=== PATIENT | female | born 1945 | race Caucasian/White ===

== ENCOUNTER 2020-12-09 05:54 | Inpatient (IN) | payer MEDICARE, SELFPAY ==
[2020-12-09] VITALS (22 sets, daily range): BP systolic 131–187; BP diastolic 64–104; PULSE 73–107; RESP 14–24; TEMP 36.1–37.1; O2SAT 90–99; BMI 37.8
--- NOTE | ~2020-12-09 | XR_ITS ---
EXAMINATION: XR chest 1V portable DATE: 12/10/2020 06:08 INDICATION: Respiratory distress TECHNIQUE: frontal view of the chest was obtained. COMPARISON: Chest radiograph dated 03/27/[address] dated 12/10/2011 FINDINGS: Diffuse increased interstitial pattern in both lungs, right greater than left, with some peripheral [place] B-lines consistent with pulmonary edema. No pleural effusion or pneumothorax. The cardiomediast inal silhouette is normal. IMPRESSION: 1. Interval development of bilateral interstitial opacities and favor pulmonary edema over pneumonia. Reviewed, dictated and finalized at location A.
--- NOTE | ~2020-12-09 | CT_ITS ---
EXAMINATION: CTA chest abdomen pelvis DATE: 12/09/2020 06:35 INDICATION: Anterior chest pain. Assess for dissection. TECHNIQUE: Computed tomographic angiography (CTA) of the chest, abdomen and pelvis was performed with 100 cc of Omnipaque-350 intravenous contrast. Additional 3D reconstructions utilizing rotating maxim um intensity projection (MIP) were performed. Automated exposure control and iterative reconstruction technique were employed. The dose-length product was 1425.34 mGy-cm. COMPARISON: 03/27/2015 FINDINGS: Chest: Unchanged 4 mm noncalcified granuloma at the left lower lobe. Mild discoid atelectasis at the right m iddle lobe. No pneumonia, pulmonary edema or pleural effusion. Borderline heart size. No pericardial effusion. Thoracic aorta is normal in caliber with no dissection. No pathologically enlarged thoracic lymphadenopathy. Moderate thoracic spondylosis. Abdomen and pelvis: Diffuse hepatic steatosis. Cholecystectomy clips the gallbladder fossa. Spleen, pancreas, left kidney and bilateral adrenal glands are normal. 6 mm right renal cyst. Prominent diverticulosis with sigmoi d and descending colon predominance but without adjacent inflammatory change to suggest diverticuliti s. Small bowel and appendix are normal. Bladder, anteverted uterus and bilateral adnexa are normal. A bdominal aorta is normal in caliber with no dissection. Mild lumbar spondylosis. IMPRESSION: 1. No aortic dissection or other acute intrathoracic, abdominal or pelvic process. Reviewed, dictated and finalized at location A. IMPRESSION: 1. No aortic dissection or other acute intrathoracic, abdominal or pelvic proce ss.
--- NOTE | ~2020-12-09 | XR_ITS ---
EXAMINATION: XR abdomen/kub 1V EXAM DATE: 12/13/2020 16:22 INDICATION: Abdominal pain, constipation. TECHNIQUE: Frontal projection of the upper abdomen, frontal projection lower abdomen/pelvis for inter pretation. Comparison is made to prior examination from 03/25/2011. FINDINGS: Cholecystectomy clips. No dilated small bowel. Moderate amount of stool in the rectal vaul t, small to moderate amount of transverse colonic gas. Lung bases unremarkable. There is no organomeg susan. Mild lumbar levoscoliosis. IMPRESSION: Moderate amount of rectal vault stool, small to moderate amount of transverse colonic gas . Reviewed, dictated and finalized at location A. RACT OFFICER IMPRESSION: Moderate amount of rectal vault stool, small to moderate amount of transverse colonic gas.
--- NOTE | 2020-12-09 05:58 | ECG_ITS ---
Measurements Intervals [place] Rate: 81 P: 82 ND: 185 QRS: 65 QRSD: 118 T: 12 QT: 384 QTc: 448 Interpretive Statements SINUS RHYTHM ATRIAL AND VENTRICULAR PREMATURE COMPLEXES LOW QRS VOLTAGE IN PRECORDIAL LEADS RIGHT BUNDLE BRANCH BLOCK ABNORMAL ECG Electronically Signed On 12-09-2020 8:04:45 CDT by Sancho Jordan D.O.
[2020-12-09 06:25] LABS: Basophils Absolute Auto 0.1 K/mm3 (0.0-0.1); Basophils Percent Auto 0.8 % (0.2-1.2); Eosinophils Absolute Auto 0.1 K/mm3 (0-0.3); Eosinophils Percent Auto 1.1 % (0-4.4); Hematocrit 42.2 % (37.0-47.0); Hemoglobin 14.2 g/dL (12.0-15.0); Immature Granulocyte Absolute 0.01 K/mm3 (0.00-0.031); Immature Granulocyte Percent A 0.1 % (0-0.5); Lymphocytes Absolute Auto 1.62 K/mm3 (0.9-3.2); Lymphocytes Percent Auto 22.8 % (18.3-44.2); Mean Corpuscular HGB Conc 33.6 g/dl (32-36); Mean Corpuscular Hemoglobin 32.6 pg (26-34); Mean Platelet Volume 10.2 fl (7.4-10.4); Monocytes Absolute Auto 0.5 K/mm3 (0.1-0.6); Monocytes Percent Auto 7.2 % (2.6-8.5); Neutrophils Absolute Auto 4.8 K/mm3 (1.3-6.7); Platelet Count Result 273 k/mm3 (150-375); Red Blood Count 4.35 M/mm3 (4.2-5.4); Red Cell Distribution Width 12.9 % (11.5-14.5); White Blood Count 7.1 K/mm3 (4.5-10.0)
--- NOTE | 2020-12-09 06:29 | ED.CHESTPAIN ---
HPI - Chest Pain General Chief Complaint: Chest Pain Stated Complaint: chest pain Time Seen by Provider: 12/09/20 06:17 Source: patient Mode of arrival: EMS Limitations: no limitations History of Present Illness HPI narrative: 75-year-old female with a history of A. fib in the past, CAD status post stents arrives complaining of sudden onset of anterior chest pain radiating to the jaw bilateral arms and back since 11 PM last night. Pain was worse with a deep breath and with movement. No fever, no cough, no hemoptysis. No previous history of same. Patient first thought she had GERD took stomach medicines without relief. Pain sharp and constant. Related Data Home Medications Medication Instructions Recorded Confirmed albuterol sulfate INHALATION 12/09/20 alprazolam 12/09/20 apixaban [Eliquis] mg 12/09/20 blood sugar diagnostic [OneTouch 12/09/20 12/09/20 Verio test strips] cefuroxime axetil 12/09/20 ergocalciferol (vitamin D2) 12/09/20 glimepiride mg 12/09/20 levothyroxine 12/09/20 lisinopril 12/09/20 montelukast mg 12/09/20 simvastatin mg 12/09/20 sotalol 12/09/20 Allergies Allergy/AdvReac Type Severity Reaction Status Date / Time sulfamethoxazole Allergy Unknown Hives Verified 12/09/20 06:13 Review of Systems Review of Systems: CONSTITUTIONAL: no fever, no weight loss, no confusion EYES: no vision changes, no eye pain ENT: no rhinorrhea, no sore throat, no difficulty swallowing CARDIOVASCULAR: positive for chest pain, no leg edema, no palpitations RESPIRATORY: no cough, no shortness of breath, no hemoptysis GASTROINTESTINAL: no abdominal pain, no nausea, no vomiting, no diarrhea GENITOURINARY: no flank pain, no dysuria, no hematuria SKIN: no rash, no jaundice MUSCULOSKELETAL: no back pain, no trauma. NEUROLOGIC: No headache, no dizziness, no focal weakness PSYCHIATRIC: No hallucinations, no suicidal ideation Exam Narrative: General: alert, afebrile, answering all questions appropriately Head: normocephalic, atraumatic Eyes: EOMI bilaterally, anicteric, no injection ENT: moist mucous membranes, oropharynx patent, no rhinorrhea Neck: supple, trachea midline, no JVD Chest: equal chest rise bilaterally, no chest wall trauma noted Lungs: clear to auscultation bilaterally, respirations unlabored CV: regular rate, no YAMILE B, calf size equal bilaterally Abd: soft, non-distended, mild epigastric tend, no rebound, no gaurding, negative Phillips's : no CVA tenderness B, bladder non-distended EXT: no deformity noted, moving all extremities equally Skin: warm, dry, no pallor Neuro: alert, oriented x 3; CN 2-12 grossly intact, no dysarthria Psych: affect appropriate, thought content normal Course Course Emergency Course: CTA chest without evidence of acute aortic,thoracic or abdominal abnormality; Lungs without infiltrate or edema. Pain improving after nitro; EKG with new block compared to 2019; troponin positive at 0.11; other labs normal Patient of Dr Rolle last saw him 30 days ago. Spoke to Dr Ramos who will see patient in AM; chest pain currently 5/10 after 2 nitro. No relief with morphine. BP sys 146;will apply NTP; Reevaluation(s) Reevaluation #1: Patient back from CTA, no gross abnormalities seenby me, no dissection, no dilatation. Patient still saying now her pain is 10 out of 10 ordered nitro sublingual no edema on CTA chest no infiltrate, await troponin. Date: 12/09/20 Time: 06:39 Reevaluation #2: Patient 7/10 after 1 nitro; 2nd nitro given Date: 12/09/20 Time: 07:09 Reevaluation #3: Pain 5/10 after 2nd nitro; morphine ordered. Date: 12/09/20 Time: 07:23 Consultations Consultation #1: Spoke with Dr Ramos; we will keep patient NPO, hold eliquis and they will see her around 8 AM in ED; also advised NTP to anterior CA Date: 12/09/20 Time: 07:30 Vital Signs Vital signs: Vital Signs Temperature 36.9 C 12/09/20 05:58 Pulse Rate 81 12/09/20 05:58 Respiratory Rate 21 H 12/09/20 05:5
[2020-12-09 06:31] LABS: INR 0.9; Prothrombin Time 12.5 Seconds (11.1-14.7)
[2020-12-09 06:32] LABS: Partial Thromboplastin Time 28.3 SECONDS (22.3-36.8)
[2020-12-09 06:35] LABS: Anion Gap 9 mmol/L (8-16); Blood Urea Nitrogen 20 mg/dL (7-17); Calcium 9.6 mg/dL (8.4-10.2); Carbon Dioxide 28 mmol/L (22-30); Chloride 105 mmol/L (98-107); Estimated CRCL calculation 49 ml/min; Estimated Glomerular Filt Rate 54; Glucose 214 mg/dL (65-110); Potassium 4.4 mmol/L (3.4-5.0); Sodium 142 mmol/L (137-145)
[2020-12-09] MEDS: NITROGLYCERIN SL 0.4 MG TABLET SUBLINGUAL (06:54)
[2020-12-09] MEDS: SODIUM CHLORIDE 0.9% IV 1,000 ML 999 ML IV CONT (06:54)
[2020-12-09] MEDS: MORPHINE SULFATE (*CRX) 4 MG/ML INJ IV PUSH (07:23)
[2020-12-09] MEDS: SODIUM CHLORIDE 0.9% IV 1,000 ML 125 ML IV CONT (07:52)
[2020-12-09] MEDS: ONDANSETRON INJ 4 MG/2 ML VIAL IV PUSH ×2 (07:52→13:04)
[2020-12-09] MEDS: NITROGLYCERIN OINTMENT 1 INCH DOSE (07:56)
[2020-12-09] MEDS: ASPIRIN 81 MG CHEWABLE TABLET PO (08:25)
[2020-12-09 08:27] LABS: Cholesterol 173 mg/dL (0-200); HDL Direct 75 mg/dL; Triglycerides 208 mg/dL (<150)
[2020-12-09 08:39] LABS: LDL Cholesterol Direct 53 mg/dL
--- NOTE | 2020-12-09 10:00 | WPDHPUPDATE1 ---
History and Physical Update Update Date/Time: 12/09/20 1000am History and Physical has been reviewed, including an updated exam of the patient. There are NO changes in the patient's condition. Risks, benefits, and alternatives have been discussed and questions answered. Patient agrees to proceed with procedure.
--- NOTE | 2020-12-09 10:00 | WPDMODSED ---
Moderate Sedation Note-Pt Data Patient Data Allergies Allergy/AdvReac Type Severity Reaction Status Date / Time sulfamethoxazole Allergy Unknown Hives Verified 12/09/20 06:13 Home Medications Medication Instructions Recorded Confirmed Type albuterol sulfate INHALATION 12/09/20 History alprazolam 12/09/20 History apixaban [Eliquis] mg 12/09/20 History blood sugar diagnostic [OneTouch 12/09/20 12/09/20 History Verio test strips] cefuroxime axetil 12/09/20 History ergocalciferol (vitamin D2) 12/09/20 History glimepiride mg 12/09/20 History levothyroxine 12/09/20 History lisinopril 12/09/20 History montelukast mg 12/09/20 History simvastatin mg 12/09/20 History sotalol 12/09/20 History Current Medications: Active Medications Acetaminophen (Acetaminophen 325 Mg Tablet) 650 mg PO Q4H PRN PRN Reason: Mild Pain (1-3) Al Hydrox/Mg Hydrox/Simethicone (Mag Hydrox/Al Hydrox/Simeth 30 Ml Udc) 30 ml PO Q6H PRN PRN Reason: Indigestion Albuterol (Albuterol Sulfate Neb 2.5 Mg/0.5 Ml Inh) 2.5 mg INHALATION Q4HRT PRN PRN Reason: Shortness Of Breath Aspirin (Aspirin 81 Mg Chewable Tablet) 81 mg PO DAILY@0800 JEFFERY Last Admin: 12/09/20 08:25 Dose: 81 mg Documented by: Dextrose (Dextrose 50% 25 Gm/50 Ml Syringe) 12.5 gm IV PUSH PRN PRN; Protocol PRN Reason: Hypoglycemia Glucagon (Glucagon For Inj 1 Mg Vial) 1 mg IM PRN PRN; Protocol PRN Reason: Hypoglycemia Glucose (Glucose Oral Gel 15 Gm Of Glucse In 37.5 Gm Tube) 15 gm PO PRN PRN; Protocol PRN Reason: Hypoglycemia Dextrose (Dextrose 5% 1,000 Ml) 1,000 mls @ 100 mls/hr IVPB PRN PRN; Protocol PRN Reason: Hypoglycemia Sodium Chloride (Normal Saline Iv) 1,000 mls @ 125 mls/hr IV CONT .Q8H ONE Stop: 12/09/20 22:51 Insulin Aspart (Insulin Aspart (*Bkc) 100 Units/Ml) 2 - 5 units SUB-Q TIDWM JEFFERY; Protocol Nitroglycerin (Nitroglycerin Sl 0.4 Mg Tablet) 0.4 mg SUBLINGUAL Q5MIN PRN PRN Reason: Chest Pain Ondansetron HCl (Ondansetron Inj 4 Mg/2 Ml Vial) 4 mg IV PUSH Q6H PRN PRN Reason: Nausea And Vomiting Last Admin: 12/09/20 13:04 Dose: 4 mg Documented by: Sedation/Anesthesia: No previous sedation/anesthesia problems (including family history). [facility] Past Medical History Medical History Anxiety CAD (coronary artery disease) Chronic anticoagulation COPD (chronic obstructive pulmonary disease) DM2 (diabetes mellitus, type 2) Glaucoma History of atrial fibrillation Hyperlipidemia associated with type 2 diabetes mellitus Hypertension associated with type 2 diabetes mellitus Hypothyroidism Surgical History Surgical History H/O cataract extraction H/O heart artery stent Previous RCA and a stent today 12/09/2020 H/O partial thyroidectomy H/O right wrist surgery H/O tubal ligation Hx of cholecystectomy Family History Family History Mother Cancer Father Pulmonary emboli Social History Social History (Updated 12/09/20 @ 15:03 by Galina Briones NP) Social History: The patient tells me that she never smoked but she had secondhand exposure through her ex- and other family members as well as her job who. No alcohol marijuana or illicit drugs. 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 She had 7 children but only 6 arrived. She is . She is does not have a durable power litigation attorney for healthcare. Code status full code. Alcohol intake: never Substance use: never Spiritual care concerns: No Mod Sed Physical Exam Physical Exam Pre Procedural Exam: Normal: Appearance, Eyes, Ears, Nose, Neck, Throat, Airway, Lungs, Heart Size, Heart Rate, Heart Rhythm, Neuro Exam, Abdomen, Liver, Kidneys, Spleen, Breasts, Genitalia, Extremities and Skin Hours since solid foods: 8 Hours since liquid intake: 8 Mallampati Classification: class 1 Internal Medicine - PN: Ob
--- NOTE | 2020-12-09 10:39 | ECG_ITS ---
Measurements Intervals [place] Rate: 84 P: 94 UT: 202 QRS: 28 QRSD: 122 T: 5 QT: 383 QTc: 453 Interpretive Statements SINUS RHYTHM BORDERLINE AV CONDUCTION DELAY RIGHT BUNDLE BRANCH BLOCK LOW VOLTAGE- DIFFUSE LEADS MINIMAL Q WAVES- INFERIOR LEADS ANTEROSEPTAL ST ELEVATION MYOCARDIAL INFARCT- ACUTE ABNORMAL ECG Electronically Signed On 12-09-2020 15:38:48 CDT by Sancho Jordan D.O.
--- NOTE | 2020-12-09 10:41 | ADMGEN ---
This patient, Jenni Salinas, was admitted to IMU Room 206-01. Patient/family oriented to hospital policies and general routines including ID bracelet, bed and alarms, visiting hours, pain management, procedures, bathroom and other care routines, personal items, smoking policy, room service/diet, and visiting hours. Information on how to activate the Rapid Response Team has been discussed. Patient/Family are encouraged to report perceived risks to care and to ask questions if they do not understand what they are told or what they should do.
--- NOTE | 2020-12-09 11:10 | PC.NURSE ---
Patient to geoscience laboratory technician via hospital bed, IV access intact.
--- NOTE | 2020-12-09 12:45 | PC.NURSE ---
This patient, Jenni Salinas, was received from [[id number]] on 12/09/20 at 1245. Patient/family oriented to unit policies and routines RECEIVED PATIENT VIA SEAMLESS TUBE MILL OPERATOR AFTER PROCEDURE. REPORT DONE AT BEDSIDE WITH NURSE BURNS. RIGHT GROIN SITE CLEAN DRY AND INTACT, NO BLEEDING OR HEMATOMA PRESENT.
--- NOTE | 2020-12-09 12:56 | PM.CNCAR ---
Assessment and Plan Assessment and plan (1) ST elevation [place] (STEMI): Code(s): I21.3 - ST elevation (STEMI) myocardial infarction of unspecified site Status: Acute Assessment and Plan: Patient presents with unstable angina initial EKG with RBBB without acute ST elevation changes. However, subsequent EKG revealed new septal in inferior ST-elevation in association with worsening chest pain. Emergent coronary angiography advised. Risks, benefits, alternatives explained to the patient and her daughter over the phone. Explained to both patient at significantly higher bleeding risk as she was on full systemic anticoagulation with Eliquis in which her last dose was evening prior to presentation. Statin, sotalol. Will need to minimize triple therapy much as possible recommendations to follow after coronary angiography depending on intervention. Risks including but not limited to , stroke, myocardial infarction, bleeding, infection, renal insufficiency and or arrhythmias. 2D echocardiogram. Case discussed with my interventional partner Dr. Sorenson immediately upon review 12 lead EKG who verbalized understanding and agreed to proceed with emergent coronary angiography. (2) CAD (coronary artery disease): Code(s): I25.10 - Atherosclerotic heart disease of [place] coronary artery without angina pectoris Status: Acute Assessment and Plan: As above, history of RCA stent 2.5 x 12 mm drug-eluting to RCA 2010. Continue aggressive medical therapy. (3) Hypertension associated with type 2 diabetes mellitus: Code(s): E11.59 - Type 2 diabetes mellitus with other circulatory complications; I15.2 - Hypertension secondary to endocrine disorders Status: Acute Assessment and Plan: Stable, no acute issues. Continue medical therapy. (4) Hyperlipidemia associated with type 2 diabetes mellitus: Code(s): E11.69 - Type 2 diabetes mellitus with other specified complication; E78.5 - Hyperlipidemia, unspecified Status: Acute Assessment and Plan: Continue simvastatin. Goal LDL less than 70. Check fasting lipid profile. 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 Will resume post cardiac catheterization when appropriate. (6) History of atrial fibrillation: Code(s): Z86.79 - Personal history of other diseases of the circulatory system Status: Acute Assessment and Plan: Maintaining sinus rhythm on sotalol. Monitor 12 EKG, QT interval and renal function. Stable thus far. History of Present Illness History of Present Illness Consult date/time: Date of service: 12/09/20 1040 Requesting physician: Rachell Rice MD Consult reason: chest pain Reason For Visit: chest pain rule out acs Narrative: Patient is a very pleasant 75-year-old female well known to me whom I follow as an outpatient with a past medical history significant for hypertension, diabetes mellitus, atrial fibrillation status post cardioversion in chronic maintenance with sotalol and systemic anticoagulation with Eliquis, history of CAD with remote drug-eluting stent implantation 12/21/10 with 2.5x12 mm Xience drug-eluting stent to RCA who states she was in her usual state of health when approximately 11:00 p.m. at rest she developed rather sudden onset substernal chest pressure worse with deep breathing. Patient states she had eaten approximately 2 hours before felt initially this may have just been severe acid indigestion for which she took antacids without any resolution. When asked why she did not present sooner she states she did not have a ride until this morning (which upon speaking to her daughter was not the case) and I reminded her she should have called EMS. She denied associated shortness of breath, nausea vomiting. She has never experienced symptoms similar to this in the past. Sh
--- NOTE | 2020-12-09 13:03 | PC.NURSE ---
Cardiopulmonary Rehab Services flyer was given to patient.
[2020-12-09 13:12] LABS: Glucose Point of Care 218 mg/dl (65-105)
--- NOTE | 2020-12-09 13:48 | ECG_ITS ---
Measurements Intervals [place] Rate: 94 P: 90 [place]: 209 QRS: 65 QRSD: 120 T: 30 QT: 366 QTc: 459 Interpretive Statements SINUS RHYTHM ATRIAL PREMATURE COMPLEX RIGHT BUNDLE BRANCH BLOCK LOW VOLTAGE- DIFFUSE LEADS ANTEROSEPTAL INFARCT- PROBABLY RECENT BASELINE ARTIFACT- II, III, AVL, AVF ABNORMAL ECG Electronically Signed On 12-09-2020 15:40:37 CDT by Sancho Jordan D.O.
--- NOTE | 2020-12-09 14:45 | PM.IMHP ---
H&P: HPI History of Present Illness Date/Time: 12/09/20 14:45 this is a 75-year-old female patient who has a past medical history of atrial fibrillation and coronary artery disease with a stent in her RCA. The patient was complaining of anterior chest pain radiating to the jaw bilateral arms and back since 11:00 p.m. last night. Patient stated that her pain is worse with a deep breath and with movement. She has no fever chills or cough. No hemoptysis. Patient thought that she was having problems with her acid reflux and took medicine for stomach without any released. Her pain was sharp and constant. First EKG was read as atrial ventricular premature complexes low QRS voltage right bundle branch block. The neck is EKG shows a STEMI in V1 V2 and V3. The patient was taken to cardiac color laboratory technician and received another stent. Please see Cardiology procedure note. The patient has been nauseated since she came back from the cardiac catheterization lab. Her Eliquis was placed on hold and will resume post cardiac catheterization when appropriate. Her troponin was noted to be 0.110. Blood sugar 218. A1c 7.0. The patient was given aspirin, IV fluids, nitroglycerin, morphine, Zofran, heparin and, fentanyl. The patient is being admitted to inpatient status on the date of service of 12/09/2020. Chief Complaint: Chest pain Review of Systems Review of Systems: All systems reviewed & are unremarkable except as noted in HPI and below Constitutional: Constitutional: Reports as per HPI and Reports no additional constitutional complaints Eyes: Eyes: Reports as per HPI and Reports no additional eye complaints ENT: Reports system reviewed and no additional complaints, except as documented and Reports Normal hearing present Cardiovascular: Cardiovascular: Reports no additional cardiovascular complaints Respiratory: Respiratory: Reports no additional respiratory complaints and Reports no additional respiratory complaints Gastrointestinal: Gastrointestinal: Reports as per HPI and Reports no additional gastrointestinal complaints Musculoskeletal: Musculoskeletal: Reports no additional musculoskeletal complaints Integumentary/Breasts: Skin/Breast: Reports system reviewed and no additional complaints, except as docu and Reports as per HPI Neurologic: Reports system reviewed and no additional complaints, except as documented, Reports as per HPI and Reports Normal hearing present Psychiatric: Psychiatric: Reports no additional psychiatric complaints and Reports as per HPI Endocrine: Endocrine: Reports no additional endocrine complaints Hematologic/Lymphatic: Hematologic/Lymphatic: Reports no additional hematologic/lymphatic complaints Allergic/Immunologic: Allergic/Immunologic: Reports no additional allergic/immunologic complaints [facility] Past Medical History Medical History (Updated 12/09/20 @ 14:57 by Galina Briones NP) Anxiety CAD (coronary artery disease) Chronic anticoagulation COPD (chronic obstructive pulmonary disease) DM2 (diabetes mellitus, type 2) Glaucoma History of atrial fibrillation Hyperlipidemia associated with type 2 diabetes mellitus Hypertension associated with type 2 diabetes mellitus Hypothyroidism Surgical History Surgical History (Updated 12/09/20 @ 14:57 by Galina Briones NP) H/O cataract extraction H/O heart artery stent Previous RCA and a stent today 12/09/2020 H/O partial thyroidectomy H/O right wrist surgery H/O tubal ligation Hx of cholecystectomy Family History Family History (Updated 12/09/20 @ 14:58 by Galina Briones NP) Mother Cancer Father Pulmonary emboli Social History Social History (Updated 12/09/20 @ 15:03 by Galina Briones NP) Social History: The patient tells me that she never smoked but she had secondhand exposure through her ex- and other family members as well as her job who. No alcohol marijuana or illicit drugs. 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 She had 7 chil
--- NOTE | 2020-12-09 16:57 | WPDCARDPROC ---
Cardiac Cath Procedure Note Date of procedure:: 12/09/20 Performing physician:: Sophia Sorenson MD date of service 12/09/2020 Indication:: anterior STEMI Brief clinical history:: 75 patient history of RCA stent, hypertension, AFib Eliquis who presents to hospital with chest pain. Was found to have intermittent ST elevation [place] Procedure Procedure performed:: 1-Moderate sedation that started at a.m.and ended at 10:45 a.m.using25 mcg fentanyl. The registered nurse was darin curtis. 2-Selective left and right coronary angiogram. 3-Left heart catheterization with measurement of LVEDP and measurement of gradient across aortic valve. 4- deployment of drug-eluting stent 3.25 x 18 covering proximal LAD. 4-Right common femoral arterial angiogram. 5-Deployment of 6 Beninese Angio-Seal. Sedation/Medication given:: Moderate sedation. Access site:: Right common femoral artery. Estimated blood loss:: 10cc Procedure note:: After informed consent patient was brought in to cytogenetics laboratory manager with the was draped and prepped in usual manner. Moderate sedation was given and the right groin was infiltrated using 1% lidocaine. Five Beninese sheath was obtained using micropuncture needle and the modified Seldinger technique. Selective left coronary angiogram was done using JL4 catheter with the tip of the catheter placed in the left main coronary artery. then after that guide catheter CLS 3.5 was advanced engaging the left main. Coronary luge wire was advanced to distal LAD and balloon angioplasty was done using 3 by 15 with inflation done under nominal pressure for 25 seconds. Th the deployed a drug-eluting stent 3.25 x 18 covering proximal LAD and over pressure for 25 seconds. Selective right coronary angiogram was done using JR4 catheter with the tip of the catheter placed to the right coronary artery. After that 5 Beninese pigtail catheter was advanced across the aortic valve into the left ventricle with measurement of LVEDP and measurement of gradient across aortic valve. Right common femoral arterial angiogram was done. Findings:: 1- left coronary artery is a large artery that divides into large LAD, large circumflex artery. Left main is Free of disease. 2- left anterior descending artery is a large artery that runs and wraps around the apex. There is a large clot hanging at the proximal LAD with JAVID flow 2. At the very proximal portion of the LAD there is a large diagonal branch that looks unremarkable. 3- leftcircumflex artery is a large artery And has proximal 30% at then small OM1 branch looks unremarkable. Large om 2 branch distally has ostial 70%. 4- right coronary artery is Totally occluded proximally 5- LVEDP was 22 mm Hgand no gradient across aortic valve. 6- opening arterial pressure was 160/80and closing pressure was 130/70 7- right femoral artery angiogram shows no significant disease in the right common femoral artery. Conclusion:: - successful stenting of proximal LAD culprit lesion for STEMI. - chronic total occlusion of right coronary artery with [id number] collaterals Assessment and Plan Additional Plan - continue aspirin and Brilinta - aggressive risk factor modification for CAD
[2020-12-09] MEDS: ACETAMINOPHEN 325 MG TABLET 650 MG PO (20:14)
[2020-12-09] MEDS: MAG HYDROX/AL HYDROX/SIMETH 30 ML UDC PO (20:14)
[2020-12-09] MEDS: SOTALOL HCL 80 MG TABLET PO (20:14)
[2020-12-09] MEDS: lisinopriL 20 MG TABLET 40 MG PO (20:15)
[2020-12-09] MEDS: TICAGRELOR 90 MG TABLET PO (20:17)
[2020-12-09 23:23] LABS: Glucose Point of Care 210 mg/dl (65-105)
[2020-12-10] VITALS (15 sets, daily range): BP systolic 125–158; BP diastolic 65–99; PULSE 85–107; RESP 16–30; TEMP 36.6–37; O2SAT 94–100
[2020-12-10] MEDS: ALPRAZolam (*CRX) 0.25 MG TABLET PO (01:41)
[2020-12-10 05:09] LABS: Basophils Absolute Auto 0.1 K/mm3 (0.0-0.1); Basophils Percent Auto 0.4 % (0.2-1.2); Eosinophils Percent Auto 0.1 % (0-4.4); Hemoglobin 13.9 g/dL (12.0-15.0); Immature Granulocyte Absolute 0.07 K/mm3 (0.00-0.031); Immature Granulocyte Percent A 0.5 % (0-0.5); Lymphocytes Absolute Auto 0.91 K/mm3 (0.9-3.2); Lymphocytes Percent Auto 6.6 % (18.3-44.2); Mean Corpuscular HGB Conc 32.3 g/dl (32-36); Mean Corpuscular Hemoglobin 31.4 pg (26-34); Mean Corpuscular Volume 97.1 fl (80-100); Mean Platelet Volume 10.2 fl (7.4-10.4); Monocytes Absolute Auto 0.8 K/mm3 (0.1-0.6); Monocytes Percent Auto 6.1 % (2.6-8.5); Neutrophils Absolute Auto 11.9 K/mm3 (1.3-6.7); Neutrophils Percent Auto 86.3 % (45.5-73.1); Platelet Count Result 263 k/mm3 (150-375); Red Blood Count 4.43 M/mm3 (4.2-5.4); Red Cell Distribution Width 13.1 % (11.5-14.5); White Blood Count 13.8 K/mm3 (4.5-10.0)
[2020-12-10 05:35] LABS: Alanine Aminotransferase 78 U/L (4-35); Albumin Level 4.2 g/dL (3.5-5.1); Alkaline Phosphatase 73 U/L (38-126); Anion Gap 7 mmol/L (8-16); Aspartate Amino Transferase 308 U/L (14-36); Bilirubin,Total 0.9 mg/dL (0.2-1.3); Blood Urea Nitrogen 16 mg/dL (7-17); Carbon Dioxide 26 mmol/L (22-30); Chloride 104 mmol/L (98-107); Estimated CRCL calculation 55 ml/min; Estimated Glomerular Filt Rate > 60; Glucose 225 mg/dL (65-110); Magnesium 2.1 mg/dL (1.6-2.3); Potassium 4.1 mmol/L (3.4-5.0); Sodium 137 mmol/L (137-145)
[2020-12-10] MEDS: LEVOTHYROXINE SODIUM 75 MCG TABLET PO (05:42)
[2020-12-10 05:45] LABS: Lactate Dehydrogenase 2126 U/L (313-618)
[2020-12-10] MEDS: FUROSEMIDE INJ 40 MG/4 ML VIAL IV PUSH (06:06)
[2020-12-10 09:06] LABS: Glucose Point of Care 265 mg/dl (65-105)
[2020-12-10] MEDS: INSULIN ASPART (*BKC) 100 UNITS/ML SUB-Q ×2 (09:07→13:14)
[2020-12-10] MEDS: ASPIRIN 81 MG CHEWABLE TABLET PO (10:40)
[2020-12-10] MEDS: lisinopriL 20 MG TABLET 40 MG PO (10:40)
[2020-12-10] MEDS: SIMVASTATIN 20 MG TABLET PO (10:41)
[2020-12-10] MEDS: MONTELUKAST SODIUM 10 MG TABLET PO (10:41)
[2020-12-10] MEDS: SOTALOL HCL 80 MG TABLET PO ×2 (10:41→20:09)
[2020-12-10] MEDS: INSULIN GLARGINE (*BKC) 100 UNITS/ML 15 UNITS SUB-Q (10:42)
[2020-12-10] MEDS: TICAGRELOR 90 MG TABLET PO ×2 (10:42→20:10)
--- NOTE | 2020-12-10 10:52 | WPDCNINT ---
Assessment and Plan Assessment and plan (1) ST elevation [place] (STEMI): Code(s): I21.3 - ST elevation (STEMI) myocardial infarction of unspecified site Status: Acute Assessment and Plan: status post cardiac catheterization and successful stenting of proximal LAD culprit lesion for STEMI. which also showed chronic total occlusion of right coronary artery with [id number] collaterals DAPT, beta-marti, statin, FARIDA-inhibitor (2) DM2 (diabetes mellitus, type 2): Code(s): E11.9 - Type 2 diabetes mellitus without complications Status: Acute Assessment and Plan: Accu-Cheks with sliding scale insulin. A1c 7.0. increase sliding scale add Lantus (3) COPD (chronic obstructive pulmonary disease): Code(s): J44.9 - Chronic obstructive pulmonary disease, unspecified Status: Chronic Assessment and Plan: Continue with Singulair and inhalers. (4) Hypothyroidism: Code(s): E03.9 - Hypothyroidism, unspecified Status: Chronic Assessment and Plan: TSH is in normal range continue levothyroxine. (5) History of atrial fibrillation: Code(s): Z86.79 - Personal history of other diseases of the circulatory system Status: Acute Assessment and Plan: Eliquis is currently on hold will be resumed as per cardiology recommendation currently in sinus rhythm (6) Hypertension associated with type 2 diabetes mellitus: Code(s): E11.59 - Type 2 diabetes mellitus with other circulatory complications; I15.2 - Hypertension secondary to endocrine disorders Status: Acute Assessment and Plan: continue lisinopril and sotalol (7) Anxiety: Code(s): F41.9 - Anxiety disorder, unspecified Status: Chronic Assessment and Plan: Continue with alprazolam p.r.n. (8) Congestive heart failure: Code(s): I50.9 - Heart failure, unspecified Status: Acute Assessment and Plan: continue FARIDA-inhibitor and beta-marti chest x-ray showed pulmonary edema and patient was given Lasix she is now feeling better check echocardiogram Additional Plan DVT prophylaxis- resume Eliquis incentive spirometry and up in chair transfer out of ICU today Mainframe Analyst Consult Note Consult date: 12/10/20 HPI: Jenni Salinas is a 75 year old female with a past medical history significant for hypertension, diabetes mellitus, atrial fibrillation status post cardioversion in chronic maintenance with sotalol and systemic anticoagulation with Eliquis, history of CAD with remote drug-eluting stent implantation 12/21/10 with 2.5x12 mm Xience drug-eluting stent to RCA who was admitted yesterday with chief complaint of chest pain and was diagnosed with ST segment elevation NC. patient was evaluated by Cardiology in ER and taken to cardiac catheterization lab where she underwent successful stenting of proximal LAD culprit lesion for STEMI patient also had chronic total occlusion of RCA. Patient was admitted to ICU post procedure for further evaluation management. Overnight patient had some respiratory distress and nausea. Chest x-ray showed pulmonary edema patient was given a dose of Lasix. This morning when I saw the patient she states she feels better and her dyspnea has resolved. Patient is sitting on the side of bed and is on 2 L nasal cannula and states that she does not have any chest pain shortness of breath at this time. she does admit to having a chronic dry cough which he blames it on her COPD and asthma. She also does admit to having orthopnea and sleeps with the head and elevated. review of systems also positive for chronic knee pain in bilateral knees prevents her from walking long distances. All other systems were reviewed and were negative Review of Systems Review of Systems: All systems reviewed & are unremarkable except as noted in HPI and below ( HPI) [facility] Past Medical History Medical History (Reviewed 12/10/20 @ 11:06 by
--- NOTE | 2020-12-10 12:43 | PM.PNCARD ---
Progress Note: A&P Assessment and Plan (1) ST elevation [place] (STEMI): Code(s): I21.3 - ST elevation (STEMI) myocardial infarction of unspecified site Status: Acute Assessment and Plan: Patient presents with unstable angina initial EKG with RBBB without acute ST elevation changes with elevated Trop I consistent with NSTEMI later developing into anterior STEMI by EKG and progression of sxs. Status post emergent coronary angiography with large clot burden proximal LAD outside of culprit lesion status post successful stent implantation with 3.25 x 18 mm Xience drug-eluting stent without complication. Patient feeling very well, no further anginal symptoms. Patient will require triple therapy with aspirin 81 mg daily, Brilinta 90 mg twice daily and re-initiation of Eliquis 5 mg twice daily. Patient advised she is at high risk for bleeding complication. Plan would be to continue triple therapy for 1 month then discontinue aspirin. Discussed adjustment to clopidogrel as alternative to Brilinta, however, given STEMI would prefer to continue Brilinta for the time being. Patient verbalized understanding and wishes to continue with present management. Continue home cardiovascular medical therapy. Plan to resume Eliquis Sunday. This may discharge home at the earliest tomorrow afternoon provided no significant ventricular arrhythmias, patient without recurrent anginal symptoms. 2D echocardiogram. Recommendation to follow thereafter. Okay to transfer out of ICU to IMU. DVT prophylaxis. (2) CAD (coronary artery disease): Code(s): I25.10 - Atherosclerotic heart disease of [place] coronary artery without angina pectoris Status: Acute Assessment and Plan: As above. Prior history of RCA stent 2.5 x 12 mm drug-eluting to RCA 2010. Continue aggressive medical therapy. (3) Hypertension associated with type 2 diabetes mellitus: Code(s): E11.59 - Type 2 diabetes mellitus with other circulatory complications; I15.2 - Hypertension secondary to endocrine disorders Status: Acute Assessment and Plan: Stable, no acute issues. Continue medical therapy. (4) Hyperlipidemia associated with type 2 diabetes mellitus: Code(s): E11.69 - Type 2 diabetes mellitus with other specified complication; E78.5 - Hyperlipidemia, unspecified Status: Acute Assessment and Plan: Continue simvastatin. Goal LDL less than 70. Check fasting lipid profile. (5) Chronic anticoagulation: Code(s): Z79.01 - halfway (current) use of anticoagulants Status: Acute Assessment and Plan: Hold Eliquis for now. Will resume post cardiac catheterization when appropriate. (6) History of atrial fibrillation: Code(s): Z86.79 - Personal history of other diseases of the circulatory system Status: Acute Assessment and Plan: Maintaining sinus rhythm on sotalol. Monitor 12 EKG, QT interval and renal function. Stable thus far. Continue current therapy. Subjective Date/time seen: Date of service: 12/10/20 12:43 Follow-up for presentation her initial NSTEMI ultimately anterior STEMI status post 3.25 x 18 mm Xience drug-eluting stent to proximal LAD No chest pain. Patient feels much better. No shortness of breath, nausea vomiting. No new issues overnight. Maintaining sinus rhythm. Denies right groin pain. Feels a little tired but otherwise no complaints. Review of Systems Review of Systems: All systems reviewed & are unremarkable except as noted in HPI and below Constitutional: Constitutional: Reports as per HPI, Reports no additional constitutional complaints, Denies fatigue, Denies headache(s) and Denies lethargy Eyes: Eyes: Reports as per HPI and Reports no additional eye complaints ENT: Reports system reviewed and no additional complaints, except as documented, Reports as per HPI and Denies headache(s) Cardiovascular: Cardiovascular: Reports as per HPI, Reports no additional c
--- NOTE | 2020-12-10 12:50 | ECHO_ITS ---
Patient Info Name: Jenni Slainas Age: 75 years : 1945 Gender: Female Ht: 64 in Wt: 218 lbs BSA: 2.16 m2 HR: 88 bpm BP: 135 / 65 mmHg Heart Rhythm: Sinus Rhythm Exam Date: 12/10/2020 2:18 PM Exam Location: [facility] Patient Status: Inpatient Admit Date: 12/09/2020 Staff Ordering Physician: Flip Cordova MD Customs Manager: Porfirio Phillips RDCS, RT Attending Provider: Rachell Rice MD Referring Physician: Tasha CLAIRE; Exam Type: CA echo doppler color flow Study Info Indications I21.3 - ST elevation (STEMI) myocardial infarction of unspecified site Complete two-dimensional, color flow and Doppler transthoracic echocardiogram is performed. Strain analysis performed. Summary 1. Complete two-dimensional, color flow and Doppler transthoracic echocardiogram is performed. 2. Left ventricular systolic function is severely reduced, estimated at 20-25% with akinetic apex, apical lateral, apical anterior, apical inferior, apical septal, and mid inferoseptal [place]. . 3. Left ventricular septal wall motion is abnormal with septal motion related to bundle branch block. 4. The left ventricular diastolic function is grade II diastolic dysfunction. 5. Right ventricular systolic function is reduced with severe hypokinesis of the apical and mid RV shel[place].. 6. There is mild tricuspid valve regurgitation. 7. Moderate pulmonary hypertension, estimated pulmonary arterial systolic pressure is 46 mmHg. Left Ventricle Left ventricular chamber dimension is normal. Left ventricular systolic function is severely reduced, estimated at 20-25% with akinetic apex, apical lateral, apical anterior, apical inferior, apical septal, and mid inferoseptal [place]. . There is mildly increased left ventricular wall thickness. Left ventricular septal wall motion is abnormal with septal motion related to bundle branch block. The left ventricular diastolic function is grade II diastolic dysfunction. There is no thrombus visualized in the left ventricle. Global longitudinal strain is moderately elevated at -5 %. Right Ventricle Right ventricular chamber dimension is normal. Right ventricular systolic function is reduced with severe hypokinesis of the apical and mid RV shelby.. Left Atria Left atrial chamber dimension is normal. Right Atria Right atrial chamber dimension is normal. Aortic Valve The aortic valve is probable trileaflet. There is no aortic valve stenosis. There is trace aortic valve regurgitation. Pulmonic Valve The pulmonic valve is not well visualized. Mitral Valve The mitral valve has normal leaflets. There is mild mitral valve regurgitation. The mitral valve annulus is mildly calcified. Tricuspid Valve The tricuspid valve leaflets are normal. There is mild tricuspid valve regurgitation. Moderate pulmonary hypertension, estimated pulmonary arterial systolic pressure is 46 mmHg. Pericardium/Pleural The pericardium appears increased echogenicity of the pericardium. There is trivial pericardial effusion. Inferior Vena Cava Normal inferior vena cava with >50% collapse upon inspiration consistent with normal right atrial pressure, 5 mmHg. Aorta The aortic root size at the sinus of Valsalva is normal. There is mild aortic atherosclerosis. Left Ventricular Outflow Tract Name Value Normal
--- NOTE | 2020-12-10 13:02 | PM.IMPN ---
Progress Note: A&P Assessment and Plan (1) ST elevation [place] (STEMI): Code(s): I21.3 - ST elevation (STEMI) myocardial infarction of unspecified site Status: Acute Assessment and Plan: The patient was taken to the cardiac catheterization lab and reportedly received another stent. See cardiology notes. Janneth is on home at this time. Omayrais on hold and resume from Sunday noted Cardiac catheterization done on 12/09/2020 shows Findings:: 1- left coronary artery is a large artery that divides into large LAD, large circumflex artery. Left main is Free of disease. 2- left anterior descending artery is a large artery that runs and wraps around the apex. There is a large clot hanging at the proximal LAD with JAVID flow 2. At the very proximal portion of the LAD there is a large diagonal branch that looks unremarkable. 3- leftcircumflex artery is a large artery And has proximal 30% at then small OM1 branch looks unremarkable. Large om 2 branch distally has ostial 70%. 4- right coronary artery is Totally occluded proximally 5- LVEDP was 22 mm Hgand no gradient across aortic valve. 6- opening arterial pressure was 160/80and closing pressure was 130/70 7- right femoral artery angiogram shows no significant disease in the right common femoral artery. Conclusion:: - successful stenting of proximal LAD culprit lesion for STEMI. - chronic total occlusion of right coronary artery with fegu-sc-nibnl collaterals (2) DM2 (diabetes mellitus, type 2): Code(s): E11.9 - Type 2 diabetes mellitus without complications Status: Acute Assessment and Plan: Accu-Cheks with sliding scale insulin. A1c 7.0. She is on sulfonylurea at home Still benefit from switching this to SGLT2 inhibitors due to her underlying cardiac disease and recent STEMI (3) COPD (chronic obstructive pulmonary disease): Code(s): J44.9 - Chronic obstructive pulmonary disease, unspecified Status: Chronic Assessment and Plan: Continue with Singulair and inhalers. (4) Hypothyroidism: Code(s): E03.9 - Hypothyroidism, unspecified Status: Chronic Assessment and Plan: TSH normal, continue levothyroxine. (5) History of atrial fibrillation: Code(s): Z86.79 - Personal history of other diseases of the circulatory system Status: Acute Assessment and Plan: Eliquis is currently on hold. The patient has been controlled with sotalol. Resume Eliquis when able planned from Sunday. (6) Hypertension associated with type 2 diabetes mellitus: Code(s): E11.59 - Type 2 diabetes mellitus with other circulatory complications; I15.2 - Hypertension secondary to endocrine disorders Status: Acute Assessment and Plan: Continue with lisinopril when able. P.r.n. hydralazine (7) Anxiety: Code(s): F41.9 - Anxiety disorder, unspecified Status: Chronic Assessment and Plan: Continue with alprazolam (8) Pulmonary edema: Code(s): J81.1 - Chronic pulmonary edema Status: Acute Assessment and Plan: Noted in chest x-ray Lasix was given Echo pending Subjective Date/time seen: 12/10/20 13:02 Interval history: HPI: this is a 75-year-old female patient who has a past medical history of atrial fibrillation and coronary artery disease with a stent in her RCA. The patient was complaining of anterior chest pain radiating to the jaw bilateral arms and back since 11:00 p.m. last night. Patient stated that her pain is worse with a deep breath and with movement. She has no fever chills or cough. No hemoptysis. Patient thought that she was having problems with her acid reflux and took medicine for stomach without any released. Her pain was sharp and constant. First EKG was read as atrial ventricular premature complexes low QRS voltage right bundle branch block. The neck is EKG shows a STEMI in V1 V2 and V3. The patient was taken to cardiac slab lifting supervisor and received another stent. Pl
[2020-12-10 13:11] LABS: Glucose Point of Care 252 mg/dl (65-105)
[2020-12-10 17:52] LABS: Glucose Point of Care 193 mg/dl (65-105)
[2020-12-10 20:20] LABS: Glucose Point of Care 234 mg/dl (65-105)
[2020-12-11] VITALS (17 sets, daily range): BP systolic 93–123; BP diastolic 42–71; PULSE 76–92; RESP 20–24; TEMP 35.7–37.1; O2SAT 94–100
[2020-12-11 05:41] LABS: Basophils Percent Auto 0.4 % (0.2-1.2); Eosinophils Percent Auto 0.2 % (0-4.4); Hematocrit 37.7 % (37.0-47.0); Hemoglobin 12.5 g/dL (12.0-15.0); Immature Granulocyte Absolute 0.04 K/mm3 (0.00-0.031); Immature Granulocyte Percent A 0.4 % (0-0.5); Lymphocytes Percent Auto 12.2 % (18.3-44.2); Mean Corpuscular HGB Conc 33.2 g/dl (32-36); Mean Corpuscular Volume 93.5 fl (80-100); Mean Platelet Volume 10.4 fl (7.4-10.4); Monocytes Absolute Auto 0.9 K/mm3 (0.1-0.6); Monocytes Percent Auto 8.1 % (2.6-8.5); Neutrophils Absolute Auto 8.4 K/mm3 (1.3-6.7); Neutrophils Percent Auto 78.7 % (45.5-73.1); Platelet Count Result 229 k/mm3 (150-375); Red Blood Count 4.03 M/mm3 (4.2-5.4); Red Cell Distribution Width 12.7 % (11.5-14.5); White Blood Count 10.6 K/mm3 (4.5-10.0)
[2020-12-11 05:56] LABS: Alanine Aminotransferase 62 U/L (4-35); Albumin Level 3.9 g/dL (3.5-5.1); Alkaline Phosphatase 67 U/L (38-126); Anion Gap 4 mmol/L (8-16); Aspartate Amino Transferase 156 U/L (14-36); Bilirubin,Total 0.9 mg/dL (0.2-1.3); Blood Urea Nitrogen 23 mg/dL (7-17); Calcium 8.9 mg/dL (8.4-10.2); Carbon Dioxide 33 mmol/L (22-30); Chloride 98 mmol/L (98-107); Estimated CRCL calculation 46 ml/min; Estimated Glomerular Filt Rate 49; Glucose 203 mg/dL (65-110); Magnesium 2.3 mg/dL (1.6-2.3); Potassium 3.7 mmol/L (3.4-5.0); Sodium 135 mmol/L (137-145)
[2020-12-11] MEDS: LEVOTHYROXINE SODIUM 75 MCG TABLET PO (06:58)
[2020-12-11] MEDS: DOCUSATE SODIUM 100 MG CAPSULE PO ×2 (06:59→20:05)
[2020-12-11 08:31] LABS: Glucose Point of Care 182 mg/dl (65-105)
[2020-12-11] MEDS: ASPIRIN 81 MG CHEWABLE TABLET PO (09:54)
[2020-12-11] MEDS: SIMVASTATIN 20 MG TABLET PO (09:54)
[2020-12-11] MEDS: TICAGRELOR 90 MG TABLET PO ×2 (09:54→20:04)
[2020-12-11] MEDS: MONTELUKAST SODIUM 10 MG TABLET PO (09:54)
[2020-12-11] MEDS: lisinopriL 20 MG TABLET 40 MG PO (09:54)
[2020-12-11] MEDS: SOTALOL HCL 80 MG TABLET PO ×2 (09:55→20:04)
[2020-12-11] MEDS: INSULIN GLARGINE (*BKC) 100 UNITS/ML 15 UNITS SUB-Q (09:55)
--- NOTE | 2020-12-11 11:40 | PM.PNCARD ---
Progress Note: A&P Assessment and Plan (1) ST elevation [place] (STEMI): Code(s): I21.3 - ST elevation (STEMI) myocardial infarction of unspecified site Status: Acute Assessment and Plan: Patient presents with unstable angina initial EKG with RBBB without acute ST elevation changes with elevated Trop I consistent with NSTEMI later developing into anterior STEMI by EKG and progression of sxs. Status post emergent coronary angiography with large clot burden proximal LAD outside of culprit lesion status post successful stent implantation with 3.25 x 18 mm Xience drug-eluting stent without complication. Patient feeling very well, no further anginal symptoms. Patient will require triple therapy with aspirin 81 mg daily, Brilinta 90 mg twice daily and re-initiation of Eliquis 5 mg twice daily. Patient advised she is at high risk for bleeding complication. Plan would be to continue triple therapy for 1 month then discontinue aspirin. Plan to resume Eliquis Sunday morning. This may discharge home at the earliest tomorrow afternoon provided no significant ventricular arrhythmias, patient without recurrent anginal symptoms. Repeat 12 lead EKG. (2) Ischemic cardiomyopathy: Code(s): I25.5 - Ischemic cardiomyopathy Status: Acute Assessment and Plan: Echo personally reviewed and discussed with the patient. Patient with severe ischemic cardiomyopathy EF 20-25% is akinesis of the apical segments. Discussed alteration medical therapy such as Entresto. However, this would require washout of least 36 hours of lisinopril. Given relative hypotension if persistent will need to reduce lisinopril to 20 mg daily. Sotalol is working very well to maintain sinus rhythm as such I do not recommend discontinuation of favor of alternative AV mario alberto blocking agent such as carvedilol or Toprol XL. (3) CAD (coronary artery disease): Code(s): I25.10 - Atherosclerotic heart disease of [place] coronary artery without angina pectoris Status: Acute Assessment and Plan: As above. Prior history of RCA stent 2.5 x 12 mm drug-eluting to RCA 2010. Continue aggressive medical therapy. (4) Hypertension associated with type 2 diabetes mellitus: Code(s): E11.59 - Type 2 diabetes mellitus with other circulatory complications; I15.2 - Hypertension secondary to endocrine disorders Status: Acute Assessment and Plan: Relatively hypotensive this morning. If persists reduce lisinopril to 20 mg daily. Continue medical therapy. (5) Hyperlipidemia associated with type 2 diabetes mellitus: Code(s): E11.69 - Type 2 diabetes mellitus with other specified complication; E78.5 - Hyperlipidemia, unspecified Status: Acute Assessment and Plan: Continue simvastatin. Goal LDL less than 70, controlled at 53. Continue present regimen. (6) Chronic anticoagulation: Code(s): Z79.01 - intermodal customer service (current) use of anticoagulants Status: Acute Assessment and Plan: Hold Eliquis for now. Will resume post cardiac catheterization when appropriate tomorrow morning. Follow H&H, BMP. (7) History of atrial fibrillation: Code(s): Z86.79 - Personal history of other diseases of the circulatory system Status: Acute Assessment and Plan: Maintaining sinus rhythm on sotalol. Monitor 12 EKG, QT interval and renal function. Stable thus far. Continue current therapy. Subjective Date/time seen: Date of service: 12/11/20 11:40 Follow-up for STEMI Patient denies chest pain, shortness of breath or dizziness. Feels somewhat tired but otherwise doing fine. No new issues overnight. No other specific complaints. Maintaining sinus rhythm on telemetry. Review of Systems Review of Systems: All systems reviewed & are unremarkable except as noted in HPI and below Constitutional: Constitutional: Reports as per HPI, Reports no additional constitutional complaints, Reports fatigue, Denies headache(s
--- NOTE | 2020-12-11 11:45 | ECG_ITS ---
Measurements Intervals [place] Rate: 75 P: 93 WI: 177 QRS: 208 QRSD: 119 T: 208 QT: 452 QTc: 505 Interpretive Statements SINUS RHYTHM RIGHT BUNDLE BRANCH BLOCK LEFT POSTERIOR FASCICULAR BLOCK LOW VOLTAGE- DIFFUSE LEADS ANTEROSEPTAL INFARCT, PROBABLY RECENT T WAVE ABNORMALITY IN ANTEROLATERAL LEADS- CONSIDER ISCHEMIA ABNORMAL ECG Electronically Signed On 12-11-2020 16:36:56 CDT by Sancho Jordan D.O.
[2020-12-11 12:08] LABS: Glucose Point of Care 328 mg/dl (65-105)
[2020-12-11] MEDS: INSULIN ASPART (*BKC) 100 UNITS/ML SUB-Q (12:53)
--- NOTE | 2020-12-11 16:27 | PM.IMPN ---
Progress Note: A&P Assessment and Plan (1) ST elevation [place] (STEMI): Code(s): I21.3 - ST elevation (STEMI) myocardial infarction of unspecified site Status: Acute Assessment and Plan: The patient was taken to the cardiac catheterization lab and reportedly received another stent. See cardiology notes. Janneth is on home at this time. Omayrais on hold and resume from Sunday noted Cardiac catheterization done on 12/09/2020 shows Findings:: 1- left coronary artery is a large artery that divides into large LAD, large circumflex artery. Left main is Free of disease. 2- left anterior descending artery is a large artery that runs and wraps around the apex. There is a large clot hanging at the proximal LAD with JAVID flow 2. At the very proximal portion of the LAD there is a large diagonal branch that looks unremarkable. 3- leftcircumflex artery is a large artery And has proximal 30% at then small OM1 branch looks unremarkable. Large om 2 branch distally has ostial 70%. 4- right coronary artery is Totally occluded proximally 5- LVEDP was 22 mm Hgand no gradient across aortic valve. 6- opening arterial pressure was 160/80and closing pressure was 130/70 7- right femoral artery angiogram shows no significant disease in the right common femoral artery. Conclusion:: - successful stenting of proximal LAD culprit lesion for STEMI. - chronic total occlusion of right coronary artery with [id number] collaterals (2) DM2 (diabetes mellitus, type 2): Code(s): E11.9 - Type 2 diabetes mellitus without complications Status: Acute Assessment and Plan: Accu-Cheks with sliding scale insulin. A1c 7.0. She is on sulfonylurea at home Still benefit from switching this to SGLT2 inhibitors due to her underlying cardiac disease and recent STEMI (3) COPD (chronic obstructive pulmonary disease): Code(s): J44.9 - Chronic obstructive pulmonary disease, unspecified Status: Chronic Assessment and Plan: Continue with Singulair and inhalers. (4) Hypothyroidism: Code(s): E03.9 - Hypothyroidism, unspecified Status: Chronic Assessment and Plan: TSH normal, continue levothyroxine. (5) History of atrial fibrillation: Code(s): Z86.79 - Personal history of other diseases of the circulatory system Status: Acute Assessment and Plan: Eliquis is currently on hold. The patient has been controlled with sotalol. Resume Eliquis when able planned from Sunday. (6) Hypertension associated with type 2 diabetes mellitus: Code(s): E11.59 - Type 2 diabetes mellitus with other circulatory complications; I15.2 - Hypertension secondary to endocrine disorders Status: Acute Assessment and Plan: Continue with lisinopril when able. P.r.n. hydralazine (7) Anxiety: Code(s): F41.9 - Anxiety disorder, unspecified Status: Chronic Assessment and Plan: Continue with alprazolam (8) Pulmonary edema: Code(s): J81.1 - Chronic pulmonary edema Status: Acute Assessment and Plan: Noted in chest x-ray Lasix was given Echo with ejection fraction lowered to 20-25% cardiology note noted ? LifeVest at discharge Planned for Entresto after lisinopril washout attempt as outpatient basis Additional Plan DVT prophylaxis- resume Eliquis when appropriate PT OT Subjective Date/time seen: 12/11/20 16:27 Interval history: HPI: this is a 75-year-old female patient who has a past medical history of atrial fibrillation and coronary artery disease with a stent in her RCA. The patient was complaining of anterior chest pain radiating to the jaw bilateral arms and back since 11:00 p.m. last night. Patient stated that her pain is worse with a deep breath and with movement. She has no fever chills or cough. No hemoptysis. Patient thought that she was having problems with her acid reflux and took medicine for stomach without any released. Her pain was sharp and const
[2020-12-11 17:44] LABS: Glucose Point of Care 189 mg/dl (65-105)
[2020-12-11 21:46] LABS: Glucose Point of Care 189 mg/dl (65-105)
[2020-12-12] VITALS (18 sets, daily range): BP systolic 103–137; BP diastolic 49–67; PULSE 77–106; RESP 20–22; TEMP 36.3–37; O2SAT 95–99
--- NOTE | 2020-12-12 01:06 | PC.NURSE ---
Daylight Savings Time For Daylight Savings Time Ending in the Fall - Clocks are moved back. For Daylight Savings Time Beginning in the Spring - Clocks are moved ahead. For [facility], the time of change occurs at 0200 hrs. Time is taken from the patient observer. This entry on the patient's chart recognizes the change in time reflected during documentation. Example: 2 entries for vital signs may be charted for 0200 hrs.
[2020-12-12] MEDS: ALPRAZolam (*CRX) 0.25 MG TABLET PO ×2 (02:42→20:41)
[2020-12-12] MEDS: LEVOTHYROXINE SODIUM 75 MCG TABLET PO (05:40)
[2020-12-12 06:32] LABS: Basophils Percent Auto 0.5 % (0.2-1.2); Eosinophils Absolute Auto 0.1 K/mm3 (0-0.3); Eosinophils Percent Auto 1.3 % (0-4.4); Hematocrit 35.1 % (37.0-47.0); Hemoglobin 12.1 g/dL (12.0-15.0); Immature Granulocyte Absolute 0.03 K/mm3 (0.00-0.031); Immature Granulocyte Percent A 0.4 % (0-0.5); Lymphocytes Absolute Auto 1.46 K/mm3 (0.9-3.2); Lymphocytes Percent Auto 17.4 % (18.3-44.2); Mean Corpuscular HGB Conc 34.5 g/dl (32-36); Mean Corpuscular Hemoglobin 31.8 pg (26-34); Mean Corpuscular Volume 92.4 fl (80-100); Mean Platelet Volume 10.5 fl (7.4-10.4); Monocytes Absolute Auto 0.7 K/mm3 (0.1-0.6); Neutrophils Absolute Auto 6.1 K/mm3 (1.3-6.7); Neutrophils Percent Auto 72.4 % (45.5-73.1); Platelet Count Result 214 k/mm3 (150-375); Red Cell Distribution Width 12.5 % (11.5-14.5); White Blood Count 8.4 K/mm3 (4.5-10.0)
[2020-12-12 06:43] LABS: Alanine Aminotransferase 46 U/L (4-35); Albumin Level 3.7 g/dL (3.5-5.1); Alkaline Phosphatase 67 U/L (38-126); Anion Gap 5 mmol/L (8-16); Aspartate Amino Transferase 80 U/L (14-36); Bilirubin,Total 0.9 mg/dL (0.2-1.3); Blood Urea Nitrogen 25 mg/dL (7-17); Calcium 8.5 mg/dL (8.4-10.2); Carbon Dioxide 32 mmol/L (22-30); Chloride 96 mmol/L (98-107); Estimated CRCL calculation 50 ml/min; Estimated Glomerular Filt Rate 54; Glucose 207 mg/dL (65-110); Magnesium 2.1 mg/dL (1.6-2.3); Potassium 3.6 mmol/L (3.4-5.0); Sodium 133 mmol/L (137-145)
--- NOTE | 2020-12-12 08:41 | PM.PNCARD ---
Progress Note: A&P Assessment and Plan (1) ST elevation [place] (STEMI): Code(s): I21.3 - ST elevation (STEMI) myocardial infarction of unspecified site Status: Acute Assessment and Plan: Patient presents with unstable angina initial EKG with RBBB without acute ST elevation changes with elevated Trop I consistent with NSTEMI later developing into anterior STEMI by EKG and progression of sxs. Status post emergent coronary angiography with large clot burden proximal LAD outside of culprit lesion status post successful stent implantation with 3.25 x 18 mm Xience drug-eluting stent without complication. Patient feeling very well, no further anginal symptoms. Patient will require triple therapy with aspirin 81 mg daily, Brilinta 90 mg twice daily and re-initiation of Eliquis 5 mg twice daily. Patient advised she is at high risk for bleeding complication. Plan would be to continue triple therapy for 1 month then discontinue aspirin. Plan to resume Eliquis Sunday. This may discharge home at the earliest tomorrow afternoon provided no significant ventricular arrhythmias, patient without recurrent anginal symptoms. Repeat 12 lead EKG. (2) Ischemic cardiomyopathy: Code(s): I25.5 - Ischemic cardiomyopathy Status: Acute Assessment and Plan: Echo personally reviewed and discussed with the patient. Patient with severe ischemic cardiomyopathy EF 20-25% is akinesis of the apical segments. Discussed life vest or potential prevention of sudden cardiac secondary to ventricular tachycardia and or ventricular fibrillation due to severe LV systolic dysfunction ejection fraction 20-25% by echocardiogram. Patient verbalized understanding and is in agreement. Life Vest order will be placed in should be applied prior to discharge. Continue current medical therapy. Risks, benefits, alternatives discussed as well in detail with regards to future plans for ICD which she qualifies. Repeat echocardiogram as an outpatient. All questions answered to her satisfaction. Patient stable from cardiac perspective for discharge home later today after constipation resolved and LifeVest fitted. (3) CAD (coronary artery disease): Code(s): I25.10 - Atherosclerotic heart disease of [place] coronary artery without angina pectoris Status: Acute Assessment and Plan: As above. Prior history of RCA stent 2.5 x 12 mm drug-eluting to RCA 2010. Continue aggressive medical therapy. (4) Hypertension associated with type 2 diabetes mellitus: Code(s): E11.59 - Type 2 diabetes mellitus with other circulatory complications; I15.2 - Hypertension secondary to endocrine disorders Status: Acute Assessment and Plan: Relatively hypotensive this morning. If persists reduce lisinopril to 20 mg daily. Continue medical therapy. (5) Hyperlipidemia associated with type 2 diabetes mellitus: Code(s): E11.69 - Type 2 diabetes mellitus with other specified complication; E78.5 - Hyperlipidemia, unspecified Status: Acute Assessment and Plan: Continue simvastatin. Goal LDL less than 70, controlled at 53. Continue present regimen. (6) Chronic anticoagulation: Code(s): Z79.01 - correction (current) use of anticoagulants Status: Acute Assessment and Plan: Hold Eliquis for now. Will resume post cardiac catheterization when appropriate tomorrow morning. Follow H&H, BMP. (7) History of atrial fibrillation: Code(s): Z86.79 - Personal history of other diseases of the circulatory system Status: Acute Assessment and Plan: Maintaining sinus rhythm on sotalol. Monitor 12 EKG, QT interval and renal function. Stable thus far. Continue current therapy. Additional Plan - continue aspirin and Brilinta - aggressive risk factor modification for CAD Subjective Date/time seen: Date of service: 12/12/20 08:41 Follow-up status post anterior STEMI Patient denies shortness of
[2020-12-12 08:55] LABS: Glucose Point of Care 181 mg/dl (65-105)
[2020-12-12] MEDS: polyethylene glycoL 3350 17 GM POWD.PACK PO (09:32)
[2020-12-12] MEDS: DOCUSATE SODIUM 100 MG CAPSULE PO ×2 (09:32→20:39)
[2020-12-12] MEDS: MONTELUKAST SODIUM 10 MG TABLET PO (09:32)
[2020-12-12] MEDS: APIXABAN 5 MG TABLET PO ×2 (09:32→20:39)
[2020-12-12] MEDS: lisinopriL 20 MG TABLET 40 MG PO (09:32)
[2020-12-12] MEDS: ASPIRIN 81 MG CHEWABLE TABLET PO (09:33)
[2020-12-12] MEDS: TICAGRELOR 90 MG TABLET PO ×2 (09:33→20:39)
[2020-12-12] MEDS: SOTALOL HCL 80 MG TABLET PO ×2 (09:33→20:39)
[2020-12-12] MEDS: INSULIN GLARGINE (*BKC) 100 UNITS/ML 15 UNITS SUB-Q (09:33)
[2020-12-12] MEDS: SIMVASTATIN 20 MG TABLET PO (09:33)
[2020-12-12 12:33] LABS: Glucose Point of Care 354 mg/dl (65-105)
[2020-12-12] MEDS: INSULIN ASPART (*BKC) 100 UNITS/ML SUB-Q (13:25)
--- NOTE | 2020-12-12 14:54 | PM.DS ---
DS: Admitting Diagnosis Discharge Date 12/12/2020 Admitting Diagnosis Chest pain DS: Discharge Diagnosis Discharge Diagnosis (1) ST elevation [place] (STEMI): Code(s): I21.3 - ST elevation (STEMI) myocardial infarction of unspecified site Status: Acute Assessment and Plan: The patient was taken to the cardiac catheterization lab on 12/09/2020 shows Findings:: 1- left coronary artery is a large artery that divides into large LAD, large circumflex artery. Left main is Free of disease. 2- left anterior descending artery is a large artery that runs and wraps around the apex. There is a large clot hanging at the proximal LAD with JAVID flow 2. At the very proximal portion of the LAD there is a large diagonal branch that looks unremarkable. 3- leftcircumflex artery is a large artery And has proximal 30% at then small OM1 branch looks unremarkable. Large om 2 branch distally has ostial 70%. 4- right coronary artery is Totally occluded proximally 5- LVEDP was 22 mm Hgand no gradient across aortic valve. 6- opening arterial pressure was 160/80and closing pressure was 130/70 7- right femoral artery angiogram shows no significant disease in the right common femoral artery. Conclusion:: - successful stenting of proximal LAD culprit lesion for STEMI. - chronic total occlusion of right coronary artery with [id number] collaterals She will be on aspirin and Brilinta along with Eliquis triple therapy for 1 month then will stop her aspirin following that. She will continue to follow-up with cardiology as outpatient basis (2) DM2 (diabetes mellitus, type 2): Code(s): E11.9 - Type 2 diabetes mellitus without complications Status: Acute Assessment and Plan: Accu-Cheks with sliding scale insulin. A1c 7.0. She is on sulfonylurea at home Will benefit from switching this to SGLT2 inhibitors due to her underlying cardiac disease and recent STEMI Discussed status with the patient will stop glimepiride and switch over to Jardiance. If there is coverage issue for Jardiance she will speak with her primary care physician advised her to follow-up with him in 1 week (3) COPD (chronic obstructive pulmonary disease): Code(s): J44.9 - Chronic obstructive pulmonary disease, unspecified Status: Chronic Assessment and Plan: Continue with Singulair and inhalers. (4) Hypothyroidism: Code(s): E03.9 - Hypothyroidism, unspecified Status: Chronic Assessment and Plan: TSH normal, continue levothyroxine. (5) History of atrial fibrillation: Code(s): Z86.79 - Personal history of other diseases of the circulatory system Status: Acute Assessment and Plan: Eliquis is currently on hold. The patient has been controlled with sotalol. Resume Eliquis at discharge (6) Hypertension associated with type 2 diabetes mellitus: Code(s): E11.59 - Type 2 diabetes mellitus with other circulatory complications; I15.2 - Hypertension secondary to endocrine disorders Status: Acute Assessment and Plan: Continue with lisinopril when able. P.r.n. hydralazine (7) Anxiety: Code(s): F41.9 - Anxiety disorder, unspecified Status: Chronic Assessment and Plan: Continue with alprazolam (8) Pulmonary edema: Code(s): J81.1 - Chronic pulmonary edema Status: Acute Assessment and Plan: Noted in chest x-ray Lasix was given Echo with ejection fraction lowered to 20-25% cardiology note noted Planned for Entresto after lisinopril washout attempt as outpatient basis (9) Ischemic cardiomyopathy: Code(s): I25.5 - Ischemic cardiomyopathy Status: Acute Assessment and Plan: Discussed life vest with the patient and patient agreeable. She will be re-evaluated with the repeat echocardiogram as an outpatient basis. DS: Summary Hospital Course Hospital Course: See above Time Spent with Patient Time attestation: Total time spent providing and/
[2020-12-12 17:44] LABS: Glucose Point of Care 177 mg/dl (65-105)
[2020-12-12 20:01] LABS: Glucose Point of Care 151 mg/dl (65-105)
[2020-12-13] VITALS (18 sets, daily range): BP systolic 109–129; BP diastolic 44–70; PULSE 77–105; RESP 20–22; TEMP 35.7–37.1; O2SAT 94–99
[2020-12-13] MEDS: LEVOTHYROXINE SODIUM 75 MCG TABLET PO (06:15)
[2020-12-13 07:21] LABS: Glucose Point of Care 180 mg/dl (65-105)
[2020-12-13] MEDS: polyethylene glycoL 3350 17 GM POWD.PACK PO (08:10)
[2020-12-13] MEDS: ASPIRIN 81 MG CHEWABLE TABLET PO (08:10)
[2020-12-13] MEDS: DOCUSATE SODIUM 100 MG CAPSULE PO ×2 (08:10→21:15)
[2020-12-13] MEDS: SOTALOL HCL 80 MG TABLET PO ×2 (08:10→21:15)
[2020-12-13] MEDS: APIXABAN 5 MG TABLET PO ×2 (08:10→21:15)
[2020-12-13] MEDS: TICAGRELOR 90 MG TABLET PO ×2 (08:10→21:15)
[2020-12-13] MEDS: MONTELUKAST SODIUM 10 MG TABLET PO (08:10)
[2020-12-13] MEDS: lisinopriL 20 MG TABLET 40 MG PO (08:11)
[2020-12-13] MEDS: SIMVASTATIN 20 MG TABLET PO (08:11)
[2020-12-13] MEDS: INSULIN GLARGINE (*BKC) 100 UNITS/ML 15 UNITS SUB-Q (08:11)
--- NOTE | 2020-12-13 10:37 | PM.PNCARD ---
Progress Note: A&P Assessment and Plan (1) ST elevation [place] (STEMI): Code(s): I21.3 - ST elevation (STEMI) myocardial infarction of unspecified site Status: Acute Assessment and Plan: Patient presents with unstable angina initial EKG with RBBB without acute ST elevation changes with elevated Trop I consistent with NSTEMI later developing into anterior STEMI by EKG and progression of sxs. Status post emergent coronary angiography with large clot burden proximal LAD outside of culprit lesion status post successful stent implantation with 3.25 x 18 mm Xience drug-eluting stent without complication. Patient feeling very well, no further anginal symptoms. Patient will require triple therapy with aspirin 81 mg daily, Brilinta 90 mg twice daily and re-initiation of Eliquis 5 mg twice daily. Patient aware she is at high risk for bleeding complication. Plan would be to continue triple therapy for 1 month then discontinue aspirin. Eliquis has been resumed. Appropriate for discharge home today provided no further Afib RVR or other arrhythmias. (2) Ischemic cardiomyopathy: Code(s): I25.5 - Ischemic cardiomyopathy Status: Acute Assessment and Plan: Echo personally reviewed and discussed with the patient. Patient with severe ischemic cardiomyopathy EF 20-25% is akinesis of the apical segments. Discussed life vest or potential prevention of sudden cardiac secondary to ventricular tachycardia and or ventricular fibrillation due to severe LV systolic dysfunction ejection fraction 20-25% by echocardiogram. Patient verbalized understanding and is in agreement. Awaiting LifeVest fitting prior to discharge. Continue current medical therapy. Risks, benefits, alternatives discussed as well in detail with regards to future plans for ICD if she qualifies. Repeat echocardiogram as an outpatient in ~3 months. All questions answered to her satisfaction. (3) CAD (coronary artery disease): Code(s): I25.10 - Atherosclerotic heart disease of [place] coronary artery without angina pectoris Status: Acute Assessment and Plan: As above. Prior history of RCA stent 2.5 x 12 mm drug-eluting to RCA 2010. Continue aggressive medical therapy. (4) Hypertension associated with type 2 diabetes mellitus: Code(s): E11.59 - Type 2 diabetes mellitus with other circulatory complications; I15.2 - Hypertension secondary to endocrine disorders Status: Acute Assessment and Plan: Blood pressure reasonable this morning - had been relatively hypotensive at times over the weekend. Continue medical therapy. (5) Hyperlipidemia associated with type 2 diabetes mellitus: Code(s): E11.69 - Type 2 diabetes mellitus with other specified complication; E78.5 - Hyperlipidemia, unspecified Status: Acute Assessment and Plan: Continue simvastatin. Goal LDL less than 70, controlled at 53. Continue present regimen. (6) Chronic anticoagulation: Code(s): Z79.01 - senior living (current) use of anticoagulants Status: Acute Assessment and Plan: Eliquis has been resumed. (7) History of atrial fibrillation: Code(s): Z86.79 - Personal history of other diseases of the circulatory system Status: Acute Assessment and Plan: Had been Maintaining sinus rhythm on sotalol, had some Afib RVR this morning but converted back to sinus rhythm without any intervention. Maintaining SR now. Continue current therapy. If further episodes of atrial fibrillation would recommend increasing sotalol dose. Subjective Date/time seen: 12/13/20 10:37 Cardiology follow up Date of service 12/13/20: Complaining of some constipation this morning but is feeling well otherwise. She denies chest pain, shortness of breath, palpitations. She did have some Afib with RVR in the 140's this morning but has since converted to sinus rhythm which she is maintaining. Awaiting LifeVest fitting. Review of
[2020-12-13 12:17] LABS: Glucose Point of Care 285 mg/dl (65-105)
[2020-12-13] MEDS: INSULIN ASPART (*BKC) 100 UNITS/ML SUB-Q ×2 (12:45→16:56)
--- NOTE | 2020-12-13 15:15 | PM.IMPN ---
Progress Note: A&P Assessment and Plan (1) ST elevation [place] (STEMI): Code(s): I21.3 - ST elevation (STEMI) myocardial infarction of unspecified site Status: Acute Assessment and Plan: The patient was taken to the cardiac catheterization lab on 12/09/2020 shows Findings:: 1- left coronary artery is a large artery that divides into large LAD, large circumflex artery. Left main is Free of disease. 2- left anterior descending artery is a large artery that runs and wraps around the apex. There is a large clot hanging at the proximal LAD with JAVID flow 2. At the very proximal portion of the LAD there is a large diagonal branch that looks unremarkable. 3- leftcircumflex artery is a large artery And has proximal 30% at then small OM1 branch looks unremarkable. Large om 2 branch distally has ostial 70%. 4- right coronary artery is Totally occluded proximally 5- LVEDP was 22 mm Hgand no gradient across aortic valve. 6- opening arterial pressure was 160/80and closing pressure was 130/70 7- right femoral artery angiogram shows no significant disease in the right common femoral artery. Conclusion:: - successful stenting of proximal LAD culprit lesion for STEMI. - chronic total occlusion of right coronary artery with [id number] collaterals She will be on aspirin and Brilinta along with Eliquis triple therapy for 1 month then will stop her aspirin following that. She will continue to follow-up with cardiology as outpatient basis (2) DM2 (diabetes mellitus, type 2): Code(s): E11.9 - Type 2 diabetes mellitus without complications Status: Acute Assessment and Plan: Accu-Cheks with sliding scale insulin. A1c 7.0. She is on sulfonylurea at home Will benefit from switching this to SGLT2 inhibitors due to her underlying cardiac disease and recent STEMI Discussed status with the patient will stop glimepiride and switch over to Jardiance. If there is coverage issue for Jardiance she will speak with her primary care physician advised her to follow-up with him in 1 week (3) COPD (chronic obstructive pulmonary disease): Code(s): J44.9 - Chronic obstructive pulmonary disease, unspecified Status: Chronic Assessment and Plan: Continue with Singulair and inhalers. (4) Hypothyroidism: Code(s): E03.9 - Hypothyroidism, unspecified Status: Chronic Assessment and Plan: TSH normal, continue levothyroxine. (5) History of atrial fibrillation: Code(s): Z86.79 - Personal history of other diseases of the circulatory system Status: Acute Assessment and Plan: Eliquis is currently on hold. The patient has been controlled with sotalol. Resume Eliquis at discharge (6) Hypertension associated with type 2 diabetes mellitus: Code(s): E11.59 - Type 2 diabetes mellitus with other circulatory complications; I15.2 - Hypertension secondary to endocrine disorders Status: Acute Assessment and Plan: Continue with lisinopril when able. P.r.n. hydralazine (7) Anxiety: Code(s): F41.9 - Anxiety disorder, unspecified Status: Chronic Assessment and Plan: Continue with alprazolam (8) Pulmonary edema: Code(s): J81.1 - Chronic pulmonary edema Status: Acute Assessment and Plan: Noted in chest x-ray Lasix was given Echo with ejection fraction lowered to 20-25% cardiology note noted Planned for Entresto after lisinopril washout attempt as outpatient basis (9) Ischemic cardiomyopathy: Code(s): I25.5 - Ischemic cardiomyopathy Status: Acute Assessment and Plan: Discussed life vest with the patient and patient agreeable. She will be re-evaluated with the repeat echocardiogram as an outpatient basis. Additional Plan DVT prophylaxis- resume Eliquis when appropriate PT OT Subjective Date/time seen: 12/12/2020 this is a progress note for date 12/12/2020 Interval history: HPI: this is a 75-year-old female patient w
[2020-12-13 16:34] LABS: Glucose Point of Care 277 mg/dl (65-105)
[2020-12-13] MEDS: BISACODYL 10 MG SUPPOSITORY RECTAL (17:11)
[2020-12-13 19:56] LABS: Glucose Point of Care 131 mg/dl (65-105)
[2020-12-13] MEDS: ALPRAZolam (*CRX) 0.25 MG TABLET PO (21:17)
[2020-12-14] VITALS (10 sets, daily range): BP systolic 111–142; BP diastolic 56–77; PULSE 62–91; RESP 16–20; TEMP 36–36.3; O2SAT 97–98
[2020-12-14] MEDS: LEVOTHYROXINE SODIUM 75 MCG TABLET PO (06:05)
[2020-12-14 08:31] LABS: Glucose Point of Care 182 mg/dl (65-105)
[2020-12-14] MEDS: ASPIRIN 81 MG CHEWABLE TABLET PO (08:39)
[2020-12-14] MEDS: SIMVASTATIN 20 MG TABLET PO (08:39)
[2020-12-14] MEDS: APIXABAN 5 MG TABLET PO (08:39)
[2020-12-14] MEDS: TICAGRELOR 90 MG TABLET PO (08:40)
[2020-12-14] MEDS: DOCUSATE SODIUM 100 MG CAPSULE PO (08:40)
[2020-12-14] MEDS: lisinopriL 20 MG TABLET 40 MG PO (08:40)
[2020-12-14] MEDS: MONTELUKAST SODIUM 10 MG TABLET PO (08:40)
[2020-12-14] MEDS: SOTALOL HCL 80 MG TABLET PO (08:40)
[2020-12-14] MEDS: polyethylene glycoL 3350 17 GM POWD.PACK PO (08:40)
[2020-12-14] MEDS: INSULIN GLARGINE (*BKC) 100 UNITS/ML 15 UNITS SUB-Q (08:43)
--- NOTE | 2020-12-14 12:27 | PM.DS ---
DS: Admitting Diagnosis Discharge Date 12/15/2020 Admitting Diagnosis Chest pain DS: Discharge Diagnosis Discharge Diagnosis (1) ST elevation [place] (STEMI): Code(s): I21.3 - ST elevation (STEMI) myocardial infarction of unspecified site Status: Acute Assessment and Plan: The patient was taken to the cardiac catheterization lab on 12/09/2020 Conclusion- successful stenting of proximal LAD culprit lesion for STEMI. - chronic total occlusion of right coronary artery with [id number] collaterals She will be on aspirin and Brilinta along with Eliquis triple therapy for 1 month then will stop her aspirin. She will continue to follow-up with cardiology as outpatient basis (2) DM2 (diabetes mellitus, type 2): Code(s): E11.9 - Type 2 diabetes mellitus without complications Status: Acute Assessment and Plan: Accu-Cheks with sliding scale insulin. A1c 7.0. She is on sulfonylurea at home Will benefit from switching this to SGLT2 inhibitors due to her underlying cardiac disease and recent STEMI Discussed status with the patient will stop glimepiride and switch over to Jardiance. Medication swtched in the hospital. (3) COPD (chronic obstructive pulmonary disease): Code(s): J44.9 - Chronic obstructive pulmonary disease, unspecified Status: Chronic Assessment and Plan: Continue with Singulair and inhalers. (4) Hypothyroidism: Code(s): E03.9 - Hypothyroidism, unspecified Status: Chronic Assessment and Plan: TSH normal, continue levothyroxine. (5) History of atrial fibrillation: Code(s): Z86.79 - Personal history of other diseases of the circulatory system Status: Acute Assessment and Plan: Eliquis is currently on hold. The patient has been controlled with sotalol. Resume Eliquis at discharge (6) Hypertension associated with type 2 diabetes mellitus: Code(s): E11.59 - Type 2 diabetes mellitus with other circulatory complications; I15.2 - Hypertension secondary to endocrine disorders Status: Acute Assessment and Plan: Continue with lisinopril when able. P.r.n. hydralazine (7) Anxiety: Code(s): F41.9 - Anxiety disorder, unspecified Status: Chronic Assessment and Plan: Continue with alprazolam (8) Pulmonary edema: Code(s): J81.1 - Chronic pulmonary edema Status: Acute Assessment and Plan: Noted in chest x-ray Lasix was given Echo with ejection fraction lowered to 20-25% cardiology note noted Planned for Entresto after lisinopril washout attempt as outpatient basis (9) Ischemic cardiomyopathy: Code(s): I25.5 - Ischemic cardiomyopathy Status: Acute Assessment and Plan: Discussed life vest with the patient and patient agreeable. She will be re-evaluated with the repeat echocardiogram as an outpatient basis. DS: Summary Hospital Course Hospital Course: 75-year-old female patient who has a past medical history of atrial fibrillation and coronary artery disease with a stent in her RCA. The patient was complaining of anterior chest pain radiating to the jaw bilateral arms and back since 11:00 p.m. last night. Patient stated that her pain is worse with a deep breath and with movement. She has no fever chills or cough. No hemoptysis. Patient thought that she was having problems with her acid reflux and took medicine for stomach without any released. Her pain was sharp and constant. First EKG was read as atrial ventricular premature complexes low QRS voltage right bundle branch block. The neck is EKG shows a STEMI in V1 V2 and V3. The patient was taken to cardiac cath lab technologist and received another stent. Please see Cardiology procedure note. The patient has been nauseated since she came back from the cardiac catheterization lab. Her Eliquis was placed on hold and will resume post cardiac catheterization when appropriate. Her troponin was noted to be 0.110. Blood sugar 218. A1
[2020-12-14] MEDS: INSULIN ASPART (*BKC) 100 UNITS/ML SUB-Q (12:33)
[2020-12-14 12:58] LABS: Glucose Point of Care 275 mg/dl (65-105)
--- NOTE | 2020-12-14 13:47 | PM.PNCARD ---
Progress Note: A&P Assessment and Plan (1) ST elevation [place] (STEMI): Code(s): I21.3 - ST elevation (STEMI) myocardial infarction of unspecified site Status: Acute Assessment and Plan: Patient presents with unstable angina initial EKG with RBBB without acute ST elevation changes with elevated Trop I consistent with NSTEMI later developing into anterior STEMI by EKG and progression of sxs. Status post emergent coronary angiography with large clot burden proximal LAD outside of culprit lesion status post successful stent implantation with 3.25 x 18 mm Xience drug-eluting stent without complication. Patient feeling very well, no further anginal symptoms. Patient will require triple therapy with aspirin 81 mg daily, Brilinta 90 mg twice daily and re-initiation of Eliquis 5 mg twice daily. Patient aware she is at high risk for bleeding complication. Plan would be to continue triple therapy for 1 month then discontinue aspirin. Eliquis has been resumed. Appropriate for discharge home today provided no further Afib RVR or other arrhythmias. (2) Ischemic cardiomyopathy: Code(s): I25.5 - Ischemic cardiomyopathy Status: Acute Assessment and Plan: Echo personally reviewed and discussed with the patient. Patient with severe ischemic cardiomyopathy EF 20-25% is akinesis of the apical segments. Discussed life vest or potential prevention of sudden cardiac secondary to ventricular tachycardia and or ventricular fibrillation due to severe LV systolic dysfunction ejection fraction 20-25% by echocardiogram. Patient verbalized understanding and is in agreement. She had been fitted with her LifeVest. Continue current medical therapy. Risks, benefits, alternatives discussed as well in detail with regards to future plans for ICD if she qualifies. Repeat echocardiogram as an outpatient in ~3 months. All questions answered to her satisfaction. (3) CAD (coronary artery disease): Code(s): I25.10 - Atherosclerotic heart disease of [place] coronary artery without angina pectoris Status: Acute Assessment and Plan: As above. Prior history of RCA stent 2.5 x 12 mm drug-eluting to RCA 2010. Continue aggressive medical therapy. (4) Hypertension associated with type 2 diabetes mellitus: Code(s): E11.59 - Type 2 diabetes mellitus with other circulatory complications; I15.2 - Hypertension secondary to endocrine disorders Status: Acute Assessment and Plan: Blood pressure reasonable over past 24 hours - had been relatively hypotensive at times over the weekend. Continue current medical therapy. (5) Hyperlipidemia associated with type 2 diabetes mellitus: Code(s): E11.69 - Type 2 diabetes mellitus with other specified complication; E78.5 - Hyperlipidemia, unspecified Status: Acute Assessment and Plan: Continue simvastatin. Goal LDL less than 70, controlled at 53. Continue present regimen. (6) Chronic anticoagulation: Code(s): Z79.01 - residential (current) use of anticoagulants Status: Acute Assessment and Plan: Eliquis has been resumed. (7) History of atrial fibrillation: Code(s): Z86.79 - Personal history of other diseases of the circulatory system Status: Acute Assessment and Plan: Had been Maintaining sinus rhythm on sotalol, had some Afib RVR yesterday morning but converted back to sinus rhythm without any intervention. Maintaining SR now with some PAC's, PVC's. Continue current therapy. Subjective Date/time seen: 12/14/20 13:47 Cardiology follow up for STEMI Date of service 12/14/2020: Patient still complaining of constipation today but otherwise is feeling well. No chest pain, shortness of breath, swelling, palpitations. She has been fitted for her LifeVest. Stable for discharge today. Review of Systems Review of Systems: All systems reviewed & are unremarkable except as noted in HPI and below Constitutional:
--- NOTE | 2020-12-25 08:21 | PM.IMPN ---
Progress Note: A&P Assessment and Plan (1) ST elevation NM (STEMI): Code(s): I21.3 - ST elevation (STEMI) myocardial infarction of unspecified site Status: Acute Assessment and Plan: The patient was taken to the cardiac catheterization lab on 12/09/2020 shows Findings:: 1- left coronary artery is a large artery that divides into large LAD, large circumflex artery. Left main is Free of disease. 2- left anterior descending artery is a large artery that runs and wraps around the apex. There is a large clot hanging at the proximal LAD with JAVID flow 2. At the very proximal portion of the LAD there is a large diagonal branch that looks unremarkable. 3- leftcircumflex artery is a large artery And has proximal 30% at then small OM1 branch looks unremarkable. Large om 2 branch distally has ostial 70%. 4- right coronary artery is Totally occluded proximally 5- LVEDP was 22 mm Hgand no gradient across aortic valve. 6- opening arterial pressure was 160/80and closing pressure was 130/70 7- right femoral artery angiogram shows no significant disease in the right common femoral artery. Conclusion:: - successful stenting of proximal LAD culprit lesion for STEMI. - chronic total occlusion of right coronary artery with [id number] collaterals She will be on aspirin and Brilinta along with Eliquis triple therapy for 1 month then will stop her aspirin following that. She will continue to follow-up with cardiology as outpatient basis (2) DM2 (diabetes mellitus, type 2): Code(s): E11.9 - Type 2 diabetes mellitus without complications Status: Acute Assessment and Plan: Accu-Cheks with sliding scale insulin. A1c 7.0. She is on sulfonylurea at home Will benefit from switching this to SGLT2 inhibitors due to her underlying cardiac disease and recent STEMI Discussed status with the patient will stop glimepiride and switch over to Jardiance. If there is coverage issue for Jardiance she will speak with her primary care physician advised her to follow-up with him in 1 week (3) COPD (chronic obstructive pulmonary disease): Code(s): J44.9 - Chronic obstructive pulmonary disease, unspecified Status: Chronic Assessment and Plan: Continue with Singulair and inhalers. (4) Hypothyroidism: Code(s): E03.9 - Hypothyroidism, unspecified Status: Chronic Assessment and Plan: TSH normal, continue levothyroxine. (5) History of atrial fibrillation: Code(s): Z86.79 - Personal history of other diseases of the circulatory system Status: Acute Assessment and Plan: Eliquis is currently on hold. The patient has been controlled with sotalol. Resume Eliquis at discharge intermitenlty going into afib (6) Hypertension associated with type 2 diabetes mellitus: Code(s): E11.59 - Type 2 diabetes mellitus with other circulatory complications; I15.2 - Hypertension secondary to endocrine disorders Status: Acute Assessment and Plan: Continue with lisinopril when able. P.r.n. hydralazine (7) Anxiety: Code(s): F41.9 - Anxiety disorder, unspecified Status: Chronic Assessment and Plan: Continue with alprazolam (8) Pulmonary edema: Code(s): J81.1 - Chronic pulmonary edema Status: Acute Assessment and Plan: Noted in chest x-ray Lasix was given Echo with ejection fraction lowered to 20-25% cardiology note noted Planned for Entresto after lisinopril washout attempt as outpatient basis (9) Ischemic cardiomyopathy: Code(s): I25.5 - Ischemic cardiomyopathy Status: Acute Assessment and Plan: Discussed life vest with the patient and patient agreeable. She will be re-evaluated with the repeat echocardiogram as an outpatient basis. Additional Plan DVT prophylaxis- resume Eliquis when appropriate PT OT Subjective Date/time seen: 12/13/20 08:22 LATE NOTE patient seen and examined on 12/13/2020 Interval history: ISIAH
== END 2020-12-14 15:55 | disposition home or self-care (01) | DRG 247 ==
LOC: ANHED 06:54 → ANHIMU 08:10 → ANHICU 13:10 → ANHIMU 12-12 14:53 → ANHICU 12-15 14:49 → ANHIMU 12-15 14:49
PROVIDERS: Internal Medicine Cardiovascular Disease; Nurse Practitioner; Admitting Provider Hospitalist; Emergency Provider Emergency Medicine; PCP Nurse Practitioner Adult Health; Visit Provider Internal Medicine
PROC: 4A023N7 Measurement of Cardiac Sampling and Pressure, Left Heart, Percutaneous Approach (ICD-10-PCS; CPT 93452; principal; 2020-12-09 11:25)
PROC: 027034Z Dilation of Coronary Artery, One Artery with Drug-eluting Intraluminal Device, Percutaneous Approach (ICD-10-PCS; 2020-12-09 11:25)
PROC: 027034Z Dilation of Coronary Artery, One Artery with Drug-eluting Intraluminal Device, Percutaneous Approach (ICD-10-PCS; 2020-12-09 11:25)
DX: I21.3 ST elevation (STEMI) myocardial infarction of unspecified site (principal); J81.1 Chronic pulmonary edema; I48.91 Unspecified atrial fibrillation; I25.10 Atherosclerotic heart disease of native coronary artery without angina pectoris; Z95.5 Presence of coronary angioplasty implant and graft; Z79.01 Long term (current) use of anticoagulants; Z79.4 Long term (current) use of insulin; F41.9 Anxiety disorder, unspecified; J44.9 Chronic obstructive pulmonary disease, unspecified; E11.9 Type 2 diabetes mellitus without complications; H40.9 Unspecified glaucoma; E78.5 Hyperlipidemia, unspecified; E03.9 Hypothyroidism, unspecified; I45.10 Unspecified right bundle-branch block; I49.3 Ventricular premature depolarization; I11.0 Hypertensive heart disease with heart failure; I50.9 Heart failure, unspecified; G89.29 Other chronic pain; M25.562 Pain in left knee; M25.561 Pain in right knee; Z88.2 Allergy status to sulfonamides; E11.59 Type 2 diabetes mellitus with other circulatory complications; I25.5 Ischemic cardiomyopathy; Z86.79 Personal history of other diseases of the circulatory system
CPT/HCPCS: 36415; 71045; 71275; 74018; 74174; 80048; 80053; 80061; 82948; 83036; 83615; 83735; 84443; 84484; 85025; 85610; 85730; 93005; 93306; 93458; 96361; 96374; 96375; 97161; 97165; 99285; A9270; C1725; C1760; C1769; C1874; C1887; C1894; C9606; G0269; G0378; J1644; J1815; J1940; J2270; J2405; J3010; J7030; Q9967

== ENCOUNTER 2021-04-13 15:00 | Outpatient (RCR) | payer MEDICARE, SELFPAY ==
[2021-01-14 16:00] VITALS: PULSE 59
[2021-01-14 16:02] VITALS: BP 92/56; PULSE 59; RESP 16; O2SAT 96
== END 2021-04-13 19:30 | disposition home or self-care (01) ==
LOC: ANHCPREHAB 15:00
PROVIDERS: Visit Provider Nurse Practitioner
DX: Z95.5 Presence of coronary angioplasty implant and graft (principal)
CPT/HCPCS: 93798

== ENCOUNTER 2021-05-20 14:53 | Outpatient (CLI) | payer MEDICARE, SELFPAY ==
[2021-05-20 16:20] LABS: Anion Gap 7 mmol/L (8-16); Blood Urea Nitrogen 55 mg/dL (7-17); Calcium 9.8 mg/dL (8.4-10.2); Carbon Dioxide 20 mmol/L (22-30); Chloride 111 mmol/L (98-107); Estimated Glomerular Filt Rate 26; Glucose 126 mg/dL (65-110); Sodium 138 mmol/L (137-145)
== END 2021-05-20 14:54 | disposition home or self-care (01) ==
LOC: ANHLAB 14:57
PROVIDERS: Visit Provider Internal Medicine Cardiovascular Disease
DX: N17.9 Acute kidney failure, unspecified (principal); E87.5 Hyperkalemia
CPT/HCPCS: 36415; 80048

== ENCOUNTER 2021-05-20 17:13 | Inpatient (IN) | payer MEDICARE, SELFPAY ==
[2021-05-20] VITALS (35 sets, daily range): BP systolic 110–153; BP diastolic 46–131; PULSE 61–80; RESP 14–26; TEMP 36.1–36.3; O2SAT 97–100; BMI 31.0
--- NOTE | ~2021-05-20 | CT_ITS ---
EXAMINATION: CT abdomen pelvis wo con DATE: 05/20/2021 18:05 INDICATION: Bilateral flank pain. Elevated potassium levels. Fatigue. TECHNIQUE: Computed tomography (CT) of the abdomen and pelvis was performed without intravenous contr ast. Automated exposure control and iterative reconstruction technique were employed. Exam dose: 534 .83 mGy-cm total exam DLP. COMPARISON: 12/2020 CTA chest abdomen pelvis FINDINGS: The lung bases are clear of infiltrate or consolidation. There is coronary artery atherosclerosis. Normal heart size. No pericardial or pleural effusion. Status post cholecystectomy. The liver, spleen, pancreas, adrenal glands and kidneys are unremarkable on this limited noncontrast examination. No bile duct or pancreatic duct dilatation. No urinary tract calculus or hydroureteronephrosis. The urinary bladder, uterus and adnexal areas are unremarkable. There is atherosclerotic calcification of the abdominal aorta and the origins of the renal arteries. No abdominal aortic aneurysm. No intraperitoneal or retroperitoneal or pelvic mass lesion or adenopat hy or ascites. There is diverticulosis of the left and right colon, most prominently noted in the sigmoid area. Ther e is no evidence of diverticulitis. Normal appendix. No bowel obstruction, bowel wall thickening, pneumatosis or intraperitoneal free air is detected. Very small fat-containing umbilical hernia. Degenerative spurring of the thoracic spine. Degenerative change at the apophyseal joints in the lower lumbar and lumbosacral area with associated grade 1 anterolisthesis at L4-5. No suspicious osteolytic or osteoblastic lesions. IMPRESSION: No urinary tract calculus or hydroureteronephrosis Normal appendix Diverticulosis of the colon; no evidence of diverticulitis Status post cholecystectomy Reviewed, dictated and finalized at [facility] Reviewed, dictated and finalized at [facility].
--- NOTE | ~2021-05-20 | XR_ITS ---
XR chest 1V portable DATE: 05/20/2021 17:49 INDICATION: Weakness TECHNIQUE: Portable upright AP chest on May 20, 2021 at 1745 hours COMPARISON: 12/10/2020 portable AP chest FINDINGS: Heart size appears within normal limits. No hilar or mediastinal enlargement. No pulmonary infiltrate or consolidation, pleural effusion or pulmonary vascular congestion or pneumothorax. Resolution of congestive changes and infiltrates since 12/10/2020. Diffuse osteopenia. There is dextro scoliosis and degenerative spurring of the thoracic spine. IMPRESSION: No active cardiopulmonary disease; resolution of congestive changes since 12/10/2020 Reviewed, dictated and finalized at [facility].
--- NOTE | 2021-05-20 17:38 | ECG_ITS ---
Measurements Intervals [place] Rate: 63 P: 75 RI: 189 QRS: -14 QRSD: 113 T: 16 QT: 399 QTc: 411 Interpretive Statements SINUS RHYTHM INDETERMINATE AXIS LOW QRS VOLTAGE IN PRECORDIAL LEADS [QRS DEFLECTION < 1.0 mV IN CHEST LEADS] RIGHT BUNDLE BRANCH BLOCK [120+ ms QRS DURATION, UPRIGHT V1, 40+ ms S IN I/aVL/V4/V5/V6] POSSIBLE ANTEROSEPTAL MYOCARDIAL INFARCTION , OF INDETERMINATE AGE [30 ms Q WAVE IN V1- V4] ABNORMAL ECG COMPARED TO ECG 12/11/2020 12:45:04 NO SIGNIFICANT CHANGES Electronically Signed On 05-21-2021 11:42:08 CDT by Obinna Perry M.D.
[2021-05-20 17:50] LABS: Basophils Percent Auto 0.8 % (0.2-1.2); Eosinophils Absolute Auto 0.1 K/mm3 (0-0.3); Eosinophils Percent Auto 1.2 % (0-4.4); Hematocrit 38.4 % (37.0-47.0); Hemoglobin 12.4 g/dL (12.0-15.0); Immature Granulocyte Absolute 0.01 K/mm3 (0.00-0.031); Immature Granulocyte Percent A 0.2 % (0-0.5); Lymphocytes Absolute Auto 0.91 K/mm3 (0.9-3.2); Lymphocytes Percent Auto 18.5 % (18.3-44.2); Mean Corpuscular HGB Conc 32.3 g/dl (32-36); Mean Corpuscular Hemoglobin 31.8 pg (26-34); Mean Corpuscular Volume 98.5 fl (80-100); Mean Platelet Volume 11.1 fl (7.4-10.4); Monocytes Absolute Auto 0.4 K/mm3 (0.1-0.6); Monocytes Percent Auto 8.7 % (2.6-8.5); Neutrophils Absolute Auto 3.5 K/mm3 (1.3-6.7); Neutrophils Percent Auto 70.6 % (45.5-73.1); Platelet Count Result 255 k/mm3 (150-375); Red Cell Distribution Width 13.8 % (11.5-14.5); White Blood Count 4.9 K/mm3 (4.5-10.0)
--- NOTE | 2021-05-20 17:57 | ED.RECABL ---
HPI - Recheck/Abnormal Lab/Rx General Chief Complaint: Recheck/Abnormal Lab/Rx Stated Complaint: high potassium Time Seen by Provider: 05/20/21 17:40 Source: patient Mode of arrival: ambulatory Limitations: no limitations History of Present Illness HPI narrative: This is a 75 year old female with history of CHF, SC s/p stent, and hypertension who presents for evaluation of an elevated potassium. Patient was evaluated by her shift stacker today. She states she has been having shortness of breath. Her shift stacker ordered labs because she states her potassium has been increasing over time. She was on a diuretic until today but she denies taking potassium supplementation. She is also complaining of pain to both kidneys for 2 weeks. This pain is constant unless she is laying in bed. She denies nausea, vomiting, diarrhea, abdominal pain, chest pain or fever. She has been urinating frequently due to diuretics but she denies dysuria. She has been taking amoxicillin for 5 days to treat her kidney pain . She denies worsening swelling. Related Data Home Medications Medication Instructions Recorded Confirmed Eliquis 5 mg PO BID 12/09/20 12/09/20 OneTouch Verio test strips 12/09/20 12/09/20 albuterol sulfate 2 inh INHALATION Q4H PRN 12/09/20 12/09/20 alprazolam 0.25 mg PO DAILY PRN 12/09/20 12/09/20 ergocalciferol (vitamin D2) 50,000 unit PO WEEKLY 12/09/20 12/09/20 levothyroxine 100 mcg PO DAILY 12/09/20 12/09/20 lisinopril 40 mg PO DAILY 12/09/20 12/09/20 montelukast 10 mg PO DAILY 12/09/20 12/09/20 simvastatin 20 mg PO DAILY 12/09/20 12/09/20 sotalol 80 mg PO Q12H 12/09/20 12/09/20 fexofenadine [Janee] 180 mg PO DAILY 01/14/21 01/14/21 fluticasone propionate [Flonase] INTRANASAL DAILY 01/14/21 nitroglycerin 0.4 mg SUBLINGUAL Q5-15M PRN 01/14/21 01/14/21 spironolactone 25 mg PO DAILY 01/14/21 01/14/21 Allergies Allergy/AdvReac Type Severity Reaction Status Date / Time sulfamethoxazole Allergy Unknown Hives Verified 12/09/20 06:13 Review of Systems Review of Systems: All systems reviewed & are unremarkable except as noted in HPI and below Constitutional: Constitutional: Denies chills, Reports fatigue and Denies fever(s) Cardiovascular: Cardiovascular: Denies chest pain Respiratory: Respiratory: Denies cough and Reports dyspnea Gastrointestinal: Gastrointestinal: Denies abdominal pain, Denies diarrhea, Denies nausea and Denies vomiting Genitourinary: Genitourinary: Reports flank pain Musculoskeletal: Musculoskeletal: Reports back pain [facility] Past Medical History Medical History Anxiety CAD (coronary artery disease) Chronic anticoagulation COPD (chronic obstructive pulmonary disease) DM2 (diabetes mellitus, type 2) Glaucoma History of atrial fibrillation Hyperlipidemia associated with type 2 diabetes mellitus Hypertension associated with type 2 diabetes mellitus Hypothyroidism Surgical History Surgical History H/O cataract extraction H/O heart artery stent Previous RCA and a stent today 12/09/2020 H/O partial thyroidectomy H/O right wrist surgery H/O tubal ligation Hx of cholecystectomy Family History Family History (Updated 01/14/21 @ 15:12 by Doreen Nova RN) Mother Cancer Father Pulmonary emboli Sibling CAD (coronary artery disease) of artery bypass graft Malignant melanoma Social History Social History Social History: The patient tells me that she never smoked but she had secondhand exposure through her ex- and other family members as well as her job who. No alcohol marijuana or illicit drugs. 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 She had 7 children but only 6 arrived. She is . She is does not have a durable power mainframe systems programmer for healthcare. Code status full code. Smoking status: N
[2021-05-20 18:00] LABS: INR 1.6; Prothrombin Time 18.3 Seconds (11.1-14.7)
[2021-05-20 18:01] LABS: Partial Thromboplastin Time 32.6 SECONDS (22.3-36.8)
[2021-05-20 18:05] LABS: Alanine Aminotransferase 31 U/L (4-35); Albumin Level 5.1 g/dL (3.5-5.1); Alkaline Phosphatase 53 U/L (38-126); Anion Gap 12 mmol/L (8-16); Aspartate Amino Transferase 33 U/L (14-36); Bilirubin,Total 0.6 mg/dL (0.2-1.3); Blood Urea Nitrogen 55 mg/dL (7-17); Calcium 9.9 mg/dL (8.4-10.2); Carbon Dioxide 15 mmol/L (22-30); Chloride 112 mmol/L (98-107); Estimated CRCL calculation 25 ml/min; Estimated Glomerular Filt Rate 26; Glucose 113 mg/dL (65-110); Potassium 6.5 mmol/L (3.4-5.0); Sodium 139 mmol/L (137-145)
[2021-05-20 18:23] LABS: NT Pro B Type Natriuretic Pept 1930 pg/mL (5-100)
[2021-05-20] MEDS: ALBUTEROL SULFATE NEB 2.5 MG/0.5 ML INH 5 MG INHALATION (18:28)
[2021-05-20] MEDS: SODIUM CHLORIDE 0.9% IV 500 ML 999 ML IV CONT (18:32)
[2021-05-20] MEDS: DEXTROSE 50% 25 GM/50 ML SYRINGE IV PUSH (18:33)
[2021-05-20] MEDS: SODIUM BICARBONATE 8.4% 50 MEQ/50 ML SYRINGE IV PUSH ×2 (18:33→20:00)
[2021-05-20] MEDS: INSULIN HUMAN REGULAR (*BKC) 100 UNITS/ML 10 UNITS IV PUSH (18:33)
[2021-05-20] MEDS: SODIUM POLYSTYRENE SULFONONATE 15 GM/60 ML BTL 30 GM PO (18:33)
--- NOTE | 2021-05-20 18:45 | PC.NURSE ---
Pt starting to have chest pain while pushing IV d50. EDP notified.
--- NOTE | 2021-05-20 18:49 | ECG_ITS ---
Measurements Intervals [place] Rate: 73 P: 83 ID: [id number] QRS: -54 QRSD: 117 T: 1 QT: 385 QTc: 425 Interpretive Statements SINUS RHYTHM INDETERMINATE AXIS LOW QRS VOLTAGE IN PRECORDIAL LEADS [QRS DEFLECTION < 1.0 mV IN CHEST LEADS] RIGHT BUNDLE BRANCH BLOCK [120+ ms QRS DURATION, UPRIGHT V1, 40+ ms S IN I/aVL/V4/V5/V6] PROBABLE ANTEROSEPTAL MYOCARDIAL INFARCTION , OF INDETERMINATE AGE [35 ms Q WAVE IN V1- V4] ABNORMAL ECG COMPARED TO ECG 05/20/2021 17:42:43 NO SIGNIFICANT CHANGES Electronically Signed On 05-21-2021 11:43:32 CDT by Obinna Perry M.D.
[2021-05-20 18:51] LABS: Add Urine Microscopic? YES; Appearance Urine Clear (Clear); Bilirubin Urine Negative (Negative); Blood Urine Negative (Negative); Color Urine Yellow (Yellow); Glucose Urine UA 1+ mg/dL (Negative); Ketones Urine Negative (Negative); Leukocyte Esterase Ur Negative LEU/UL (Negative); Nitrate Urine Negative (Negative); Protein Urine Negative (Negative); Specific Grav Ur 1.015 (1.001-1.035); Urobilinogen Urine 0.2 mg/dL (<2.0)
[2021-05-20 19:07] LABS: Bacteria Urine Trace /hpf; Mucus Urine Rare /lpf; RBC Urine 0-2 /hpf (0-2); Squamous Epithelial Cell Urine Rare /hpf (Few); WBC Urine 0-3 /hpf
--- NOTE | 2021-05-20 19:11 | PM.IMHP ---
H&P: HPI History of Present Illness Date/Time: 05/20/21 19:11 Chief Complaint: Abnormal potassium. Narrative: This is a 75-year-old female with past medical history significant for coronary artery disease, COPD, type 2 diabetes mellitus, atrial fibrillation, hypertension. Patient presents to the emergency room after she was found to have an elevated potassium of 7. Patient came to her follow-up visit with her evp of products & co founder and on repeat lab work it was shown that potassium was elevated. Patient denies any chest pain, palpitations, syncope, near syncope, dizziness, lightheadedness, shortness of breath, cough, nausea, vomiting, diarrhea, abdominal pain, fever, rigors or chills, denies taking any potassium supplements. On preliminary blood work patient was found to have a creatinine of 1.9 and a BUN of 55 However has had decreased stamina and fatigue. Patient is been admitted for further evaluation management and treatment. Review of Systems Review of Systems: Elevated potassium, decreased stamina, fatigue. Constitutional: Constitutional: Denies chills, Reports fatigue, Denies fever(s), Reports lethargy, Denies malaise, Denies night sweats, Denies poor appetite and Denies weakness Eyes: Eyes: Denies change in vision ENT: Denies dysphagia, Denies vertigo, Denies dizziness, Denies nasal congestion, Denies nasal discharge, Denies nasal obstruction and Denies odynophagia Cardiovascular: Cardiovascular: Denies chest pain, Denies chest pain with activity, Denies diaphoresis, Denies pedal edema, Denies edema, Denies claudication, Denies leg edema, Denies lightheadedness, Denies radiating jaw, neck or arm pain, Denies palpitations, Denies dyspnea on exertion, Denies orthopnea and Denies paroxysmal nocturnal dyspnea Respiratory: Respiratory: Denies cough and Denies dyspnea Gastrointestinal: Gastrointestinal: Denies abdominal pain, Denies dyspepsia, Denies heartburn, Denies diarrhea, Denies nausea and Denies vomiting Genitourinary: Genitourinary: Denies dysuria Musculoskeletal: Musculoskeletal: Denies back pain, Denies arthralgias and Denies joint swelling Integumentary/Breasts: Skin/Breast: Denies rash Neurologic: Denies vertigo, Denies dizziness, Denies focal weakness and Denies Sensory deficit (Neuro) Psychiatric: Psychiatric: Reports no additional psychiatric complaints and Reports as per HPI Endocrine: Endocrine: Denies cold intolerance, Denies flushing, Denies heat intolerance, Denies polyphagia, Denies polydipsia, Denies polyuria and Denies palpitations Hematologic/Lymphatic: Hematologic/Lymphatic: Reports no additional hematologic/lymphatic complaints and Reports as per HPI Allergic/Immunologic: Allergic/Immunologic: Reports no additional allergic/immunologic complaints and Reports as per HPI PMFSH Past Medical History Medical History Anxiety CAD (coronary artery disease) Chronic anticoagulation COPD (chronic obstructive pulmonary disease) DM2 (diabetes mellitus, type 2) Glaucoma History of atrial fibrillation Hyperlipidemia associated with type 2 diabetes mellitus Hypertension associated with type 2 diabetes mellitus Hypothyroidism Surgical History Surgical History H/O cataract extraction H/O heart artery stent Previous RCA and a stent today 12/09/2020 H/O partial thyroidectomy H/O right wrist surgery H/O tubal ligation Hx of cholecystectomy Family History Family History (Updated 01/14/21 @ 15:12 by Doreen Nova RN) Mother Cancer Father Pulmonary emboli Sibling CAD (coronary artery disease) of artery bypass graft Malignant melanoma Social History Social History Social History: The patient tells me that she never smoked but she had secondhand exposure through her ex- and other family members as well as her job who. No alcohol marijuan
[2021-05-20 19:20] LABS: Troponin I 0.012 ng/mL (0.000-0.034)
[2021-05-20] MEDS: CALCIUM GLUC 1,000 MG/NS 50 ML 1,000 MG/50 ML BAG 100 MG IVPB (20:06)
[2021-05-20 20:45] LABS: SARS-CoV-2 RNA PCR Negative
--- NOTE | 2021-05-20 23:03 | ADMIMU ---
This patient, Jenni Salinas, was admitted to IMU status, and placed in IMU Room 205-02 at 2155. Patient/family oriented to hospital policies and general routines including ID bracelet, bed and alarms, visiting hours, pain management, procedures, bathroom and other care routines, personal items, smoking policy, room service/diet, and visiting hours. Information on how to activate the Rapid Response Team has been discussed. Patient/Family are encouraged to report perceived risks to care and to ask questions if they do not understand what they are told or what they should do.
[2021-05-21] VITALS (10 sets, daily range): BP systolic 95–113; BP diastolic 45–50; PULSE 53–68; RESP 16–18; TEMP 36.2–36.3; O2SAT 98–100
--- NOTE | 2021-05-21 02:47 | ADMGEN ---
This patient, Jenni Salinas, was admitted to IMU Room 205-02 05/20/2021 @ 2155. Patient/family oriented to hospital policies and general routines including ID bracelet, bed and alarms, visiting hours, pain management, procedures, bathroom and other care routines, personal items, smoking policy, room service/diet, and visiting hours. Information on how to activate the Rapid Response Team has been discussed. Patient/Family are encouraged to report perceived risks to care and to ask questions if they do not understand what they are told or what they should do.
[2021-05-21 03:16] LABS: Basophils Absolute Auto 0.1 K/mm3 (0.0-0.1); Basophils Percent Auto 0.9 % (0.2-1.2); Eosinophils Absolute Auto 0.1 K/mm3 (0-0.3); Eosinophils Percent Auto 1.2 % (0-4.4); Hematocrit 34.5 % (37.0-47.0); Hemoglobin 11.1 g/dL (12.0-15.0); Lymphocytes Absolute Auto 1.88 K/mm3 (0.9-3.2); Lymphocytes Percent Auto 32.9 % (18.3-44.2); Mean Corpuscular HGB Conc 32.2 g/dl (32-36); Mean Corpuscular Hemoglobin 31.3 pg (26-34); Mean Corpuscular Volume 97.2 fl (80-100); Monocytes Absolute Auto 0.6 K/mm3 (0.1-0.6); Monocytes Percent Auto 9.8 % (2.6-8.5); Neutrophils Absolute Auto 3.2 K/mm3 (1.3-6.7); Neutrophils Percent Auto 55.2 % (45.5-73.1); Platelet Count Result 190 k/mm3 (150-375); Red Blood Count 3.55 M/mm3 (4.2-5.4); Red Cell Distribution Width 13.4 % (11.5-14.5); White Blood Count 5.7 K/mm3 (4.5-10.0)
[2021-05-21 03:25] LABS: Anion Gap 6 mmol/L (8-16); Blood Urea Nitrogen 47 mg/dL (7-17); Calcium 9.5 mg/dL (8.4-10.2); Carbon Dioxide 22 mmol/L (22-30); Chloride 115 mmol/L (98-107); Estimated CRCL calculation 31 ml/min; Estimated Glomerular Filt Rate 34; Glucose 79 mg/dL (65-110); Potassium 4.9 mmol/L (3.4-5.0); Sodium 143 mmol/L (137-145)
--- NOTE | 2021-05-21 04:56 | PC.NURSE ---
Informed Dr. Culver that pts potassium result this am was 4.9 no furthur orders given. Will continue to monitor patient for changes.
[2021-05-21] MEDS: LEVOTHYROXINE SODIUM 100 MCG TABLET PO (06:34)
[2021-05-21] MEDS: APIXABAN 5 MG TABLET PO (09:16)
[2021-05-21] MEDS: SOTALOL HCL 80 MG TABLET PO (09:16)
[2021-05-21] MEDS: MONTELUKAST SODIUM 10 MG TABLET PO (09:16)
[2021-05-21] MEDS: SIMVASTATIN 20 MG TABLET PO (09:17)
[2021-05-21] MEDS: TICAGRELOR 90 MG TABLET PO (09:17)
--- NOTE | 2021-05-21 10:24 | PM.IMPN ---
Subjective Date/time seen: 05/21/21 10:24 Objective Data Vital Signs Vital Signs: Vital Signs - 24 hr 05/20/21 17:26 05/20/21 17:35 05/20/21 17:36 Temperature 97.4 F L Pulse Rate 70 70 69 Respiratory Rate 14 20 19 Blood Pressure 116/64 131/61 Pulse Oximetry 99 100 100 05/20/21 17:45 05/20/21 17:46 05/20/21 18:09 Temperature Pulse Rate 66 67 64 Respiratory Rate 18 17 18 Blood Pressure 123/62 Pulse Oximetry 100 100 100 05/20/21 18:10 05/20/21 18:15 05/20/21 18:16 Temperature Pulse Rate 64 63 63 Respiratory Rate 21 H 18 20 Blood Pressure 121/54 L 111/54 L Pulse Oximetry 100 100 100 05/20/21 18:32 05/20/21 18:43 05/20/21 18:45 Temperature Pulse Rate 68 71 73 Respiratory Rate 18 16 20 Blood Pressure 153/70 H Pulse Oximetry 100 100 05/20/21 18:46 05/20/21 19:00 05/20/21 19:01 Temperature Pulse Rate 74 74 74 Respiratory Rate 21 H 20 18 Blood Pressure 153/82 H Pulse Oximetry 100 100 100 05/20/21 19:15 05/20/21 19:16 05/20/21 19:30 Temperature Pulse Rate 71 74 70 Respiratory Rate 19 18 21 H Blood Pressure 146/105 H Pulse Oximetry 100 100 100 05/20/21 19:31 05/20/21 19:45 05/20/21 19:46 Temperature Pulse Rate 72 68 67 Respiratory Rate 21 H 20 18 Blood Pressure 142/131 H 125/73 Pulse Oximetry 100 100 100 05/20/21 20:00 05/20/21 20:01 05/20/21 20:15 Temperature Pulse Rate 67 70 69 Respiratory Rate 22 H 21 H 21 H Blood Pressure 123/55 L Pulse Oximetry 100 100 100 05/20/21 20:16 05/20/21 20:30 05/20/21 20:31 Temperature Pulse Rate 71 Respiratory Rate 26 H Blood Pressure 118/52 L 113/50 L Pulse Oximetry 100 99 99 05/20/21 20:45 05/20/21 21:00 05/20/21 21:15 Temperature Pulse Rate Respiratory Rate Blood Pressure Pulse Oximetry 100 100 100 05/20/21 21:30 05/20/21 21:45 05/20/21 22:00 Temperature Pulse Rate 68 Respiratory Rate Blood Pressure Pulse Oximetry 100 100 05/20/21 22:06 05/20/21 23:55 05/21/21 00:00 Temperature 97.3 F L 96.9 F L Pulse Rate 80 61 61 Respiratory Rate 18 18 18 Blood Pressure 135/62 110/46 L Pulse Oximetry 97 99 99 05/21/21 02:00 05/21/21 03:33 05/21/21 04:00 Temperature 97.2 F L Pulse Rate 60 57 L 57 L Respiratory Rate 18 18 Blood Pressure 113/50 L Pulse Oximetry 99 99 05/21/21 06:00 05/21/21 08:00 05/21/21 08:27 Temperature 97.1 F L Pulse Rate 68 68 Respiratory Rate 18 Blood Pressure 98/45 L Pulse Oximetry 99 98 05/21/21 09:16 Temperature Pulse Rate 65 Respiratory Rate Blood Pressure Pulse Oximetry Intake/Output Intake/Output: Intake & Output 05/18/21 05/19/21 05/20/21 05/21/21 23:59 23:59 23:59 23:59 Intake Total 550 Balance 550 Meds/Results Medications: Active Medications Generic Name Dose Route Start Last Admin Trade Name Freq PRN Reason Stop Dose Admin Albuterol 2 puff 05/21/21 02:35 Albuterol Sulfate (*Sp) Aerosol 1 Puff INHALATION Q4H PRN Shortness Of Breath Or Wheezing Alprazolam 0.25 mg 05/21/21 02:35 Alprazolam (*Crx) 0.25 Mg Tablet PO TID PRN Anxiety Apixaban 5 mg 05/21/21 09:00 05/21/21 09:16 Apixaban 5 Mg Tablet PO 5 mg BID JEFFERY Administration Docusate Sodium 100 mg 05/21/21 02:35 Docusate Sodium 100 Mg Capsule PO Q12HR PRN constipation Ergocalciferol 50,000 unit 05/24/21 09:00 Ergocalciferol 50,000 Unit Capsule PO Tu@0900 JEFFERY Fluticasone Propionate 1 spray 05/21/21 09:00 05/21/21 09:18 Fluticasone Propionate 0.05% Na Spr 16 Gm Btl (*Bkc) NASAL Not Given DAILY JEFFERY Levothyroxine Sodium 100 mcg 05/21/21 06:30 05/21/21 06:34 Levothyroxine Sodium 100 Mcg Tablet PO 100 mcg DAILY@0630 JEFFERY Administration Montelukast Sodium 10 mg 05/21/21 09:00 05/21/21 09:16 Montelukast Sodium 10 Mg Tablet PO 10 mg DAILY JEFFERY Administration Nitroglycerin 0.4 mg 05/21/21 02:35 Nitroglyceri
--- NOTE | 2021-05-21 10:31 | PM.DS ---
DS: Admitting Diagnosis Discharge Date Patient was seen and examined on May 21, 2021 Admitting Diagnosis Hyperkalemia and acute kidney failure DS: Discharge Diagnosis Discharge Diagnosis (1) Acute hyperkalemia: Code(s): E87.5 - Hyperkalemia Status: Acute Assessment and Plan: Hold lisinopril and spironolactone F/u lab in 3-4 days See cardiology next week (2) Acute renal failure: Qualifiers: Acute renal failure type: unspecified Qualified Code(s): N17.9 - Acute kidney failure, unspecified Code(s): N17.9 - Acute kidney failure, unspecified Status: Acute Assessment and Plan: Due to diuretics, ACEI (3) Ischemic cardiomyopathy: Code(s): I25.5 - Ischemic cardiomyopathy Status: Acute Assessment and Plan: Chest pain-free Continue simvastatin, Bilinta, Sotalol Hold Lisinopril, spironolactone (4) COPD (chronic obstructive pulmonary disease): Qualifiers: COPD type: unspecified COPD Qualified Code(s): J44.9 - Chronic obstructive pulmonary disease, unspecified Code(s): J44.9 - Chronic obstructive pulmonary disease, unspecified Status: Chronic Assessment and Plan: Clinically stable Continue home meds (5) DM2 (diabetes mellitus, type 2): Qualifiers: Diabetes mellitus complication status: with hyperglycemia Diabetes mellitus mcc insulin use: without local intermodal truck driver use Qualified Code(s): E11.65 - Type 2 diabetes mellitus with hyperglycemia Code(s): E11.9 - Type 2 diabetes mellitus without complications Status: Acute Assessment and Plan: Resume empagliflozin (6) CAD (coronary artery disease): Qualifiers: Associated angina: without angina Coronary Disease-Associated Artery/Lesion type: [place] artery [place] vs. transplanted heart: [place] heart Qualified Code(s): I25.10 - Atherosclerotic heart disease of [place] coronary artery without angina pectoris Code(s): I25.10 - Atherosclerotic heart disease of [place] coronary artery without angina pectoris Status: Acute Assessment and Plan: No angina (7) Atrial fibrillation: Qualifiers: Atrial fibrillation type: paroxysmal Qualified Code(s): I48.0 - Paroxysmal atrial fibrillation Code(s): I48.91 - Unspecified atrial fibrillation Status: Acute Assessment and Plan: Continue sotalol and apixaban DS: Summary Hospital Course Reason for hospitalization: Hyperkalemia and acute kidney failure Hospital Course: Patient was admitted due to abnormal labs with potassium of 7. Was treated with insulin bicarb Kayexalate and glucose. Potassium improved overnight to 4.9. Spironolactone lisinopril were held. Patient had no symptoms related to this during hospitalization. EKG showed only nonspecific ST T wave changes. She was tolerating her diet up and about independently in wished to go home the day after admission. Status at Discharge Functional status at discharge: independent ambulation Overall status at discharge: patient is back to baseline Time Spent with Patient Time attestation: Total time spent providing and/or coordinating discharge services: Time spent: Greater than 30 minutes Exam Narrative: HEENT: PERRL, sclerae nonicteric, pharyngeal mucosa pink and intact NECK: No JVD, adenopathy, or thyromegaly CHEST: Clear to auscultation. Normal effort. HEART: NL S1/S2, regular, no murmur ABDOMEN: BS+, soft, nontender, no mass, no bruits EXTREMITIES: No cyanosis, edema, or clubbing NEUROLOGIC: CN intact and symmetric to inspection. MUSCULOSKELETAL: Tone and strength symmetric. PSYCH: Alert. Oriented to person, place, and time. DS: Data Data Completed and Pending Labs on day of discharge: Labs from last 24 hours 05/21/21 05/21/21 05/20/21 03:09 03:09 20:02 WBC 5.7 RBC 3.55 L Hgb 11.1 L Hct 34.5 L MCV 97.2 MCH 31.3 MCHC 32.2 RDW 13.4 Plt Count 190
--- NOTE | 2021-05-21 10:35 | PM.CNNEP ---
Assessment and Plan Additional Plan 1. Jenni has acute kidney injury. Etiology of this is not entirely clear however I suspect that it his due to the diuretics. She has improved with giving a little bit of fluid and holding the diuretics. Her symptoms were rather mild and so I think this probably came on fairly slowly. The weakness and poor stamina were probably due to the hyperkalemia. With this treated she feels better. Her creatinine has come down to 1.5. 2. Congestive heart failure the patient seems to be euvolemic right now. 3. The patient had hyperkalemia. Does like to eat tomatoes. She was on lisinopril. And of course she was dehydrated decreasing the ability for the kidneys to excrete potassium. Now that she has gotten some fluid and the treatment for the hyperkalemia her potassium is back to normal. 4. The patient had a non anion gap metabolic acidosis. This was probably due to her elevated creatinine and decreased ability to excrete ammonia. Her pH of the urine was fine at 5.0 so this is not a type 1 RTA. She corrected fairly easily so it is not a type 2 RTA. She has had no diarrhea. History of Present Illness Reason for Consult Consult date: 05/21/21 Chief Complaint Chief complaint: Acute renal failure with hyperkalemia History of Present Illness Narrative: Jenni is a very pleasant 75-year-old lady who has multiple medical problems including coronary artery disease, congestive heart failure, chronic anticoagulation, hypothyroidism, hypertension, diabetes, atrial fibrillation, glaucoma, COPD, anxiety. The patient was in the hospital in December. She had volume overload back then. She says she started Lasix back then and has been taking ever since then. The discharge summary did not have Lasix on the discharge list however she thinks that Cardiology might have started at on a follow-up visit. She has had blood work done between then and now but she does not know what the results are. She says that lately she is had some fatigue and weakness. She went to her flat drier for routine visit this week and labs were done and the potassium was 7 so she was brought over to the emergency room. In the ER she was evaluated her potassium was still high and her creatinine was 1 . 9 and her bicarbonate level was low. The patient received Kayexalate insulin bicarb and glucose to treat the potassium. The bicarb also helped her bicarbonate levels. She received a little bit of fluid in the ER and her diuretics were discontinued. She feels okay today. She has not been short of breath through this whole experience. Review of Systems Constitutional: Constitutional: Reports no additional constitutional complaints Eyes: Eyes: Reports no additional eye complaints ENT: Reports system reviewed and no additional complaints, except as documented Cardiovascular: Cardiovascular: Reports no additional cardiovascular complaints Respiratory: Respiratory: Reports no additional respiratory complaints Gastrointestinal: Gastrointestinal: Reports no additional gastrointestinal complaints Genitourinary: Genitourinary: Reports no additional female genitourinary complaints Musculoskeletal: Musculoskeletal: Reports no additional musculoskeletal complaints Integumentary/Breasts: Skin/Breast: Reports system reviewed and no additional complaints, except as docu Neurologic: Reports system reviewed and no additional complaints, except as documented Psychiatric: Psychiatric: Reports no additional psychiatric complaints Endocrine: Endocrine: Reports no additional endocrine complaints [facility] Past Medical History Medical History Anxiety CAD (coronary artery disease) Chronic anticoagulation COPD (chronic obstructive pulmonary disease) DM2 (diabetes mellitus, type 2) Glaucoma History of atrial fibrillation Hyperlipidemia associated with type 2 diabetes mellitus Hyp
== END 2021-05-21 13:36 | disposition home or self-care (01) | DRG 641 ==
LOC: ANHED 18:47 → ANHIMU 21:14
PROVIDERS: Admitting Provider Family Medicine; Emergency Provider General Practice; Visit Provider Internal Medicine
DX: E87.5 Hyperkalemia (principal); N17.9 Acute kidney failure, unspecified; I25.5 Ischemic cardiomyopathy; J44.9 Chronic obstructive pulmonary disease, unspecified; Z82.49 Family history of ischemic heart disease and other diseases of the circulatory system; Z80.9 Family history of malignant neoplasm, unspecified; I25.10 Atherosclerotic heart disease of native coronary artery without angina pectoris; E78.5 Hyperlipidemia, unspecified; E03.9 Hypothyroidism, unspecified; F41.9 Anxiety disorder, unspecified; Z95.5 Presence of coronary angioplasty implant and graft; E11.65 Type 2 diabetes mellitus with hyperglycemia; I48.0 Paroxysmal atrial fibrillation; Z79.899 Other long term (current) drug therapy; Z79.01 Long term (current) use of anticoagulants
CPT/HCPCS: 36415; 71045; 74176; 80048; 80053; 81001; 83880; 84484; 85025; 85610; 85730; 93005; 94640; 96374; 96375; 97161; 97165; 99291; A9270; C9803; J0610; J1815; J7040; U0003; U0005

== ENCOUNTER 2021-05-24 12:26 | Outpatient (CLI) | payer MEDICARE, SELFPAY ==
[2021-05-24 13:12] LABS: Albumin Level 4.7 g/dL (3.5-5.1); Anion Gap 9 mmol/L (8-16); Blood Urea Nitrogen 29 mg/dL (7-17); Calcium 9.2 mg/dL (8.4-10.2); Carbon Dioxide 24 mmol/L (22-30); Chloride 108 mmol/L (98-107); Estimated Glomerular Filt Rate 37; Glucose 116 mg/dL (65-110); Phosphorus 3.6 mg/dL (2.5-4.5); Potassium 4.5 mmol/L (3.4-5.0); Sodium 141 mmol/L (137-145)
== END 2021-05-24 12:27 | disposition home or self-care (01) ==
PROVIDERS: PCP Internal Medicine Cardiovascular Disease; Visit Provider Internal Medicine
DX: E87.5 Hyperkalemia (principal); N17.9 Acute kidney failure, unspecified
CPT/HCPCS: 36415; 80069

== ENCOUNTER 2021-11-21 13:51 | Emergency (ER) | payer MEDICARE, SELFPAY ==
[2021-11-21] VITALS (15 sets, daily range): BP systolic 136–172; BP diastolic 57–146; PULSE 68–78; RESP 18; TEMP 36.4; O2SAT 95–100
--- NOTE | ~2021-11-21 | CT_ITS ---
EXAMINATION: CT abdomen pelvis w con DATE: 11/21/2021 17:23 INDICATION: right flank pain radiating to abdomen TECHNIQUE: Computed tomography (CT) of the abdomen and pelvis was performed with 100 mL Omnipaque-350 intravenous contrast. Automated exposure control and iterative reconstruction technique were employe d. The dose-length product was 480.09 mGy-cm. COMPARISON: 05/20/2021 and 03/27/2015. FINDINGS: Lower thorax: Coronary artery calcification and stents. Benign left lower lobe nodule Liver: Diffuse fatty infiltration. Biliary/Gallbladder: Gallbladder is absent. No bile duct dilation. Pancreas: No mass or duct dilation. Spleen: Granulomatous calcifications. Adrenals:No mass. Kidneys: Right midpole hypodensity, too small to characterize but most likely represents a cyst. Bila teral cortical thinning. No suspicious mass or hydronephrosis. No obstructing calcification GI tract: Distal esophageal and gastric wall edema. No small or large bowel dilation. Normal appendix . Diverticulosis without diverticulitis. Mesentery/Peritoneum: No ascites, mass, or free air. Retroperitoneum: No mass. Atherosclerotic abdominal aortic and/or arterial calcifications. Pelvis: Bladder wall thickening and inflammation. Soft Tissues: Soft tissues and body wall unremarkable. Bones: No acute osseous finding. IMPRESSION: Esophagitis/gastritis. Steatosis. Likely cystitis. Reviewed, dictated and finalized at [facility].
[2021-11-21 14:15] LABS: Basophils Absolute Auto 0.1 K/mm3 (0.0-0.1); Eosinophils Percent Auto 0.7 % (0-4.4); Hematocrit 44.9 % (37.0-47.0); Immature Granulocyte Absolute 0.01 K/mm3 (0.00-0.031); Immature Granulocyte Percent A 0.2 % (0-0.5); Lymphocytes Absolute Auto 1.06 K/mm3 (0.9-3.2); Lymphocytes Percent Auto 18.1 % (18.3-44.2); Mean Corpuscular HGB Conc 31.2 g/dl (32-36); Mean Corpuscular Hemoglobin 29.9 pg (26-34); Mean Corpuscular Volume 95.9 fl (80-100); Mean Platelet Volume 10.1 fl (7.4-10.4); Monocytes Absolute Auto 0.4 K/mm3 (0.1-0.6); Neutrophils Absolute Auto 4.3 K/mm3 (1.3-6.7); Platelet Count Result 259 k/mm3 (150-375); Red Blood Count 4.68 M/mm3 (4.2-5.4); Red Cell Distribution Width 14.6 % (11.5-14.5); White Blood Count 5.9 K/mm3 (4.5-10.0)
[2021-11-21 14:31] LABS: Add Urine Microscopic? YES; Appearance Urine Clear (Clear); Bilirubin Urine Negative (Negative); Blood Urine 1+ (Negative); Color Urine Straw (Yellow); Glucose Urine UA 3+ mg/dL (Negative); Ketones Urine Negative (Negative); Leukocyte Esterase Ur Negative LEU/UL (Negative); Mucus Urine Rare /lpf; Nitrate Urine Negative (Negative); Protein Urine Negative (Negative); RBC Urine 0-2 /hpf (0-2); Specific Grav Ur 1.014 (1.001-1.035); Urobilinogen Urine Negative mg/dL (<2.0); WBC Urine 0-3 /hpf
[2021-11-21 15:59] LABS: Alanine Aminotransferase 35 U/L (6-35); Albumin Level 4.8 g/dL (3.5-5.1); Alkaline Phosphatase 69 U/L (38-126); Anion Gap 12 mmol/L (8-16); Aspartate Amino Transferase 33 U/L (14-36); Bilirubin,Total 0.6 mg/dL (0.2-1.3); Blood Urea Nitrogen 31 mg/dL (7-17); Calcium 9.8 mg/dL (8.4-10.2); Carbon Dioxide 28 mmol/L (22-30); Chloride 104 mmol/L (98-107); Estimated CRCL calculation 40 ml/min; Estimated Glomerular Filt Rate 48; Glucose 129 mg/dL (65-110); Lipase 101 U/L (23-300); Potassium 4.2 mmol/L (3.4-5.0); Sodium 144 mmol/L (137-145)
--- NOTE | 2021-11-21 17:10 | ED.ABDPAIN ---
HPI - Abdominal Pain General Chief Complaint: Abdominal Pain Stated Complaint: right flank pain Time Seen by Provider: 11/21/21 16:08 Source: patient Mode of arrival: ambulatory Limitations: no limitations History of Present Illness HPI narrative: This is a 76 year old female that presents to the ER for right low abdominal pain present since yesterday. Reports it radiates into her right flank. Denies fever, vomiting, dysuria or hematuria. Related Data Home Medications Medication Instructions Recorded Confirmed albuterol sulfate 90 mcg/actuation 2 inh inhalation Q4H PRN Shortness 12/09/20 05/20/21 aerosol inhaler Of Breath Or Wheezing alprazolam 0.25 mg tablet 0.25 mg PO TID PRN Anxiety 12/09/20 05/20/21 apixaban 5 mg tablet (Eliquis) 5 mg PO BID 12/09/20 05/20/21 blood sugar diagnostic (OneTouch 12/09/20 05/20/21 Verio test strips) ergocalciferol (vitamin D2) 1,250 50,000 unit PO WEEKLY 12/09/20 05/20/21 mcg (50,000 unit) capsule montelukast 10 mg tablet 10 mg PO DAILY 12/09/20 05/20/21 simvastatin 20 mg tablet 20 mg PO DAILY 12/09/20 05/20/21 sotalol 80 mg tablet 80 mg PO Q12H 12/09/20 05/20/21 fexofenadine 180 mg tablet 180 mg PO DAILY 01/14/21 05/20/21 fluticasone propionate 50 1 spray intranasal DAILY 01/14/21 05/20/21 mcg/actuation nasal spray,suspension nitroglycerin 0.4 mg sublingual 0.4 mg sublingual Q5-15M PRN Chest 01/14/21 05/20/21 tablet Pain levothyroxine 100 mcg tablet 100 mcg PO DAILY 05/20/21 05/20/21 Allergies Allergy/AdvReac Type Severity Reaction Status Date / Time sulfamethoxazole Allergy Unknown Hives Verified 12/09/20 06:13 Review of Systems Review of Systems: CONSTITUTIONAL: Denies fever GASTROINTESTINAL: Reports abdominal pain. Denies nausea, vomiting, or diarrhea. GENITOURINARY: Denies dysuria or hematuria. All systems reviewed & are unremarkable except as noted in HPI and below PMFSH Past Medical History Medical History Anxiety CAD (coronary artery disease) Chronic anticoagulation COPD (chronic obstructive pulmonary disease) DM2 (diabetes mellitus, type 2) Glaucoma History of atrial fibrillation Hyperlipidemia associated with type 2 diabetes mellitus Hypertension associated with type 2 diabetes mellitus Hypothyroidism Surgical History Surgical History H/O cataract extraction H/O heart artery stent Previous RCA and a stent today 12/09/2020 H/O partial thyroidectomy H/O right wrist surgery H/O tubal ligation Hx of cholecystectomy Family History Family History Mother Cancer Father Pulmonary emboli Sibling CAD (coronary artery disease) of artery bypass graft Malignant melanoma Social History Social History Social History: The patient tells me that she never smoked but she had secondhand exposure through her ex- and other family members as well as her job who. No alcohol marijuana or illicit drugs. 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 She had 7 children but only 6 arrived. She is . She is does not have a durable power criminal attorney for healthcare. Code status full code. Smoking status: Never smoker Second hand tobacco smoke exposure: Yes (one of her sons lives with her and does smoke in the house) Alcohol intake: never Substance use: never Spiritual care concerns: No Exam Narrative: GENERAL: Well-appearing, well-nourished, and in no acute distress. HEAD: Normocephalic, atraumatic. EYES: EOMI. CHEST: Clear to auscultation. No respiratory distress. No wheezes rales or rhonchi HEART: Regular rate and rhythm. No murmur heard. Normal peripheral pulses. ABDOMEN: Soft, nondistended, normal active bowel sounds. Mild tenderness to palpation in the right lower quadrant, without guarding. No CVA tenderness EXTREMITIES:
== END 2021-11-21 18:51 | disposition home or self-care (01) ==
PROVIDERS: Emergency Provider Emergency Medicine
DX: K20.90 Esophagitis, unspecified without bleeding (principal); I25.10 Atherosclerotic heart disease of native coronary artery without angina pectoris; J44.9 Chronic obstructive pulmonary disease, unspecified; I48.91 Unspecified atrial fibrillation; E11.69 Type 2 diabetes mellitus with other specified complication; E78.5 Hyperlipidemia, unspecified; I15.2 Hypertension secondary to endocrine disorders; H40.9 Unspecified glaucoma; E89.0 Postprocedural hypothyroidism; Z98.49 Cataract extraction status, unspecified eye; Z95.5 Presence of coronary angioplasty implant and graft; Z77.22 Contact with and (suspected) exposure to environmental tobacco smoke (acute) (chronic); Z79.01 Long term (current) use of anticoagulants; Z79.84 Long term (current) use of oral hypoglycemic drugs; K76.0 Fatty (change of) liver, not elsewhere classified
CPT/HCPCS: 36415; 74177; 80053; 81001; 83690; 85025; 99284; Q9967

== ENCOUNTER 2021-12-10 12:42 | Emergency (ER) | payer MEDICARE, SELFPAY ==
[2021-12-10] VITALS (13 sets, daily range): BP systolic 149–151; BP diastolic 53–75; PULSE 69; RESP 14; TEMP 36.4; O2SAT 94–99
--- NOTE | ~2021-12-10 | CT_ITS ---
EXAMINATION: CT abdomen pelvis w con DATE: 12/10/2021 13:54 INDICATION: Right lower quadrant abdominal pain, tenderness TECHNIQUE: Computed tomography (CT) of the abdomen and pelvis was performed with 100 CC Omnipaque 350 intravenous contrast. Automated exposure control and iterative reconstruction technique were employe d. Exam dose: 571.10 mGy-cm total exam DLP. COMPARISON: 11/21/2021 CT abdomen pelvis FINDINGS: The lung bases are clear of infiltrate or consolidation. There is cardiomegaly. No pericard ial or pleural effusion. Status post cholecystectomy. Hepatic steatosis. The liver, spleen, pancreas and adrenal glands are un remarkable except for a small fatty lesion of the right adrenal gland, benign. 6.5 mm right renal cyst. The kidneys are otherwise unremarkable. No urinary tract calculus or hydrour eteronephrosis. Normal caliber of the abdominal aorta. No intraperitoneal or retroperitoneal or pelvic mass lesion or adenopathy or ascites. The uterus, ovaries and urinary bladder are unremarkable. There is mild free fluid in the right adnex al area. There are numerous diverticula of the sigmoid and descending colon and to a minimal extent right colo n; no CT evidence of diverticulitis. Normal appendix. No bowel obstruction, bowel wall thickening, pn eumatosis or intraperitoneal free air is detected. Small fat-containing umbilical hernia. No suspicious osteolytic or osteoblastic lesions. IMPRESSION: Normal appendix Mild free fluid in the right adnexal area; no ovarian mass lesion is noted Status post cholecystectomy Diverticulosis of the colon; no evidence of diverticulitis Hepatic steatosis Reviewed, dictated and finalized at [facility]. Reviewed, dictated and finalized at [facility].
[2021-12-10 13:13] LABS: Basophils Percent Auto 1.2 % (0.2-1.2); Eosinophils Percent Auto 0.3 % (0-4.4); Hematocrit 38.3 % (37.0-47.0); Hemoglobin 12.5 g/dL (12.0-15.0); Immature Granulocyte Absolute 0.01 K/mm3 (0.00-0.031); Immature Granulocyte Percent A 0.3 % (0-0.5); Lymphocytes Absolute Auto 0.84 K/mm3 (0.9-3.2); Lymphocytes Percent Auto 25.2 % (18.3-44.2); Mean Corpuscular HGB Conc 32.6 g/dl (32-36); Mean Corpuscular Hemoglobin 30.6 pg (26-34); Mean Corpuscular Volume 93.6 fl (80-100); Mean Platelet Volume 9.9 fl (7.4-10.4); Monocytes Absolute Auto 0.4 K/mm3 (0.1-0.6); Monocytes Percent Auto 10.8 % (2.6-8.5); Neutrophils Absolute Auto 2.1 K/mm3 (1.3-6.7); Neutrophils Percent Auto 62.2 % (45.5-73.1); Platelet Count Result 207 k/mm3 (150-375); Red Blood Count 4.09 M/mm3 (4.2-5.4); Red Cell Distribution Width 14.8 % (11.5-14.5); White Blood Count 3.3 K/mm3 (4.5-10.0)
--- NOTE | 2021-12-10 13:22 | ED.ABDPAIN ---
HPI - Abdominal Pain General Chief Complaint: Abdominal Pain Stated Complaint: abd and bilat flank pain Time Seen by Provider: 12/10/21 12:50 History of Present Illness HPI narrative: Patient is a 76-year-old female with a history of A. fib on Eliquis, CAD status post PAULINE, hypothyroidism, hypertension, hyperlipidemia presenting with abdominal pain. Patient states that for the last 3 days she has had worsening right lower quadrant pain. States that she has also noticed an increase in urinary frequency. States she has been nauseated but has not vomited. Denies diarrhea. States she has been constipated but she was able to have a normal bowel movement this morning. She denies fevers, chest pain, shortness of breath, cough, dysuria, leg swelling. Related Data Home Medications Medication Instructions Recorded Confirmed albuterol sulfate 90 mcg/actuation 2 inh inhalation Q4H PRN Shortness 12/09/20 05/20/21 aerosol inhaler Of Breath Or Wheezing alprazolam 0.25 mg tablet 0.25 mg PO TID PRN Anxiety 12/09/20 05/20/21 apixaban 5 mg tablet (Eliquis) 5 mg PO BID 12/09/20 05/20/21 blood sugar diagnostic (OneTouch 12/09/20 05/20/21 Verio test strips) ergocalciferol (vitamin D2) 1,250 50,000 unit PO WEEKLY 12/09/20 05/20/21 mcg (50,000 unit) capsule montelukast 10 mg tablet 10 mg PO DAILY 12/09/20 05/20/21 simvastatin 20 mg tablet 20 mg PO DAILY 12/09/20 05/20/21 sotalol 80 mg tablet 80 mg PO Q12H 12/09/20 05/20/21 fexofenadine 180 mg tablet 180 mg PO DAILY 01/14/21 05/20/21 fluticasone propionate 50 1 spray intranasal DAILY 01/14/21 05/20/21 mcg/actuation nasal spray,suspension nitroglycerin 0.4 mg sublingual 0.4 mg sublingual Q5-15M PRN Chest 01/14/21 05/20/21 tablet Pain levothyroxine 100 mcg tablet 100 mcg PO DAILY 05/20/21 05/20/21 Allergies Allergy/AdvReac Type Severity Reaction Status Date / Time sulfamethoxazole Allergy Unknown Hives Verified 12/09/20 06:13 Review of Systems Review of Systems: All systems reviewed & are unremarkable except as noted in HPI and below PMFSH Past Medical History Medical History Anxiety CAD (coronary artery disease) Chronic anticoagulation COPD (chronic obstructive pulmonary disease) DM2 (diabetes mellitus, type 2) Glaucoma History of atrial fibrillation Hyperlipidemia associated with type 2 diabetes mellitus Hypertension associated with type 2 diabetes mellitus Hypothyroidism Surgical History Surgical History H/O cataract extraction H/O heart artery stent Previous RCA and a stent today 12/09/2020 H/O partial thyroidectomy H/O right wrist surgery H/O tubal ligation Hx of cholecystectomy Family History Family History Mother Cancer Father Pulmonary emboli Sibling CAD (coronary artery disease) of artery bypass graft Malignant melanoma Social History Social History Social History: The patient tells me that she never smoked but she had secondhand exposure through her ex- and other family members as well as her job who. No alcohol marijuana or illicit drugs. 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 She had 7 children but only 6 arrived. She is . She is does not have a durable power erisa attorney for healthcare. Code status full code. Smoking status: Never smoker Second hand tobacco smoke exposure: Yes (one of her sons lives with her and does smoke in the house) Alcohol intake: never Substance use: never Spiritual care concerns: No Exam Narrative: GENERAL: Well-appearing, well-nourished, and in no acute distress. HEAD: Normocephalic, atraumatic. EYES: PERRLA and EOMI. ENT: Nares clear, no rhinorrhea or epistaxis. Mucous membranes moist. NECK: Supple. CHEST: Clear to auscultation. No respiratory distress. HEART
[2021-12-10 13:23] LABS: Alanine Aminotransferase 132 U/L (6-35); Albumin Level 4.4 g/dL (3.5-5.1); Alkaline Phosphatase 152 U/L (38-126); Anion Gap 11 mmol/L (8-16); Aspartate Amino Transferase 98 U/L (14-36); Bilirubin,Total 0.7 mg/dL (0.2-1.3); Blood Urea Nitrogen 21 mg/dL (7-17); Calcium 9.3 mg/dL (8.4-10.2); Carbon Dioxide 21 mmol/L (22-30); Chloride 107 mmol/L (98-107); Estimated CRCL calculation 40 ml/min; Estimated Glomerular Filt Rate 48; Glucose 137 mg/dL (65-110); Lipase 66 U/L (23-300); Potassium 3.7 mmol/L (3.4-5.0); Sodium 139 mmol/L (137-145)
[2021-12-10] MEDS: SODIUM CHLORIDE 0.9% IV 1,000 ML 999 ML IV CONT (13:31)
[2021-12-10 13:39] LABS: Appearance Urine Clear (Clear); Bilirubin Urine Negative (Negative); Blood Urine Trace-intact (Negative); Color Urine Yellow (Yellow); Glucose Urine UA 3+ mg/dL (Negative); Ketones Urine Negative (Negative); Leukocyte Esterase Ur Negative LEU/UL (Negative); Nitrate Urine Negative (Negative); Protein Urine Negative (Negative); Specific Grav Ur <= 1.005 (1.001-1.035); Urobilinogen Urine 0.2 mg/dL (<2.0)
[2021-12-10 14:11] LABS: Mucus Urine Rare /lpf; Squamous Epithelial Cell Urine Rare /hpf (Few); WBC Urine 0-3 /hpf
[2021-12-10 14:26] LABS: Add Urine Microscopic? YES
== END 2021-12-10 14:58 | disposition home or self-care (01) ==
PROVIDERS: Emergency Provider Emergency Medicine
DX: R10.31 Right lower quadrant pain (principal); I48.91 Unspecified atrial fibrillation; I25.10 Atherosclerotic heart disease of native coronary artery without angina pectoris; J44.9 Chronic obstructive pulmonary disease, unspecified; E11.9 Type 2 diabetes mellitus without complications; E78.5 Hyperlipidemia, unspecified; Z79.01 Long term (current) use of anticoagulants
CPT/HCPCS: 36415; 74177; 80053; 81001; 83690; 85025; 96361; 96374; 99284; J0131; J7030; Q9967

== ENCOUNTER 2022-11-14 00:39 | Day surgery (SDC) | payer MEDICARE, SELFPAY ==
[2022-11-13 16:00] VITALS: BMI 34.2
[2022-11-14] VITALS (11 sets, daily range): BP systolic 103–144; BP diastolic 64–100; PULSE 71–134; RESP 14–18; TEMP 36.6; O2SAT 96–100; BMI 33.5
--- NOTE | 2022-11-14 09:30 | ECG_ITS ---
Measurements Intervals [place] Rate: 131 P: [place]: 0 QRS: 161 QRSD: 128 T: 0 QT: 316 QTc: 468 Interpretive Statements ATRIAL FLUTTER/TACHYCARDIA WITH RAPID VENTRICULAR RESPONSE RIGHT BUNDLE BRANCH BLOCK [120+ ms QRS DURATION, UPRIGHT V1, 40+ ms S IN I/aVL/V4/V5/V6] LEFT POSTERIOR FASCICULAR BLOCK [QRS AXIS > 109, INFERIOR Q] COMPARED TO ECG 05/20/2021 18:53:09 ATRIAL FLUTTER NOW PRESENT Electronically Signed On 11-14-2022 16:23:26 CDT by Mor Morton M.D.
[2022-11-14 09:53] LABS: Basophils Absolute Auto 0.1 K/mm3 (0.0-0.1); Basophils Percent Auto 0.7 % (0.2-1.2); Eosinophils Absolute Auto 0.1 K/mm3 (0-0.3); Eosinophils Percent Auto 0.8 % (0-4.4); Hematocrit 45.7 % (37.0-47.0); Hemoglobin 14.7 g/dL (12.0-15.0); Immature Granulocyte Absolute 0.03 K/mm3 (0.00-0.031); Immature Granulocyte Percent A 0.4 % (0-0.5); Lymphocytes Absolute Auto 1.22 K/mm3 (0.9-3.2); Lymphocytes Percent Auto 16.3 % (18.3-44.2); Mean Corpuscular HGB Conc 32.2 g/dl (32-36); Mean Corpuscular Hemoglobin 30.5 pg (26-34); Mean Corpuscular Volume 94.8 fl (80-100); Mean Platelet Volume 10.5 fl (7.4-10.4); Monocytes Absolute Auto 0.5 K/mm3 (0.1-0.6); Monocytes Percent Auto 6.6 % (2.6-8.5); Neutrophils Absolute Auto 5.6 K/mm3 (1.3-6.7); Neutrophils Percent Auto 75.2 % (45.5-73.1); Platelet Count Result 242 k/mm3 (150-375); Red Blood Count 4.82 M/mm3 (4.2-5.4); Red Cell Distribution Width 13.2 % (11.5-14.5); White Blood Count 7.5 K/mm3 (4.5-10.0)
[2022-11-14 10:05] LABS: Anion Gap 10 mmol/L (8-16); Blood Urea Nitrogen 25 mg/dL (7-17); Calcium 9.5 mg/dL (8.4-10.2); Carbon Dioxide 22 mmol/L (22-30); Chloride 107 mmol/L (98-107); Estimated CRCL calculation 36 ml/min; Estimated Glomerular Filt Rate 40; Glucose 217 mg/dL (65-110); Magnesium 2.3 mg/dL (1.6-2.3); Potassium 4.3 mmol/L (3.4-5.0); Sodium 139 mmol/L (137-145)
--- NOTE | 2022-11-14 11:00 | ECG_ITS ---
Measurements Intervals [place] Rate: 72 P: 83 [place]: 206 QRS: -61 QRSD: 117 T: 0 QT: 432 QTc: 475 Interpretive Statements SINUS RHYTHM WITH OCCASIONAL SUPRAVENTRICULAR PREMATURE COMPLEXES RIGHT BUNDLE BRANCH BLOCK [120+ ms QRS DURATION, UPRIGHT V1, 40+ ms S IN I/aVL/V4/V5/V6] COMPARED TO ECG 11/14/2022 09:34:42 SINUS RHYTHM NOW PRESENT Electronically Signed On 11-14-2022 16:29:34 CDT by Mor Morton M.D.
--- NOTE | 2022-11-14 12:24 | WPDHPUPDATE1 ---
History and Physical Update Update Date/Time: 11/14/22 12:24 History and Physical has been reviewed, including an updated exam of the patient. There are NO changes in the patient's condition. Risks, benefits, and alternatives have been discussed and questions answered. Patient agrees to proceed with procedure.
--- NOTE | 2022-11-14 12:24 | WPDCARDVER ---
Cardioversion Cardioversion Date of procedure: 11/14/22 Procedure: Cardioversion Pre-op diagnosis: Atrial flutter Post-op diagnosis: Other (Successful cardioversion to sinus rhythm ) Indications: Atrial flutter with RVR Description of procedure: [facility] Written informed consent obtained for synchronized electrical cardioversion. Patient's hemodynamics and respiratory status was monitored throughout the procedure. Defibrillator pads placed in an AP position. Time out performed by DEBRA Philippe. Total of Propofol 40mg IV administered by me. Once patient was adequately sedated, synchronized electrical cardioversion performed at 250 joules with 1 shock with successful zoroastrian of sinus rhythm. Patient tolerated the procedure well without any complications. Sedation: Total of Propofol 40mg IV Findings: Successful cardioversion to sinus rhythm with 1 shock at 250 joules. Conclusion: Successful cardioversion to sinus rhythm with 1 shock at 250 joules.
--- NOTE | 2022-11-14 12:28 | WPDMODSED ---
Moderate Sedation Note-Pt Data Patient Data Diagnosis: Atrial flutter with RVR Present Complaint: Atrial flutter with RVR Procedure to be performed/Plan: Cardioversion Allergies Allergy/AdvReac Type Severity Reaction Status Date / Time sulfamethoxazole Allergy Unknown Hives Verified 11/14/22 09:39 Sulfa (Sulfonamide Allergy Hives Verified 11/14/22 09:51 Antibiotics) Home Medications Medication Instructions Recorded Confirmed Type albuterol sulfate 90 mcg/actuation 2 inh inhalation Q4H PRN Shortness 12/09/20 11/14/22 History aerosol inhaler Of Breath Or Wheezing alprazolam 0.25 mg tablet 0.25 mg PO TID PRN Anxiety 12/09/20 11/14/22 History apixaban 5 mg tablet (Eliquis) 5 mg PO BID 12/09/20 11/14/22 History blood sugar diagnostic (OneTouch 12/09/20 05/20/21 History Verio test strips) ergocalciferol (vitamin D2) 1,250 50,000 unit PO WEEKLY 12/09/20 11/14/22 History mcg (50,000 unit) capsule montelukast 10 mg tablet 10 mg PO DAILY 12/09/20 11/14/22 History simvastatin 20 mg tablet 20 mg PO DAILY 12/09/20 11/14/22 History sotalol 80 mg tablet 80 mg PO Q12H 12/09/20 11/14/22 History docusate sodium 100 mg capsule 100 mg PO Q12HR PRN constipation 12/12/20 11/14/22 Rx #60 caps empagliflozin 10 mg tablet 10 mg PO DAILY #30 tabs 12/12/20 11/14/22 Rx (Jardiance) fexofenadine 180 mg tablet 180 mg PO DAILY PRN Allergy 01/14/21 11/14/22 History Symptoms fluticasone propionate 50 1 spray intranasal DAILY PRN 01/14/21 11/14/22 History mcg/actuation nasal Allergy Symptoms spray,suspension nitroglycerin 0.4 mg sublingual 0.4 mg sublingual Q5-15M PRN Chest 01/14/21 11/14/22 History tablet Pain levothyroxine 100 mcg tablet 100 mcg PO DAILY 05/20/21 11/14/22 History aspirin 81 mg tablet,delayed 81 mg PO DAILY 11/14/22 11/14/22 History release vit A 1000 unit-C 300 mg-E 100 1 tablet PO DAILY 11/14/22 11/14/22 History [id number] 2 [id number] tablet Current Medications: Active Medications Sodium Chloride (Normal Saline Iv) 1,000 mls @ 30 mls/hr IV CONT .Q24H JEFFERY Sedation/Anesthesia: No previous sedation/anesthesia problems (including family history). [facility] Past Medical History Medical History Anxiety CAD (coronary artery disease) Chronic anticoagulation COPD (chronic obstructive pulmonary disease) DM2 (diabetes mellitus, type 2) Glaucoma History of atrial fibrillation Hyperlipidemia associated with type 2 diabetes mellitus Hypertension associated with type 2 diabetes mellitus Hypothyroidism Surgical History Surgical History H/O cataract extraction H/O heart artery stent Previous RCA and a stent today 12/09/2020 H/O partial thyroidectomy H/O right wrist surgery H/O tubal ligation Hx of cholecystectomy Family History Family History Mother Cancer Father Pulmonary emboli Sibling CAD (coronary artery disease) of artery bypass graft Malignant melanoma Social History Social History Social History: The patient tells me that she never smoked but she had secondhand exposure through her ex- and other family members as well as her job who. No alcohol marijuana or illicit drugs. 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 She had 7 children but only 6 arrived. She is . She is does not have a durable power defense attorney for healthcare. Code status full code. Smoking status: Never smoker Second hand tobacco smoke exposure: No Alcohol intake: never Substance use: never Substance use type: does not use Living arrangements: alone Spiritual care concerns: No Mod Sed Physical Exam Physical Exam Pre Procedural Exam: Normal: Appearance, Lungs, Neuro Exam, Abdomen, Extremities and Skin and Variation: Heart Rate (Atrial flutter with RVR
== END 2022-11-14 13:40 | disposition home or self-care (01) ==
PROVIDERS: Visit Provider Internal Medicine
PROC: 5A2204Z Restoration of Cardiac Rhythm, Single (ICD-10-PCS; principal; 2022-11-14 11:00)
DX: I48.92 Unspecified atrial flutter (principal); I48.0 Paroxysmal atrial fibrillation; I44.5 Left posterior fascicular block; I45.10 Unspecified right bundle-branch block; I25.5 Ischemic cardiomyopathy; E03.9 Hypothyroidism, unspecified; R93.1 Abnormal findings on diagnostic imaging of heart and coronary circulation; I25.10 Atherosclerotic heart disease of native coronary artery without angina pectoris; I10 Essential (primary) hypertension; E78.2 Mixed hyperlipidemia; E11.9 Type 2 diabetes mellitus without complications; F41.9 Anxiety disorder, unspecified; Z95.5 Presence of coronary angioplasty implant and graft; Z79.51 Long term (current) use of inhaled steroids; Z79.01 Long term (current) use of anticoagulants; Z79.82 Long term (current) use of aspirin; J44.9 Chronic obstructive pulmonary disease, unspecified
CPT/HCPCS: 36415; 80048; 83735; 84443; 85025; 92960; J2704; J7030

== ENCOUNTER 2023-02-12 01:53 | Day surgery (SDC) | payer MEDICARE, SELFPAY ==
[2023-02-09 17:19] VITALS: BMI 34.0
[2023-02-12] VITALS (8 sets, daily range): BP systolic 88–188; BP diastolic 62–95; PULSE 59–128; RESP 12–20; TEMP 36.6; O2SAT 97–100; BMI 34.0
--- NOTE | 2023-02-12 10:00 | ECG_ITS ---
Measurements Intervals [place] Rate: 60 P: 90 [place]: 220 QRS: -54 QRSD: 120 T: -8 QT: 450 QTc: 451 Interpretive Statements SINUS RHYTHM WITH FIRST DEGREE AV BLOCK ATRIAL PREMATURE COMPLEX RIGHT BUNDLE BRANCH BLOCK CANNOT RULE OUT SEPTAL INFARCT, AGE INDETERMINATE ABNORMAL ECG COMPARED TO ECG 02/12/2023 10:20:29 SINUS RHYTHM NOW PRESENT FIRST DEGREE AV BLOCK NOW PRESENT Electronically Signed On 02-12-2023 11:53:01 TURN SEWER by Sancho Jordan D.O.
[2023-02-12 10:57] LABS: Anion Gap 10 mmol/L (8-16); Blood Urea Nitrogen 25 mg/dL (7-17); Calcium 9.4 mg/dL (8.4-10.2); Carbon Dioxide 23 mmol/L (22-30); Chloride 105 mmol/L (98-107); Estimated CRCL calculation 46 ml/min; Estimated Glomerular Filt Rate 54; Glucose 161 mg/dL (65-110); Magnesium 2.2 mg/dL (1.6-2.3); Potassium 4.8 mmol/L (3.4-5.0); Sodium 138 mmol/L (137-145)
--- NOTE | 2023-02-12 11:19 | WPDHPUPDATE1 ---
History and Physical Update Update Date/Time: 02/12/23 11:19 History and Physical has been reviewed, including an updated exam of the patient. There are NO changes in the patient's condition. Risks, benefits, and alternatives have been discussed and questions answered. Patient agrees to proceed with procedure.
--- NOTE | 2023-02-12 11:19 | WPDMODSED ---
Moderate Sedation Note-Pt Data Patient Data Diagnosis: Atrial flutter with rapid ventricular response Present Complaint: none Procedure to be performed/Plan: elective electrical cardioversion Allergies Allergy/AdvReac Type Severity Reaction Status Date / Time sulfamethoxazole Allergy Unknown Hives Verified 02/12/23 10:19 Sulfa (Sulfonamide Allergy Hives Verified 02/12/23 10:19 Antibiotics) quinapril AdvReac Cough Verified 02/12/23 10:19 Home Medications Medication Instructions Recorded Confirmed Type albuterol sulfate 90 mcg/actuation 2 inh inhalation Q4H PRN Shortness 12/09/20 02/09/23 History aerosol inhaler Of Breath Or Wheezing alprazolam 0.25 mg tablet 0.25 mg PO TID PRN Anxiety 12/09/20 02/09/23 History apixaban 5 mg tablet (Eliquis) 5 mg PO BID 12/09/20 02/09/23 History blood sugar diagnostic (OneTouch 12/09/20 05/20/21 History Verio test strips) ergocalciferol (vitamin D2) 1,250 50,000 unit PO WEEKLY 12/09/20 02/09/23 History mcg (50,000 unit) capsule montelukast 10 mg tablet 10 mg PO DAILY 12/09/20 02/09/23 History simvastatin 20 mg tablet 20 mg PO DAILY 12/09/20 02/09/23 History sotalol 80 mg tablet 80 mg PO Q12H 12/09/20 02/09/23 History docusate sodium 100 mg capsule 100 mg PO Q12HR PRN constipation 12/12/20 02/09/23 Rx #60 caps empagliflozin 10 mg tablet 10 mg PO DAILY #30 tabs 12/12/20 02/09/23 Rx (Jardiance) fexofenadine 180 mg tablet 180 mg PO DAILY PRN Allergy 01/14/21 02/09/23 History Symptoms fluticasone propionate 50 1 spray intranasal DAILY PRN 01/14/21 02/09/23 History mcg/actuation nasal Allergy Symptoms spray,suspension nitroglycerin 0.4 mg sublingual 0.4 mg sublingual Q5-15M PRN Chest 01/14/21 02/09/23 History tablet Pain levothyroxine 100 mcg tablet 100 mcg PO DAILY 05/20/21 02/09/23 History aspirin 81 mg tablet,delayed 81 mg PO DAILY 11/14/22 02/09/23 History release vit A 1000 unit-C 300 mg-E 100 1 tablet PO DAILY 11/14/22 02/09/23 History [id number] 2 cb-khxl-[id number] tablet Current Medications: Active Medications Sodium Chloride (Normal Saline Iv) 1,000 mls @ 30 mls/hr IV CONT .Q24H JEFFERY Sedation/Anesthesia: No previous sedation/anesthesia problems (including family history). [facility] Past Medical History Medical History Anxiety CAD (coronary artery disease) Chronic anticoagulation COPD (chronic obstructive pulmonary disease) DM2 (diabetes mellitus, type 2) Glaucoma History of atrial fibrillation Hyperlipidemia associated with type 2 diabetes mellitus Hypertension associated with type 2 diabetes mellitus Hypothyroidism Surgical History Surgical History H/O cataract extraction H/O heart artery stent Previous RCA and a stent today 12/09/2020 H/O partial thyroidectomy H/O right wrist surgery H/O tubal ligation Hx of cholecystectomy Family History Family History Mother Cancer Father Pulmonary emboli Sibling CAD (coronary artery disease) of artery bypass graft Malignant melanoma Social History Social History Social History: The patient tells me that she never smoked but she had secondhand exposure through her ex- and other family members as well as her job who. No alcohol marijuana or illicit drugs. 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 She had 7 children but only 6 arrived. She is . She is does not have a durable power litigation attorney for healthcare. Code status full code. Smoking packs per day: 0 Smoking cigarettes per day: 0.0 Years smoked: 0 Smoking pack-years: 0.00 Smoking status: Never smoker Second hand tobacco smoke exposure: Yes Alcohol intake: never Substance use: never Substance use type: does not use Living arrangements: alone Spiritual car
--- NOTE | 2023-02-12 11:21 | P.PCNCVR_ITS ---
Cardioversion Cardioversion Date of procedure: 02/12/23 Procedure: elective electrical cardioversion Pre-op diagnosis: atrial flutter with rapid ventricular response Post-op diagnosis: Same Indications: atrial flutter with rapid ventricular response Description of procedure: Brief history present illness: Patient is a pleasant 77-year-old female with a history of CAD status post WI with stent to RCA and LAD, ischemic and nonischemic cardiomyopathy, paroxysmal atrial fibrillation and recent atrial flutter with RVR progressive fatigue and shortness of breath referred for elective electrical cardioversion in attempt to restore sinus rhythm. Procedure in detail: After verbal and written informed consent was obtained the patient risks, benefits, and alternatives explained in detail the patient agreed to proceed with the plan of care as outlined above. Patient was evaluated at bedside [facility]. On examination, neck was supple with normal range of motion, no restrictions to opening of the oral cavity, jaw angle and posterior hypopharynx was clear. Lungs were clear to auscultation. Patient was placed in appropriate 30 to 45 degree angle in a supine position. Patient was monitored throughout the study with telemetry, oxygen saturation, end-tidal CO2 monitoring, blood pressure, heart rate, and respirations. Anterior and posterior defibrillator pads placed in the appropriate positions. After confirmation of adequate sedation electrical cardioversion was carried out without complication. Patient tolerated the procedure well without difficulty. Sedation: Moderate Sedation/Anesthesia administration: Patient denied previous intolerance or complications with anesthesia/sedation. Please see sedation note for documentation of the pre-procedure physical examination. A total of 2mg intravenous Versed and a total of 50mcg intravenous Fentanyl was utilized for moderate sedation. Sedation start time was 1130 and end time was 1135 for a total of 5 minutes [id number] intra-procedure time. Sedation was administered by a qualified observer Christina Heard RN under my supervision with intra-procedure [id number] observation and management throughout the entirety of the procedure. There were no other issues or complications and patient tolerated the procedure well and sedation protocol well and I was present for the entirety. Findings: Elective electrical cardioversion: After confirmation of adequate sedation and persistence of atrial flutter, 200 joules synched biphasic energy x1 was delivered with immediate anabaptism of sinus rhythm. Twelve lead EKG was obtained postprocedure confirming sinus rhythm. Complications: None Conclusion: successful anabaptism of sinus rhythm with 200 joules synched biphasic energy x1 without complication. continue present medical therapy. Follow-up with electrophysiology as scheduled as an outpatient. No interruption in systemic anticoagulation for least 30 days post cardioversion to reduce embolic stroke risk or less otherwise advised.
--- NOTE | 2023-02-12 11:45 | ECG_ITS ---
Measurements Intervals [place] Rate: 128 P: [place]: 0 QRS: -79 QRSD: 137 T: -48 QT: 334 QTc: 489 Interpretive Statements ATRIAL FLUTTER/TACHYCARDIA WITH RAPID VENTRICULAR RESPONSE RIGHT BUNDLE BRANCH BLOCK LEFT ANTERIOR FASCICULAR BLOCK CANNOT RULE OUT SEPTAL INFARCT, AGE INDETERMINATE ABNORMAL ECG COMPARED TO ECG 11/14/2022 12:29:13 ATRIAL FLUTTER NOW PRESENT LEFT ANTERIOR FASCICULAR BLOCK NOW PRESENT Electronically Signed On 02-12-2023 10:34:27 ENERGY CONSERVATION ENGINEER by Sancho Jordan D.O.
== END 2023-02-12 12:40 | disposition home or self-care (01) ==
PROVIDERS: Visit Provider Internal Medicine Cardiovascular Disease
PROC: 5A2204Z Restoration of Cardiac Rhythm, Single (ICD-10-PCS; principal; 2023-02-12 11:30)
DX: I48.92 Unspecified atrial flutter (principal); I44.0 Atrioventricular block, first degree; I44.4 Left anterior fascicular block; I45.10 Unspecified right bundle-branch block; R93.1 Abnormal findings on diagnostic imaging of heart and coronary circulation; I12.9 Hypertensive chronic kidney disease with stage 1 through stage 4 chronic kidney disease, or unspecified chronic kidney disease; E11.22 Type 2 diabetes mellitus with diabetic chronic kidney disease; N18.9 Chronic kidney disease, unspecified; F41.9 Anxiety disorder, unspecified; E78.5 Hyperlipidemia, unspecified; E03.9 Hypothyroidism, unspecified; J44.9 Chronic obstructive pulmonary disease, unspecified; I48.0 Paroxysmal atrial fibrillation; I25.5 Ischemic cardiomyopathy; K57.90 Diverticulosis of intestine, part unspecified, without perforation or abscess without bleeding; I25.2 Old myocardial infarction; Z79.51 Long term (current) use of inhaled steroids; Z79.01 Long term (current) use of anticoagulants; Z79.82 Long term (current) use of aspirin; Z79.84 Long term (current) use of oral hypoglycemic drugs; Z79.899 Other long term (current) drug therapy; Z98.890 Other specified postprocedural states; Z90.49 Acquired absence of other specified parts of digestive tract; Z95.5 Presence of coronary angioplasty implant and graft; Z86.79 Personal history of other diseases of the circulatory system; Z82.49 Family history of ischemic heart disease and other diseases of the circulatory system; Z80.8 Family history of malignant neoplasm of other organs or systems
CPT/HCPCS: 36415; 80048; 83735; 92960; J2250; J3010; J7030

== ENCOUNTER 2023-03-29 08:44 | Day surgery (SDC) | payer MEDICARE, SELFPAY ==
[2023-03-28 14:10] VITALS: BMI 34.4
[2023-03-29] VITALS (8 sets, daily range): BP systolic 101–137; BP diastolic 60–100; PULSE 52–120; RESP 12–20; TEMP 36.7; O2SAT 94–100; BMI 33.9
--- NOTE | 2023-03-29 08:30 | ECG_ITS ---
Measurements Intervals [place] Rate: 121 P: [place]: 0 QRS: 257 QRSD: 128 T: -5 QT: 337 QTc: 480 Interpretive Statements ATRIAL FIBRILLATION WITH RAPID VENTRICULAR RESPONSE RIGHT BUNDLE BRANCH BLOCK [120+ ms QRS DURATION, UPRIGHT V1, 40+ ms S IN I/aVL/V4/V5/V6] CANNOT RULE OUT ANTEROSEPTAL MYOCARDIAL INFARCTION , OF INDETERMINATE AGE [40+ ms Q WAVE IN V1-V4] COMPARED TO ECG 02/12/2023 11:36:33 ATRIAL FIBRILLATION NOW PRESENT Electronically Signed On 03-29-2023 13:25:35 FINAL ASSEMBLER [employer]AT by Mor Morton M.D.
--- NOTE | 2023-03-29 08:30 | ECG_ITS ---
Measurements Intervals [place] Rate: 56 P: 88 [place]: 204 QRS: -55 QRSD: 126 T: -11 QT: 460 QTc: 445 Interpretive Statements SINUS BRADYCARDIA RIGHT BUNDLE BRANCH BLOCK [120+ ms QRS DURATION, UPRIGHT V1, 40+ ms S IN I/aVL/V4/V5/V6] COMPARED TO ECG 03/29/2023 09:05:38 SINUS BRADYCARDIA NOW PRESENT Electronically Signed On 03-29-2023 13:27:34 VICE PRESIDENT REGULATORY by Mor Morton M.D.
[2023-03-29 09:38] LABS: Anion Gap 8 mmol/L (8-16); Blood Urea Nitrogen 25 mg/dL (7-17); Calcium 9.3 mg/dL (8.4-10.2); Carbon Dioxide 26 mmol/L (22-30); Chloride 104 mmol/L (98-107); Estimated CRCL calculation 36 ml/min; Estimated Glomerular Filt Rate 40; Glucose 194 mg/dL (65-110); Magnesium 2.4 mg/dL (1.6-2.3); Potassium 4.2 mmol/L (3.4-5.0); Sodium 138 mmol/L (137-145)
--- NOTE | 2023-03-29 10:16 | WPDHPUPDATE1 ---
History and Physical Update Update Date/Time: 03/29/23 10:16 History and Physical has been reviewed, including an updated exam of the patient. There are NO changes in the patient's condition. Risks, benefits, and alternatives have been discussed and questions answered. Patient agrees to proceed with procedure.
--- NOTE | 2023-03-29 10:16 | WPDMODSED ---
Moderate Sedation Note-Pt Data Patient Data Diagnosis: Atrial flutter with rapid ventricular response Present Complaint: fatigue history and physical update: Patient is a very pleasant 77-year-old female with a past medical history significant for paroxysmal atrial fibrillation and atrial flutter, CAD status post stent to RCA, anterior STEMI with drug-eluting stent to LAD, ischemic cardiomyopathy, diabetes mellitus, hypertension, hyperlipidemia with recurrence of symptomatic atrial flutter with RVR on sotalol with recent discontinuation in favor of amiodarone referred for elective cardioversion to establish sinus rhythm. Patient underwent EP study with AFib/ atrial flutter ablation by Dr Torre 02/26/2023. Patient is adamant she has been this to single dose of systemic anticoagulation for greater than 4 weeks. Impression/plan of care: 1. Symptomatic paroxysmal atrial flutter with RVR- elective cardioversion to restore sinus rhythm 2. CAD 3. history cardiomyopathy 4. diabetes mellitus 5. hypertension 6. chronic anticoagulation 7. amiodarone use plan to reduce amiodarone to 100 mg daily post cardioversion is successful. Follow-up with electrophysiology as scheduled. Continue current medical therapy without missing a single dose of systemic anticoagulation for least 30 days or until otherwise advised Procedure to be performed/Plan: elective electrical cardioversion Allergies Allergy/AdvReac Type Severity Reaction Status Date / Time sulfamethoxazole Allergy Unknown Hives Verified 03/29/23 09:14 Sulfa (Sulfonamide Allergy Hives Verified 03/29/23 09:14 Antibiotics) quinapril AdvReac Cough Verified 03/29/23 09:14 Home Medications Medication Instructions Recorded Confirmed Type albuterol sulfate 90 mcg/actuation 2 inh inhalation Q4H PRN Shortness 12/09/20 03/28/23 History aerosol inhaler Of Breath Or Wheezing alprazolam 0.25 mg tablet 0.25 mg PO TID PRN Anxiety 12/09/20 03/29/23 History apixaban 5 mg tablet (Eliquis) 5 mg PO BID 12/09/20 03/29/23 History blood sugar diagnostic (OneTouch 12/09/20 03/28/23 History Verio test strips) ergocalciferol (vitamin D2) 1,250 50,000 unit PO WEEKLY 12/09/20 03/28/23 History mcg (50,000 unit) capsule montelukast 10 mg tablet 10 mg PO DAILY 12/09/20 03/29/23 History simvastatin 20 mg tablet 20 mg PO DAILY 12/09/20 03/29/23 History docusate sodium 100 mg capsule 100 mg PO Q12HR PRN constipation 12/12/20 03/29/23 Rx #60 caps empagliflozin 10 mg tablet 10 mg PO DAILY #30 tabs 12/12/20 03/29/23 Rx (Jardiance) fexofenadine 180 mg tablet 180 mg PO DAILY PRN Allergy 01/14/21 03/28/23 History Symptoms fluticasone propionate 50 1 spray intranasal DAILY PRN 01/14/21 03/28/23 History mcg/actuation nasal Allergy Symptoms spray,suspension nitroglycerin 0.4 mg sublingual 0.4 mg sublingual Q5-15M PRN Chest 01/14/21 03/29/23 History tablet Pain levothyroxine 100 mcg tablet 100 mcg PO DAILY 05/20/21 03/29/23 History aspirin 81 mg tablet,delayed 81 mg PO DAILY 11/14/22 03/29/23 History release vit A 1000 unit-C 300 mg-E 100 1 tablet PO DAILY 11/14/22 03/29/23 History pboy-[id number]-B4-lutn 2 zj-stwv-[id number] tablet amiodarone 200 mg tablet (Pacerone) 200 mg PO DAILY 03/28/23 03/29/23 History Current Medications: Active Medications Sodium Chloride (Normal Saline Iv) 1,000 mls @ 30 mls/hr IV CONT .Q24H JEFFERY Sedation/Anesthesia: No previous sedation/anesthesia problems (including family history). [facility] Past Medical History Medical History Anxiety CAD (coronary artery disease) Chronic anticoagulation COPD (chronic obstructive pulmonary disease) DM2 (diabetes mellitus, type 2) Glaucoma History of atrial fibrillation Hyperlipidemia associated with type 2 diabetes mellitus Hypertension associated with type 2 diabetes mellitus Hypothyroidism Surgical History Surgical Hist
--- NOTE | 2023-03-29 10:22 | P.PCNCVR_ITS ---
Cardioversion Cardioversion Date of procedure: 03/29/23 Procedure: elective electrical cardioversion Pre-op diagnosis: atrial flutter with rapid ventricular response Post-op diagnosis: Same Indications: atrial flutter with rapid ventricular response Description of procedure: Brief history present illness: Patient is a pleasant 77-year-old female with history of CAD, paroxysmal atrial fibrillation and atrial flutter status post ablation, diabetes mellitus, hypertension, history of ischemic cardiomyopathy with recurrent atrial flutter p ost ablation failed sotalol requiring initiation of amiodarone subsequently referred for elective electrical cardioversion in attempt to restore sinus rhythm. Patient complained of fatigue and shortness of breath in atrial flutter. Procedure in detail: After verbal and written informed consent was obtained the patient risks, benefits, and alternatives explained in detail the patient agreed to proceed with the plan of care as outlined above. Patient was evaluated at bedside in the [facility] room. On examination, neck was supple with normal range of motion, no restrictions to opening of the oral cavity, jaw angle and posterior hypopharynx was clear. Lungs were clear to auscultation. Patient was placed in appropriate 30 to 45 degree angle in a supine position. Patient was monitored throughout the study with telemetry, oxygen saturation, end-tidal CO2 monitoring, blood pressure, heart rate, and respirations. Anterior and posterior defibrillator pads placed in the appropriate positions. After confirmation of adequate sedation electrical cardioversion was carried out without complication. Patient tolerated the procedure well without difficulty. Sedation: Moderate Sedation/Anesthesia administration: Patient denied previous intolerance or complications with anesthesia/sedation. Please see sedation note for documentation of the pre-procedure physical examination. A total of 2mg intravenous Versed and a total of 50mcg intravenous Fentanyl in multiple divided doses was utilized for moderate sedation. Sedation start time was 1026 and end time was 1032 for a total of 6 minutes [id number] intra-procedure time. Sedation was administered by a qualified observer Cassandra Alberto RN under my supervision with intra-procedure [id number] observation and management throughout the entirety of the procedure. There were no other issues or complications and patient tolerated the procedure well and sedation protocol well and I was present for the entirety. Findings: Elective electrical cardioversion: After confirmation of adequate sedation and persistence of atrial flutter with RVR, 200 joules synched biphasic energy x1 was delivered with immediate zoroastrianism of sinus rhythm. Twelve lead EKG was obtained postprocedure confirming sinus rhythm. Complications: None Conclusion: Successful zoroastrianism of sinus rhythm status post 200 joules synched biphasic energy x1. Recommendations: Continue current medical regimen including systemic anticoagulation with Eliquis 5 mg twice daily without missing a single dose for least the next 30 days or until otherwise advised. May reduce amiodarone to 400 mg daily x2 weeks then 200 mg daily thereafter. Follow-up with Dr. Torre and Dr. Cordova as scheduled.
--- NOTE | 2023-03-29 11:45 | SUR.PHASEII ---
Spoke with Dr. Cordova regirmaing patient's dose of amiodarone. Instructions placed stayed unchanged. Patient to take 400 mg once per day. Notified of patient having heart rate in the high 40's at times, lowest reading of 45. Stated patient is asymptomatic and usually resting rate is in the low 50's. Called office to schedule a one week EKG, date given to patient in discharge instructions.
== END 2023-03-29 11:50 | disposition home or self-care (01) ==
PROVIDERS: Visit Provider Internal Medicine Cardiovascular Disease
PROC: 5A2204Z Restoration of Cardiac Rhythm, Single (ICD-10-PCS; principal; 2023-03-29 10:00)
DX: I48.92 Unspecified atrial flutter (principal); I25.10 Atherosclerotic heart disease of native coronary artery without angina pectoris; I48.0 Paroxysmal atrial fibrillation; E11.9 Type 2 diabetes mellitus without complications; I10 Essential (primary) hypertension; E78.5 Hyperlipidemia, unspecified; E03.9 Hypothyroidism, unspecified; Z79.01 Long term (current) use of anticoagulants
CPT/HCPCS: 36415; 80048; 83735; 92960; J2250; J3010; J7030

== ENCOUNTER 2023-06-19 17:34 | Emergency (ER) | payer MEDICARE, SELFPAY ==
--- NOTE | ~2023-06-19 | XR_ITS ---
EXAMINATION: XR chest 2V Exam Date/Time: 06/19/2023 18:10 CDT HISTORY: chest pain Comparison: 05/20/2021. RESULT: Lines, tubes, and devices: Cholecystectomy clips. Lungs and pleura: Senescent changes, otherwise clear. Cardiomediastinal silhouette: Stable. Prominent pericardial fat pad. Other: No acute osseous or upper abdominal finding. Thoracolumbar scoliosis. Distal left clavicular resection or osteolysis. IMPRESSION: No acute cardiopulmonary process. Reviewed, dictated and finalized at location K.
--- NOTE | 2023-06-19 17:43 | ECG_ITS ---
SEE SCANNED COPY FOR CONFIRMED REPORT MTDD
[2023-06-19 17:44] VITALS: BP 158/100; PULSE 92; RESP 16; TEMP 36.5; O2SAT 96
--- NOTE | 2023-06-19 17:45 | ED.CHESTPAIN ---
HPI - Chest Pain General Chief Complaint: Chest Pain <LORRI Oliva Last Filed: 06/19/23 17:48> Stated Complaint: chest pain <LORRI Oliva Last Filed: 06/19/23 17:48> Time Seen by Provider: 06/19/23 17:40 <LORRI Oliva Last Filed: 06/19/23 17:48> Focused HPI: Patient is a 77-year-old female who presents the ED with report of chest pain. Patient reports she had appointment to have her CPAP fitted earlier today and blood pressure was noted to be elevated. By the time she got home, her blood pressure was increasingly elevated to 186/126. She then developed chest pain, in her midsternal chest, approximately 1.5 hours ago. Denies any aggravating or relieving factors. Denies radiation the pain. Pain is intermittent, is slightly improved currently. She reported mild shortness breath associated with pain. Denies lower extremity pain or swelling. Denies cough/cold sx's. Patient has history of CAD s/p stents, hypertension, on Metoprolol 25mg daily. Also has history of AFIB, amiodarone and Eliquis. Has previously seen Dr. Cordova. GENERAL: Elderly, well-nourished, and in no acute distress. HEAD: Normocephalic, atraumatic. CHEST: Clear to auscultation. ?No respiratory distress. HEART: Regular rate with irregular rhythm.? MSK: Mild tenderness in midsternal chest wall, reproducing pain. No lower ext edema/calf tenderness. NEURO: ?Alert and oriented x3. Patient screened in triage and initial orders placed.? ?Additional care and disposition to be based upon?diagnostic testing and treatment. <LORRI Oliva Last Filed: 06/19/23 17:48> Source: patient <LORRI Oliva Last Filed: 06/19/23 17:48> Mode of arrival: ambulatory <LORRI Oliva Last Filed: 06/19/23 17:48> Limitations: no limitations <LORRI Oliva Last Filed: 06/19/23 17:48> Related Data Home Medications: Home Medications Medication Instructions Recorded Confirmed albuterol sulfate 90 mcg/actuation 2 inh inhalation Q4H PRN Shortness 12/09/20 03/28/23 aerosol inhaler Of Breath Or Wheezing alprazolam 0.25 mg tablet 0.25 mg PO TID PRN Anxiety 12/09/20 03/29/23 apixaban 5 mg tablet (Eliquis) 5 mg PO BID 12/09/20 03/29/23 blood sugar diagnostic (OneTouch 12/09/20 03/28/23 Verio test strips) ergocalciferol (vitamin D2) 1,250 50,000 unit PO WEEKLY 12/09/20 03/28/23 mcg (50,000 unit) capsule montelukast 10 mg tablet 10 mg PO DAILY 12/09/20 03/29/23 simvastatin 20 mg tablet 20 mg PO DAILY 12/09/20 03/29/23 fexofenadine 180 mg tablet 180 mg PO DAILY PRN Allergy 01/14/21 03/28/23 Symptoms fluticasone propionate 50 1 spray intranasal DAILY PRN 01/14/21 03/28/23 mcg/actuation nasal Allergy Symptoms spray,suspension nitroglycerin 0.4 mg sublingual 0.4 mg sublingual Q5-15M PRN Chest 01/14/21 03/29/23 tablet Pain levothyroxine 100 mcg tablet 100 mcg PO DAILY 05/20/21 03/29/23 aspirin 81 mg tablet,delayed 81 mg PO DAILY 11/14/22 03/29/23 release vit A 1000 unit-C 300 mg-E 100 1 tablet PO DAILY 11/14/22 03/29/23 [id number]-K6-P6-lutn 2 tg-hzbb-ejdmrt tablet <Clemencia George PA-C - Last Filed: 06/19/23 17:48> Allergies/Adverse Reactions: Allergies Allergy/AdvReac Type Severity Reaction Status Date / Time sulfamethoxazole Allergy Unknown Hives Verified 06/19/23 19:03 Sulfa (Sulfonamide Allergy Hives Verified 06/19/23 19:03 Antibiotics) quinapril AdvReac Cough Verified 06/19/23 19:03 <Clemencia George PA-C - Last Filed: 06/19/23 17:48> Review of Systems Review of Systems: All systems as dictated in HPI <Stefan Clifford PA-C - Last Filed: 06/20/23 00:19> [facility] Past Medical History Medical History: Medical History Anxiety CAD (coronary artery disease) Chronic anticoagulation COPD (chronic obstructive pulmonary disease) DM2 (di
[2023-06-19 18:01] LABS: Basophils Absolute Auto 0.1 K/mm3 (0.0-0.1); Basophils Percent Auto 0.9 % (0.2-1.2); Eosinophils Absolute Auto 0.1 K/mm3 (0-0.3); Eosinophils Percent Auto 1.1 % (0-4.4); Hematocrit 49.3 % (37.0-47.0); Hemoglobin 15.8 g/dL (12.0-15.0); Immature Granulocyte Absolute 0.01 K/mm3 (0.00-0.031); Immature Granulocyte Percent A 0.2 % (0-0.5); Lymphocytes Percent Auto 14.7 % (18.3-44.2); Mean Corpuscular Hemoglobin 30.5 pg (26-34); Mean Corpuscular Volume 95.2 fl (80-100); Mean Platelet Volume 9.7 fl (7.4-10.4); Monocytes Absolute Auto 0.4 K/mm3 (0.1-0.6); Monocytes Percent Auto 6.4 % (2.6-8.5); Neutrophils Absolute Auto 4.2 K/mm3 (1.3-6.7); Neutrophils Percent Auto 76.7 % (45.5-73.1); Platelet Count Result 227 k/mm3 (150-375); Red Blood Count 5.18 M/mm3 (4.2-5.4); Red Cell Distribution Width 14.6 % (11.5-14.5); White Blood Count 5.5 K/mm3 (4.5-10.0)
[2023-06-19 18:17] LABS: INR 1.1
[2023-06-19 18:18] LABS: Alanine Aminotransferase 36 U/L (6-35); Albumin Level 5.1 g/dL (3.5-5.1); Alkaline Phosphatase 88 U/L (38-126); Anion Gap 8 mmol/L (4-12); Aspartate Amino Transferase 40 U/L (14-36); Bilirubin,Total 0.7 mg/dL (0.2-1.3); Blood Urea Nitrogen 29 mg/dL (7-17); Calcium 9.5 mg/dL (8.4-10.2); Carbon Dioxide 27 mmol/L (22-30); Chloride 102 mmol/L (98-107); Estimated CRCL calculation 34 ml/min; Estimated Glomerular Filt Rate 34; Glucose 151 mg/dL (65-110); Lipase 107 U/L (23-300); Partial Thromboplastin Time 29.1 Seconds (22.3-36.8); Potassium 4.7 mmol/L (3.4-5.0); Sodium 137 mmol/L (137-145)
[2023-06-19 18:29] LABS: NT Pro B Type Natriuretic Pept 3890 pg/mL (19.9-100); Troponin I < 0.012 ng/mL (0.000-0.034)
[2023-06-19 18:50] VITALS: BP 166/101; PULSE 92; RESP 16; O2SAT 97
[2023-06-19] MEDS: ASPIRIN 81 MG CHEWABLE TABLET 324 MG PO (19:46)
[2023-06-19 19:53] VITALS: PULSE 91
[2023-06-19 19:54] VITALS: O2SAT 99
--- NOTE | 2023-06-19 20:40 | ECG_ITS ---
SEE SCANNED COPY FOR CONFIRMED REPORT MTDD
[2023-06-19 21:03] VITALS: BP 145/90; PULSE 91; RESP 19; O2SAT 98
[2023-06-19 21:12] LABS: Troponin I < 0.012 ng/mL (0.000-0.034)
== END 2023-06-19 21:31 | disposition home or self-care (01) ==
PROVIDERS: Emergency Medicine; Emergency Provider Physician Assistant; PCP Hospitalist
DX: R07.9 Chest pain, unspecified (principal); I25.10 Atherosclerotic heart disease of native coronary artery without angina pectoris; I10 Essential (primary) hypertension; I48.91 Unspecified atrial fibrillation; Z79.01 Long term (current) use of anticoagulants; Z95.5 Presence of coronary angioplasty implant and graft; F41.9 Anxiety disorder, unspecified; Z79.82 Long term (current) use of aspirin; E11.9 Type 2 diabetes mellitus without complications; E78.5 Hyperlipidemia, unspecified; E03.9 Hypothyroidism, unspecified
CPT/HCPCS: 36415; 71046; 80053; 83690; 83880; 84484; 85025; 85610; 85730; 93005; 99284; A9270

== ENCOUNTER 2023-10-01 03:08 | Emergency (ER) | payer MEDICARE, SELFPAY ==
--- NOTE | ~2023-10-01 | XR_ITS ---
Clinical Indication: Chest pain PA and lateral views of the chest: Comparison: 06/19/2023 Findings: The lungs are clear, without evidence of focal consolidation or pleural effusion. Cardiome diastinal silhouette is within normal limits. Bones and soft tissues are unremarkable. Impression: Normal chest. Reviewed, dictated and finalized at location . Impression: Normal chest.
--- NOTE | 2023-10-01 03:09 | ECG_ITS ---
Test Date: 2023-10-01 03:12:48 Measurements Intervals [place] Rate: 88 P: 86 [place]: 289 QRS: 238 QRSD: 142 T: -1 QT: 362 QTc: 439 Interpretive Statements SINUS RHYTHM WITH FIRST DEGREE AV BLOCK INDETERMINATE AXIS RIGHT BUNDLE BRANCH BLOCK [120+ ms QRS DURATION, UPRIGHT V1, 40+ ms S IN I/aVL/V4/V5/V6] ABNORMAL ECG No previous ECG available for comparison Electronically Signed On 10-02-2023 07:15:44 CDT by Hardeep Ortiz M.D.
[2023-10-01 03:25] VITALS: BP 154/79; PULSE 88; RESP 15; TEMP 36.3; O2SAT 99
[2023-10-01 03:31] LABS: Basophils Percent Auto 0.3 % (0.2-1.2); Eosinophils Absolute Auto 0.1 K/mm3 (0-0.3); Eosinophils Percent Auto 1.3 % (0-4.4); Hematocrit 45.3 % (37.0-47.0); Hemoglobin 15.1 g/dL (12.0-15.0); Immature Granulocyte Absolute 0.01 K/mm3 (0.00-0.031); Immature Granulocyte Percent A 0.2 % (0-0.5); Lymphocytes Absolute Auto 0.82 K/mm3 (0.9-3.2); Lymphocytes Percent Auto 13.8 % (18.3-44.2); Mean Corpuscular HGB Conc 33.3 g/dl (32-36); Mean Corpuscular Hemoglobin 31.4 pg (26-34); Mean Corpuscular Volume 94.2 fl (80-100); Mean Platelet Volume 9.9 fl (7.4-10.4); Monocytes Absolute Auto 0.4 K/mm3 (0.1-0.6); Monocytes Percent Auto 7.2 % (2.6-8.5); Neutrophils Absolute Auto 4.6 K/mm3 (1.3-6.7); Neutrophils Percent Auto 77.2 % (45.5-73.1); Platelet Count Result 217 k/mm3 (150-375); Red Blood Count 4.81 M/mm3 (4.2-5.4); Red Cell Distribution Width 13.6 % (11.5-14.5)
[2023-10-01 03:39] LABS: Alanine Aminotransferase 99 U/L (6-35); Albumin Level 4.4 g/dL (3.5-5.1); Alkaline Phosphatase 132 U/L (38-126); Anion Gap 11 mmol/L (4-12); Aspartate Amino Transferase 124 U/L (14-36); Bilirubin,Total 0.5 mg/dL (0.2-1.3); Blood Urea Nitrogen 28 mg/dL (7-17); Calcium 9.2 mg/dL (8.4-10.2); Carbon Dioxide 24 mmol/L (22-30); Chloride 101 mmol/L (98-107); Estimated CRCL calculation 33 ml/min; Estimated Glomerular Filt Rate 36; Glucose 275 mg/dL (65-110); Lipase 173 U/L (23-300); Potassium 4.4 mmol/L (3.4-5.0); Sodium 136 mmol/L (137-145)
[2023-10-01 03:42] LABS: INR 1.1; Partial Thromboplastin Time 28.2 Seconds (22.3-36.8); Prothrombin Time 14.5 Seconds (11.1-14.7)
[2023-10-01 03:51] LABS: Troponin I < 0.012 ng/mL (0.000-0.034)
== END 2023-10-01 07:46 | disposition left against medical advice (07) ==
LOC: ANHED 07:45
PROVIDERS: Emergency Provider Emergency Medicine; PCP Hospitalist
DX: R07.9 Chest pain, unspecified (principal)
CPT/HCPCS: 36415; 71046; 80053; 83690; 84484; 85025; 85610; 85730; 93005; 99199

== ENCOUNTER 2023-12-11 09:11 | Emergency (ER) | payer MEDICARE, SELFPAY ==
[2023-12-11] VITALS (7 sets, daily range): BP systolic 141–192; BP diastolic 66–81; PULSE 50–61; RESP 13–19; TEMP 36.5; O2SAT 94–100
--- NOTE | ~2023-12-11 | XR_ITS ---
XR chest 2V Ordering provider: Nida Shi MD History: 78 years Female with . cp X LAST NIGHT . Comparison: October 01, 2023 FINDINGS: MEDIASTINUM: The cardiac silhouette is not enlarged. Prominent right hilum unchanged. LUNGS: No infiltrates, effusions or pneumothorax. OTHER: No free air under the diaphragm. Degenerative changes of the spine. IMPRESSION: No acute cardiopulmonary pathology. Reviewed, dictated and finalized at location A. [facility]
--- NOTE | 2023-12-11 09:13 | ECG_ITS ---
Test Date: 2023-12-11 09:21:18 Measurements Intervals [place] Rate: 60 P: 75 [place]: 202 QRS: 252 QRSD: 134 T: 11 QT: 434 QTc: 434 Interpretive Statements SINUS RHYTHM BORDERLINE AV CONDUCTION DELAY RIGHT BUNDLE BRANCH BLOCK CANNOT R/O SEPTAL INFARCT, AGE INDETERMINATE CONSIDER INFERIOR INFARCT, AGE INDETERMINATE BASELINE ARTIFACT- II, III, AVL, AVF ABNORMAL ECG Compared to ECG 10/01/2023 03:12:48 Myocardial infarct finding now present First degree AV block no longer present Electronically Signed On 12-11-2023 09:28:20 HEAD TENNIS PROFESSIONAL by Sancho Jordan D.O.
--- NOTE | 2023-12-11 09:35 | ED_ITS ---
HPI - Chest Pain General Chief Complaint: Chest Pain Stated Complaint: chest pain Time Seen by Provider: 12/11/23 09:19 History of Present Illness HPI narrative: patient started having some chest pain yesterday, has had symptoms like this in the past when she had a heart attack, pain is 9/10, already took full-dose aspirin several hours prior to arrival here. Feels like it is going down her left arm. Related Data Home Medications Medication Instructions Recorded Confirmed albuterol sulfate 90 mcg/actuation 2 inh inhalation Q4H PRN Shortness 12/09/20 03/28/23 aerosol inhaler Of Breath Or Wheezing alprazolam 0.25 mg tablet 0.25 mg PO TID PRN Anxiety 12/09/20 03/29/23 apixaban 5 mg tablet (Eliquis) 5 mg PO BID 12/09/20 03/29/23 blood sugar diagnostic (OneTouch 12/09/20 03/28/23 Verio test strips) ergocalciferol (vitamin D2) 1,250 50,000 unit PO WEEKLY 12/09/20 03/28/23 mcg (50,000 unit) capsule montelukast 10 mg tablet 10 mg PO DAILY 12/09/20 03/29/23 simvastatin 20 mg tablet 20 mg PO DAILY 12/09/20 03/29/23 fexofenadine 180 mg tablet 180 mg PO DAILY PRN Allergy 01/14/21 03/28/23 Symptoms fluticasone propionate 50 1 spray intranasal DAILY PRN 01/14/21 03/28/23 mcg/actuation nasal Allergy Symptoms spray,suspension nitroglycerin 0.4 mg sublingual 0.4 mg sublingual Q5-15M PRN Chest 01/14/21 03/29/23 tablet Pain levothyroxine 100 mcg tablet 100 mcg PO DAILY 05/20/21 03/29/23 aspirin 81 mg tablet,delayed 81 mg PO DAILY 11/14/22 03/29/23 release vit A 1000 unit-C 300 mg-E 100 1 tablet PO DAILY 11/14/22 03/29/23 [id number] 2 [id number]-[id number] tablet Allergies Allergy/AdvReac Type Severity Reaction Status Date / Time sulfamethoxazole Allergy Unknown Hives Verified 12/11/23 09:22 Sulfa (Sulfonamide Allergy Hives Verified 12/11/23 09:22 Antibiotics) quinapril AdvReac Cough Verified 12/11/23 09:22 Review of Systems Review of Systems: All systems reviewed & are unremarkable except as noted in HPI and below PMFSH Past Medical History Medical History Anxiety CAD (coronary artery disease) Chronic anticoagulation COPD (chronic obstructive pulmonary disease) DM2 (diabetes mellitus, type 2) Glaucoma History of atrial fibrillation Hyperlipidemia associated with type 2 diabetes mellitus Hypertension associated with type 2 diabetes mellitus Hypothyroidism Surgical History Surgical History H/O cataract extraction H/O heart artery stent Previous RCA and a stent today 12/09/2020 H/O partial thyroidectomy H/O right wrist surgery H/O tubal ligation Hx of cholecystectomy Family History Family History Mother Cancer Father Pulmonary emboli Sibling CAD (coronary artery disease) of artery bypass graft Malignant melanoma Social History Social History Social History: The patient tells me that she never smoked but she had secondhand exposure through her ex- and other family members as well as her job who. No alcohol marijuana or illicit drugs. 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 She had 7 children but only 6 arrived. She is . She is does not have a durable power environmental attorney for healthcare. Code status full code. Smoking packs per day: 0 Smoking cigarettes per day: 0.0 Years smoked: 0 Smoking pack-years: 0.00 Smoking status: Never smoker Second hand tobacco smoke exposure: Yes Alcohol intake: never Substance use: never Substance use type: does not use Living arrangements: with family Spiritual care concerns: No Exam Narrative: EXAMINATION OF ORGAN SYSTEMS/BODY AREAS: Constitutional: Vital signs per nursing GENERAL:[No acute distress, non-toxic appearing.] HEAD: Normal with no signs of head trauma. EYES: EOMI, conjunctiva normal ENT: Hearing grossly intact LUNGS: Nonlabored breathing. HEART: [Regular rate and rhythm] ABD: [Soft], [nontender to palpation] EXT: Normal range of motion SKIN: [No rashes or lesions.] NEURO: [Alert and oriented x 3. No gross focal sensory or strength deficits.] PSYCH: Normal affect Course Vital Signs Vital signs: Vital Signs Temperature 97.7 F 12/11/23 09:17 Pulse Rate 61 12/11/23 09:17 Respiratory Rate 18 12/11/23 09:17 Blood Pressure 192/81 H 12/11/23 09:17 Pulse Oximetry 99 12/11/23 09:17 Oxygen Delivery Room Air 12/11/23 09:17 Temperature 97.7 F 12/11/23 10:13 Pulse Rate 50 L 12/11/23 12:45 Respiratory Rate 16 12/11/23 12:45 Blood Pressure 157/73 H 12/11/23 12:45 Pulse Oximetry 98 12/11/23 12:45 Oxygen Delivery Room Air 12/11/23 11:50 MDM - Chest Pain MDM Narrative Medical decision making narrative: ED COURSE AND MEDICAL DECISION MAKINF presenting with chest pain. EKG done in triage negative for acute ischemic changes. Cardiac workup is initiated. EKG: Performed in triage 0921 and interpreted by me. Normal sinus rhythm. Rate 60. Normal axis. RI 202, QRS 134, QTC 434, right bundle branch block. No pathologic Q waves. No ST segment elevation or depression to suggest acute ischemia. No RV strain pattern. HEART score is 4 with no acute ischemic changes on EKG and negative troponin making ACS unlikely. Already on eliquis making PE unlikely. Presentation not consistent with dissection or aneurysm without radiation of pain or pulse deficits. CXR negative for mediastinal widening. No abdominal pain or signs of sepsis that would be concerning for esophageal perforation or mediastinitis. No cardiomegaly or JVD to suggest pericardial effusion/tamponade. Given dose of nitro here and on repeat evaluation just prior to discharge, the patient is no acute distress; her chest pain has completely resolved. repeat troponin is negative. Repeat EKG on my independent interpretation shows sinus rhythm rate 49, RI 202, QRS 128, QTC 447, left axis, right bundle branch block, no significant ST elevations or depressions. I had a long discussion with the patient and with shared decision making, she is comfortable with outpatient management. She was given clear return instructions by myself in person as well as on discharge paperwork. Lab Data 12/11/23 09:28 12/11/23 09:28 Labs: Lab Results 12/11/23 12/11/23 Range/Units 09:28 12:09 WBC 7.0 (4.5-10.0) K/mm3 RBC 4.87 (4.2-5.4) M/mm3 Hgb 15.2 H (12.0-15.0) g/dL Hct 45.8 (37.0-47.0) % MCV 94.0 (80-100) fl MCH 31.2 (26-34) pg MCHC 33.2 (32-36) g/dl RDW 13.7 (11.5-14.5) % Plt Count 250 (150-375) k/mm3 MPV 9.7 (7.4-10.4) fl Immature Gran % (Auto) 0.3 (0-0.5) % Neut % (Auto) 76.2 H (45.5-73.1) % Lymph % (Auto) 12.3 L (18.3-44.2) % [place] % (Auto) 8.3 (2.6-8.5) % Eos % (Auto) 2.2 (0-4.4) % Baso % (Auto) 0.7 (0.2-1.2) % Lymph # (Auto) 0.86 L (0.9-3.2) K/mm3 [place] # (Auto) 0.6 (0.1-0.6) K/mm3 Eos # (Auto) 0.2 (0-0.3) K/mm3 Baso # (Auto) 0.1 (0.0-0.1) K/mm3 Abs Immat Gran (auto) 0.02 (0.00-0.031) K/mm3 Absolute Neuts (auto) 5.3 (1.3-6.7) K/mm3 Absolute Nucleated RBC 0.000 (0.0-0.012) K/mm3 Nucleated RBC % 0.0 (0.0-0.2) % PT 13.2 (11.1-14.7) Seconds INR 1.0 APTT 27.1 (22.3-36.8) Seconds Sodium 136 L (137-145) mmol/L Potassium 4.4 (3.4-5.0) mmol/L Chloride 101 (98-107) mmol/L Carbon Dioxide 26 (22-30) mmol/L Anion Gap 9 (4-12) mmol/L BUN 27 H (7-17) mg/dL Creatinine 1.40 H (0.7-1.0) mg/dL Estim Creat Clear Calc 34 ml/min Estimated GFR 36 L (59 - ) Glucose 227 H (65-110) mg/dL Calcium 9.0 (8.4-10.2) mg/dL Total Bilirubin 0.6 (0.2-1.3) mg/dL AST 43 H (14-36) U/L ALT 44 H (6-35) U/L Alkaline Phosphatase 93 (38-126) U/L Troponin I 0.012 < 0.012 (0.000-0.034) ng/mL Total Protein 8.0 (6.3-8.2) g/dL Albumin 4.2 (3.5-5.1) g/dL Lipase 96 (23-300) U/L Discharge Plan Discharge Clinical Impression: Chest pain, Chronic pain of left upper extremity Patient Disposition: Home, Self-Care Condition: Stable Instructions: Chest Pain (ED), Arm Pain (ED) Additional Instructions: Please follow up with your doctor; you can always return for any further issues especially if your chest pain returns. Prescriptions: No Action (DME) OneTouch Verio test strips Strip MISCELLANEOUS alprazolam 0.25 mg tablet 0.25 mg PO TID PRN (Reason: Anxiety) simvastatin 20 mg tablet 20 mg PO DAILY montelukast 10 mg tablet 10 mg PO DAILY ergocalciferol (vitamin D2) 1,250 mcg (50,000 unit) capsule 50,000 unit PO WEEKLY Rx Instructions: takes on tuesdays albuterol sulfate 90 mcg/actuation HFA aerosol inhaler 2 inh INHALATION Q4H PRN (Reason: Shortness Of Breath Or Wheezing) Eliquis 5 mg tablet 5 mg PO BID docusate sodium 100 mg Capsule 100 mg PO Q12HR PRN (Reason: constipation) Qty: 60 0RF Jardiance 10 mg tablet 10 mg PO DAILY Qty: 30 0RF nitroglycerin 0.4 mg Tablet, Sublingual 0.4 mg SUBLINGUAL Q5-15M PRN (Reason: Chest Pain) Patient Comments: denies using reviewed proper instructions. fluticasone propionate 50 mcg/actuation [place],Suspension 1 spray intranasal DAILY PRN (Reason: Allergy Symptoms) Rx Instructions: allergies fexofenadine 180 mg Tablet 180 mg PO DAILY PRN (Reason: Allergy Symptoms) levothyroxine 100 mcg Tablet 100 mcg PO DAILY amiodarone [Pacerone] 200 mg tablet 400 mg PO DAILY 14 Days Qty: 28 0RF vit A,C,L-L3-[id number]-[id number]-ocm-bsgv 1,000 unit-300mg -100 unit-2 mg Tablet 1 tablet PO DAILY Rx Instructions: OCCUVITE aspirin 81 mg Tablet,Delayed Release (Dr/Ec) 81 mg PO DAILY Follow-up/Referrals: Narinder,Deon Farah MD [Primary Care Provider] -
[2023-12-11 09:39] LABS: Basophils Absolute Auto 0.1 K/mm3 (0.0-0.1); Basophils Percent Auto 0.7 % (0.2-1.2); Eosinophils Absolute Auto 0.2 K/mm3 (0-0.3); Eosinophils Percent Auto 2.2 % (0-4.4); Hematocrit 45.8 % (37.0-47.0); Hemoglobin 15.2 g/dL (12.0-15.0); Immature Granulocyte Absolute 0.02 K/mm3 (0.00-0.031); Immature Granulocyte Percent A 0.3 % (0-0.5); Lymphocytes Absolute Auto 0.86 K/mm3 (0.9-3.2); Lymphocytes Percent Auto 12.3 % (18.3-44.2); Mean Corpuscular HGB Conc 33.2 g/dl (32-36); Mean Corpuscular Hemoglobin 31.2 pg (26-34); Mean Platelet Volume 9.7 fl (7.4-10.4); Monocytes Absolute Auto 0.6 K/mm3 (0.1-0.6); Monocytes Percent Auto 8.3 % (2.6-8.5); Neutrophils Absolute Auto 5.3 K/mm3 (1.3-6.7); Neutrophils Percent Auto 76.2 % (45.5-73.1); Platelet Count Result 250 k/mm3 (150-375); Red Blood Count 4.87 M/mm3 (4.2-5.4); Red Cell Distribution Width 13.7 % (11.5-14.5)
[2023-12-11 09:50] LABS: Prothrombin Time 13.2 Seconds (11.1-14.7)
[2023-12-11 09:51] LABS: Partial Thromboplastin Time 27.1 Seconds (22.3-36.8)
[2023-12-11 09:52] LABS: Alanine Aminotransferase 44 U/L (6-35); Albumin Level 4.2 g/dL (3.5-5.1); Alkaline Phosphatase 93 U/L (38-126); Anion Gap 9 mmol/L (4-12); Aspartate Amino Transferase 43 U/L (14-36); Bilirubin,Total 0.6 mg/dL (0.2-1.3); Blood Urea Nitrogen 27 mg/dL (7-17); Carbon Dioxide 26 mmol/L (22-30); Chloride 101 mmol/L (98-107); Estimated CRCL calculation 34 ml/min; Estimated Glomerular Filt Rate 36; Glucose 227 mg/dL (65-110); Lipase 96 U/L (23-300); Potassium 4.4 mmol/L (3.4-5.0); Sodium 136 mmol/L (137-145)
[2023-12-11 10:03] LABS: Troponin I 0.012 ng/mL (0.000-0.034)
[2023-12-11] MEDS: NITROGLYCERIN SL 0.4 MG TABLET SUBLINGUAL (10:05)
[2023-12-11] MEDS: ASPIRIN 81 MG CHEWABLE TABLET 324 MG PO (10:05)
--- NOTE | 2023-12-11 10:31 | PC.NURSE ---
pt received 2 doses total of 0.4mg sublingual nitroglycerin. pt states she no longer has pain in her chest put still has pain to her left shoulder/arm.
--- NOTE | 2023-12-11 12:03 | ECG_ITS ---
Test Date: 2023-12-11 12:07:19 Measurements Intervals [place] Rate: 49 P: 74 [place]: 202 QRS: -55 QRSD: 128 T: -2 QT: 494 QTc: 447 Interpretive Statements SINUS BRADYCARDIA LEFT AXIS DEVIATION RIGHT BUNDLE BRANCH BLOCK CONSIDER ANTERIOR INFARCT, AGE INDETERMINATE INFERIOR INFARCT, AGE INDETERMINATE BASELINE ARTIFACT- I, II, III, AVR, AVF ABNORMAL ECG Compared to ECG 12/11/2023 09:21:18 HEART RATE HAS DECREASED Electronically Signed On 12-11-2023 12:17:56 [employer] by Sancho Jordan D.O.
[2023-12-11 12:41] LABS: Troponin I < 0.012 ng/mL (0.000-0.034)
== END 2023-12-11 13:20 | disposition home or self-care (01) ==
PROVIDERS: Emergency Provider Emergency Medicine; PCP Hospitalist
DX: R07.9 Chest pain, unspecified (principal); M79.602 Pain in left arm; I25.10 Atherosclerotic heart disease of native coronary artery without angina pectoris; I48.91 Unspecified atrial fibrillation; J44.9 Chronic obstructive pulmonary disease, unspecified; E11.69 Type 2 diabetes mellitus with other specified complication; E78.5 Hyperlipidemia, unspecified; E11.39 Type 2 diabetes mellitus with other diabetic ophthalmic complication; H42 Glaucoma in diseases classified elsewhere; E89.0 Postprocedural hypothyroidism; Z98.49 Cataract extraction status, unspecified eye; Z95.5 Presence of coronary angioplasty implant and graft; Z90.49 Acquired absence of other specified parts of digestive tract; Z77.22 Contact with and (suspected) exposure to environmental tobacco smoke (acute) (chronic); Z79.01 Long term (current) use of anticoagulants; Z79.899 Other long term (current) drug therapy; Z79.82 Long term (current) use of aspirin; Z79.84 Long term (current) use of oral hypoglycemic drugs; R94.31 Abnormal electrocardiogram [ECG] [EKG]; I45.10 Unspecified right bundle-branch block; R00.1 Bradycardia, unspecified
CPT/HCPCS: 36415; 71046; 80053; 83690; 84484; 85025; 85610; 85730; 93005; 99284; A9270

== ENCOUNTER 2024-02-18 11:16 | Outpatient (CLI) | payer MEDICARE, SELFPAY ==
--- NOTE | 2024-02-24 21:58 | WPDPFTINT ---
PFT Procedure Performed PFT Procedure Performed Plethysmography (Lung Vol) Diffusing Cap (DLCO) Flow Vol Loop Spirometry w/o Bronchodil PFT Interpretation DOS: 02/18/2024 REQUESTING: Sophia Sorenson MD REASON FOR TESTING: Amiodarone therapy PULMONARY FUNCTION TESTS Results are reliable and reproducible. Repeatability of spirometry FEV1 maneuver is Grade A. Jason: GLI 2012 reference equations were used. Spirometry: The FEV1 is 1.85 L, 92%. The FVC is 2.41 L, 91%. The FEV1/FVC ratio is 77%. These are all normal values. No bronchodilator was given. Lung volumes: The total lung capacity is 3.72 L, 73%, decreased. The residual volume is 1.31 L, 56%, decreased. The RV/TLC is 35%, minimally decreased. Airway resistance is normal. Diffusion: DLCO is 14.8, 75%, normal range. The DLCO/VA is 4.33, 104%, normal. Flow volume loop: The flow volume loop is normal. IMPRESSION: This study shows normal spirometry without airflow obstruction, mild restrictive ventilatory impairment and normal diffusion. There are no prior studies for comparison. Marian Martinez MD
== END 2024-02-18 11:17 | disposition home or self-care (01) ==
PROVIDERS: Visit Provider Internal Medicine Cardiovascular Disease
DX: Z01.811 Encounter for preprocedural respiratory examination (principal); Z79.899 Other long term (current) drug therapy
CPT/HCPCS: 94375; 94726; 94729

== ENCOUNTER 2024-06-02 13:48 | Outpatient (CLI) | payer MEDICARE, SELFPAY ==
[2024-06-02 14:37] LABS: Basophils Absolute Auto 0.1 K/mm3 (0.0-0.1); Basophils Percent Auto 1.2 % (0.2-1.2); Eosinophils Absolute Auto 0.1 K/mm3 (0-0.3); Eosinophils Percent Auto 2.7 % (0-4.4); Hemoglobin 13.7 g/dL (12.0-15.0); Immature Granulocyte Absolute 0.01 K/mm3 (0.00-0.031); Immature Granulocyte Percent A 0.2 % (0-0.5); Lymphocytes Absolute Auto 0.84 K/mm3 (0.9-3.2); Lymphocytes Percent Auto 17.4 % (18.3-44.2); Mean Corpuscular HGB Conc 31.9 g/dl (32-36); Mean Corpuscular Hemoglobin 31.6 pg (26-34); Mean Corpuscular Volume 99.1 fl (80-100); Monocytes Absolute Auto 0.5 K/mm3 (0.1-0.6); Monocytes Percent Auto 9.9 % (2.6-8.5); Neutrophils Absolute Auto 3.3 K/mm3 (1.3-6.7); Neutrophils Percent Auto 68.6 % (45.5-73.1); Platelet Count Result 221 k/mm3 (150-375); Red Blood Count 4.34 M/mm3 (4.2-5.4); Red Cell Distribution Width 13.6 % (11.5-14.5); White Blood Count 4.8 K/mm3 (4.5-10.0)
[2024-06-02 14:51] LABS: Albumin Level 4.5 g/dL (3.5-5.1); Anion Gap 11 mmol/L (4-12); Blood Urea Nitrogen 39 mg/dL (7-17); Calcium 9.6 mg/dL (8.4-10.2); Carbon Dioxide 25 mmol/L (22-30); Chloride 103 mmol/L (98-107); Estimated Glomerular Filt Rate 34; Glucose 147 mg/dL (65-110); Phosphorus 4.8 mg/dL (2.5-4.5); Potassium 5.1 mmol/L (3.4-5.0); Sodium 139 mmol/L (137-145)
[2024-06-02 15:38] LABS: Vitamin D 25 Hydroxy 48.6 ng/mL
[2024-06-02 15:50] LABS: Add Urine Microscopic? NO; Appearance Urine Clear (Clear); Bilirubin Urine Negative (Negative); Blood Urine Negative (Negative); Color Urine Yellow (Yellow); Glucose Urine UA 3+ mg/dL (Negative); Ketones Urine Negative (Negative); Leukocyte Esterase Ur Negative LEU/UL (Negative); Nitrate Urine Negative (Negative); Protein Urine Negative (Negative); Specific Grav Ur 1.027 (1.001-1.035); Urobilinogen Urine 0.2 mg/dL (<2.0); pH Urine 5.5 (5.0-9.0)
--- OUTSIDE RECORDS SUMMARY | 2024-06-02 15:52 | XMS_ITS | Referral Summary ---
Author Organization [facility] [address] Address [address] [place] [address] Care Team Providers Care Drafting Supervisor Name Role Phone Fer Barcenas MD Primary Care Provider [phone] Allergies Active Allergy Reactions Criticality Noted Date Comments Quinapril Cough Low Sulfa (Sulfonamide Antibiotics) Hives Medium Medications montelukast (SINGULAIR) 10 mg tablet Take one by mouth one time per day 0 0 9 Active Additional Information Patient taking differently:10 mgoral Nightly, Reported on 02/04/2024 blood glucose diagnostic (FREESTYLE LITE STRIPS) strip Take as directed 0 0 9 Active simvastatin (ZOCOR) 20 mg tablet Take one by mouth one time per day 0 0 9 Active Additional Information Patient taking differently:20 mgoral Nightly, Reported on 02/04/2024 nitroglycerin (NITROSTAT) 0.[address] 1 tablet (0.4MG) by sublingual route at the 1st sign of attack; may repeat every 5 min until relief; if pain persists after 3 tablets in 15 min, prompt medical attention is recommended 0 1 Active fexofenadine (AUSTYN) 180 mg tablet take 1 tablet (180MG) by oral route every day 0 1 Active Additional Information Patient taking differently:180 mgoral Daily PRN, Reported on 02/04/2024 ergocalciferol (VITAMIN D2) 50,000 unit capsule take 1 capsule ([id number]) by oral route every week 0 06/06/201 2 Active Additional Information Patient taking differently: 50,000 Units oral Weekly, Sunday, Reported on 02/04/2024 fluticasone (FLONASE) 50 mcg/actuation nasal spray spray 1 spray by intranasal route every day in each nostril 0 spray 0 5 Active Additional Information Patient taking differently: 1 spray Daily PRN, Reported on 02/04/2024 albuterol HFA (PROVENTIL HFA) 90 mcg/actuation inhaler inhale 2 puff by inhalation route every 4 - 6 hours as needed 0 Inhaler 0 6 Active ALPRAZolam (XANAX) 0.25 mg tablet Take one by mouth 3 time per day as needed 0 0 6 Active levothyroxine (SYNTHROID) 100 mcg tablet Take 1 tablet (100 mcg total) by mouth webbing weaver before breakfast Active Stool Softener 100 mg capsule TAKE ONE CAPSULE BY MOUTH EVERY 12 HOURS NEEDED FOR CONSTIPATION 1 Active aspirin (Adult Low Dose Aspirin) 81 mg enteric coated tablet Take 1 tablet (81 mg total) by mouth daily 3 Active vit C/vit E/lutein/min/ome ga-3 (OCUVITE ORAL) Take 1 tablet by mouth daily Active apixaban (ELIQUIS) 5 mg tablet Take 1 tablet (5 mg total) by mouth 2 (two) times a day 90 tablet 3 4 Active metoprolol XL (TOPROL-XL) 25 mg extended release tabletIndication s:Persistent atrial fibrillation (HCC) Take 1 tablet (25 mg total) by mouth daily 90 tablet 3 4 Active amiodarone (PACERONE) 200 mg tablet Take 1 tablet (200 mg total) by mouth daily 90 tablet 3 4 Active Jardiance 25 mg tablet Take 1 tablet (25 mg total) by mouth daily 4 Active Active Problems Problem Noted Date Diagnosed Date long-term current use of amiodarone 02/04/2024 Severe obesity 02/04/2024 NUNU (obstructive sleep apnea) 06/08/2023 Paroxysmal atrial flutter 11/13/2022 Stage 3 chronic kidney disease 05/10/2022 ANITA (acute kidney injury) 05/20/2021 Hyperkalemia 05/20/2021 H/O ST elevation myocardial infarction Cardiomyopathy, ischemic 03/18/2021 Encounter for monitoring sotalol therapy 019 History of cardioversion 03/07/2018 Subdural hematoma, post-traumatic 03/07/2018 Overview (03/07/2018): 12/2013 treated at [facility] Paroxysmal atrial fibrillation 02/06/2018 Chronic anticoagulation 02/06/2018 H/O: CVA (cerebrovascular accident) 02/06/2018 S/P coronary artery stent placement 07/18/2016 Mixed diabetic hyperlipidemi a associated with type 2 diabetes mellitus ([facility]) 01/11/2016 Overview (05/13/2016): Type 2 diabetes mellitus with stage 3 chronic kidney disease, without long-term current use of insulin Obesity, Class II, BMI 35-39.9, with comorbidity 01/11/2016 Overview (05/13/2016): Obesity, Class II, BMI 35.0-39.9, with comorbidity (see actual BMI) Obesity with body mass index 30 or greater 07/29 Overview (05/12/2016): Obesity (BMI 35.0-39.9 without comorbidity) Hypertension associated with diabetes 04/19/2015 Overview (05/12/2016): Uncontrolled hypertension Coronary artery disease invo lving ass[place] coronary artery of [place] heart without angina pectoris 04/19/2015 Overview (05/12/2016): Coronary artery disease involving ass[place] and sioux coronary artery of assin[place] and sioux heart with other form of angina pectoris Postoperative hypothyroidism 06/21/2013 Overview (05/10/2016): POSTSURGICAL HYPOTHYROID Resolved Problems Problem Noted Date Diagnosed Date Resolved Date Paroxysmal A-fib 02/26/2023 02/04/2024 Atrial flutter with rapid ve ntricular response 02/08/2023 02/04/2024 Dyslipidemia 07/18/2016 03/18/2021 History of cardiac catheterization 12/14/2014 04/30/2023 Overview (05/12/2016): S/P right coronary artery (RCA) stent placement Chest pain 12/14/2014 02/04/2024 Overview (05/12/2016): Chest pain, unspecified chest pain type Social History Tobacco Use Types Packs/Day Years Used Date Smoking Tobacco: Never Smokeless Tobacco: Never Tobacco Cessation:Counseling Given: Not Answered Alcohol Use Standard Drinks/Week Comments No 0 (1 standard drink = 0.6 oz pur e alcohol) AUDIT-C Answer Date Recorded Frequency of Alcohol Consumption Not on file 02/26/2023 Q2: How many drinks containi ng alcohol do you have on a typical day when you are drinking? Patient does not drink Frequency of Binge Drinking Not on file 02/06 Personal Safety Answer Date Recorded Have you ever been in or are you currently in a harmful physical or emotional relationship or is someone making you feel afraid or unsafe? Denies 02/26/2023 Comments No Sex and Gender Information Value Date Recorded Sex Assigned at Not on file Legal Sex Female 10:12 AM METAL FURNITURE POLISHER Gender Identity Not on file Sexual Orientation Not on file Last Filed Vital Signs Vital Sign Reading Time Taken Comments Blood Pressure 116/72 02/04/2024 9:07 AM METAL FURNITURE POLISHER Pulse 52 02/04/2024 9:07 AM METAL FURNITURE POLISHER Temperature 36.2 C (97.1 F) 02/26/2023 11:10 AM METAL FURNITURE POLISHER Respiratory Rate 18 10/23/2023 1:09 PM CDT Oxygen Saturation 97% 02/04/2024 9:07 AM METAL FURNITURE POLISHER Inhaled Oxygen Concentration - - Weight 93 kg (205 lb 1.6 oz) 02/04/2024 9:07 AM METAL FURNITURE POLISHER Height 162.6 cm (5' 4 ) 02/04/2024 9:07 AM METAL FURNITURE POLISHER Body Mass Index 35.21 02/04/2024 9:07 AM METAL FURNITURE POLISHER Plan of Treatment Not on file Medical Devices Implanted Type Area Cell Reliner Device Identifier Shelf Expiration Date Model / Serial / Lot [employer] Vascade Mvp 6-12fr Venous Closure [id number] - [id number] Implanted:Qty : 1 on 02/26/2023 by Samy Torre MD at [facility] Collagen Right: Femoral Vein [employer] 10/12/2024 800-612C- 10U / / [id number] [employer] Vascade Mvp 6-12fr Venous Closure [id number] - [id number] Implanted:Qty : 1 on 02/26/2023 by Samy Torre MD at [facility] Collagen Right: Femoral Vein [employer] 11/13/2024 800-612C- 10U / / [id number] [employer] Vascade Mvp 6-12fr Venous Closure [id number] - [id number] Implanted:Qty : 1 on 02/26/2023 by Samy Torre MD at [facility] Collagen Right: Femoral Vein [employer] 11/13/2024 800-612C- 10U / / [id number] Procedures Procedure Name Priority Date/Time Associated Diagnosis Comments EGFR Routine 07/05/2023 1:33 PM CDT At risk for amiodarone toxicity with long term care phlebotomist use POCT LIPID PANEL Routine 11/13/2022 4:04 PM CDT Mixed diabetic hyperlipidemia associated with type 2 diabetes mellitus (CMS/HCC) (HCC) CT VIRTUAL COLONOSCOPY DIAGNOSTIC WO CONTRAST Routine 10/23/2013 10:19 AM CDT from Last 3 Months or Most Recently Relevant to Health Maintenance Results * (ABNORMAL) eGFR (07/05/2023 1:33 PM CDT) eGFR 37(L) >=60 mL/min/1. 73 m2 Comment: Interpretive Data Reference Interval Normal >/= 90 mL/min/1.73m2 Mildly decreased* 60 - 89 mL/min/1.73m2 Mildly to moderately decreased 45 - 59 mL/min/1.73m2 Moderately to severely decreased 30 - 44 mL/min/1.73m2 Severely decreased 15 - 29 mL/min/1.73m2 Kidney Failure < 15 mL/min/1.73m2 *Relative to young adult level Estimated glomerular filtration rate is determined by the 2020 CKD-EPI equation recommended by the National Kidney Foundation (A Unifying Approach to GFR Estimation: Recommendations of the NKF-ASK Task Force on Reassessing the Inclusion of Race in Diagnosing Kidney Disease, JASBahman 2020). The CKD-EPI equation should not be used for patients with unstable renal function and has not been validated in children and those over 70. Current interpretive data was last reviewed 2020. Testing performed by: [facility], [facility], [place] [address] Blood 07/05/2023 1:33 PM CDT 07/05/2023 1:33 PM CDT Samy Torre MD LAB BLOOD ORDERABLES F inal Result ANDRES [id number] [address] Department [place] [address] * POCT lipid panel (11/13/2022 4:04 PM CDT) Cholesterol, POC 107 mg/dL Comment:GLU = 206 HDL, POC 39 mg/dL Triglycerides, POC 154 mg/dL LDL Cholesterol POC 37 mg/dL Chol/HDL Ratio, POC 1.0 Non-HDL Cholesterol, POC 68 mg/dL Cholesterol Total, POC 107 mg/dL Capillary blood 11/13/2022 4 :04 PM CDT Flip Cordova MD POINT OF CARE TEST ORDER TRACEY Final Result * CT Virtual Colonoscopy Diagnostic (10/23/2013 10:19 AM CDT) Anatomical Region Laterality Modality Body N/A Computed Tomogra phy 10/23/2013 10:1 9 AM CDT Narrative 10/23/2013 5:38 PM CDT PATRICE OCONNOR M.D. FINAL REPORT ACC# Date Time Exam [id number] Oct 23, 2013 10:19:[id number] Colonography Dx w/o EXAMINATION: CT COLONOGRAPHY WITHOUT CONTRAST HISTORY: Incomplete colonoscopy. TECHNIQUE: Computed tomographic examination of the abdomen and pelvis was performed without intravenous contrast. Carbon dioxide was insufflated into the colon through a rectal catheter prior to acquisition of images in the supine and prone as well as right lateral decubitus positions. Upon receiving the raw data, the images were then transferred to a Chartio work station for further 3-dimensional analysis. FINDINGS: Colonography findings: There is extensive distal descending and sigmoid colonic diverticulosis with chronic smooth muscle hypertrophy as evidenced by mild circumferential wall thickening through these regions. There are also a few scattered diverticula throughout the remainder of the colon. There is limited distention of the distal descending and sigmoid colon on all acquired series, although it is adequate for diagnostic purposes. No colonic mass or polyp is identified. Non Colonography findings: There is limited evaluation of solid organs within the abdomen and pelvis, as this CT is performed with low dose technique optimized for evaluation of colon. There is minimal bibasilar atelectasis. No pleural effusion. Within the limits of the noncontrast low-dose exam, the unenhanced contours of the liver, spleen, pancreas, and bilateral adrenals are unremarkable. The gallbladder is surgically absent. The kidneys are symmetric in size and normal in contour. No hydronephrosis. No ascites. No bowel obstruction. No pelvic free fluid. IMPRESSION: Extensive distal descending and sigmoid colonic diverticulosis with chronic smooth muscle hypertrophy. No colonic mass or polyp identified. Requested By: Dictated By: PATRICE OCONNOR M.D. on Oct 23 2013 5:38P This document has been electronically signed by: PATRICE OCONNOR M.D. on Oct 23 2013 5:38P [id number] Procedure Note Provider, MD Lavinia - 06/06/2016 PATRICE OCONNOR M.D. FINAL REPORT ACC# Date Time Exam [id number] Oct 23, 2013 10:19:[id number] Colonography Dx w/o EXAMINATION: CT COLONOGRAPHY WITHOUT CONTRAST HISTORY: Incomplete colonoscopy. TECHNIQUE: Computed tomographic examination of the abdomen and pelvis was performed without intravenous contrast. Carbon dioxide was insufflated into the colon through a rectal catheter prior to acquisition of images in the supine and prone as well as right lateral decubitus positions. Upon receiving the raw data, the images were then transferred to a Vitrea work station for further 3-dimensional analysis. FINDINGS: Colonography findings: There is extensive distal descending and sigmoid colonic diverticulosis with chronic smooth muscle hypertrophy as evidenced by mild circumferential wall thickening through these regions. There are also a few scattered diverticula throughout the remainder of the colon. There is limited distention of the distal descending and sigmoid colon on all acquired series, although it is adequate for diagnostic purposes. No colonic mass or polyp is identified. Non Colonography findings: There is limited evaluation of solid organs within the abdomen and pelvis, as this CT is performed with low dose technique optimized for evaluation of colon. There is minimal bibasilar atelectasis. No pleural effusion. Within the limits of the noncontrast low-dose exam, the unenhanced contours of the liver, spleen, pancreas, and bilateral adrenals are unremarkable. The gallbladder is surgically absent. The kidneys are symmetric in size and normal in contour. No hydronephrosis. No ascites. No bowel obstruction. No pelvic free fluid. IMPRESSION: Extensive distal descending and sigmoid colonic diverticulosis with chronic smooth muscle hypertrophy. No colonic mass or polyp identified. Requested By: Dictated By: PATRICE OCONNOR M.D. on Oct 23 2013 5:38P This document has been electronically signed by: PATRICE OCONNOR M.D. on Oct 23 2013 5:38P [id number] us Historical Provider MD AVALOS CT PROCEDURES Final R esult from Last 3 Months or Most Recently Relevant to Health Maintenance Insurance [facility] MEDICARE ADVANTAGE [facility] MEDICARE ADVANTAGE [facility] Care Teams Drafting Supervisor Relationship Specialty Start Date End Date Fer Barcenas MD [address] [place] [id number] PCP - General Family Medicine 05/20/21
--- OUTSIDE RECORDS SUMMARY | 2024-06-02 15:53 | XMS_ITS | Clinical Summary ---
Author Organization [facility] [address] Address [address] [place] [address] Care Team Providers Care Glass Maker Name Role Phone Fer Barcenas MD Primary Care Provider [phone] Allergies Active Allergy Reactions Criticality Noted Date [...] D2) 50,000 unit capsule take 1 capsule ([id number]) by oral route every week 0 06/06/201 [...] 1 tablet (100 mcg total) by mouth early childhood lead teacher before breakfast Active Stool Softener 100 mg [...] Active Problems Problem Noted Date Diagnosed Date senior care current use of amiodarone 02/04/2024 Severe obesity 02/04/2024 NUNU (obstructive sleep apnea) 06/08/2023 Paroxysmal atrial flutter 11/13/2022 Stage 3 chronic kidney disease 05/10/2022 ANITA (acute kidney injury) 05/20/2021 Hyperkalemia 05/20/2021 H/O ST elevation myocardial infarction Cardiomyopathy, ischemic 03/18/2021 Encounter for monitoring sotalol therapy 019 History of cardioversion 03/07/2018 Subdural hematoma, post-traumatic 03/07/2018 Overview (03/07/2018): 12/2013 treated at [facility] Paroxysmal atrial fibrillation 02/06/2018 Chronic anticoagulation 02/06/2018 H/O: CVA (cerebrovascular accident) 02/06/2018 S/P coronary artery stent placement 07/18/2016 Mixed diabetic hyperlipidemi a associated with type 2 diabetes mellitus ([facility]) 01/11/2016 Overview (05/13/2016): Type 2 diabetes mellitus [...] Uncontrolled hypertension Coronary artery disease invo lving [place] coronary artery of [place] heart without angina pectoris 04/19/2015 Overview (05/12/2016): Coronary artery disease involving [place] coronary artery of [place] heart with other form of angina pectoris [...] (05/12/2016): Chest pain, unspecified chest pain type Surgical History Surgery Date Site/Laterality Comments CHOLECYSTECTOMY Cholecystectomy THYROIDECTOMY Thyroidectomy CORONARY STENT PLACEMENT Coronary Stent Placement CATARACT EXTRACTION, BILATERAL APPENDECTOMY FRACTURE SURGERY Left leg - hardware TUBAL LIGATION ORIF DISTAL RADIUS FRACTURE Right Medical History Medical History Date Comments Diabetes mellitus (HCC) Diabetes Cardiovascular disease Coronary Artery Disease Hypertension Hypertension Hx Other Medical Diabetes Type I I Adiposity Obesity Hx Other Medical Renal Insuffici ency, Chronic Hx Other Medical Diverticulosis PONV (postoperative nausea a nd vomiting) Motion sickness Atrial fibrillation (HCC) Myocardial infarction (HCC) Coronary artery disease Hyperlipidemia COPD (chronic obstructive pu lmonary disease) (HCC) Asthma Diverticulitis of colon CKD (chronic kidney disease) stage 4, GFR 15-29 ml/min (HCC) Type 2 diabetes mellitus (HCC) Hypothyroidism Anxiety Arthritis Macular degeneration Brain bleed (HCC) 2014 fall from [place] [facility], fx leg, ribs, clavicle History of fractured rib 2014 Clavicle fracture 2014 left NUNU (obstructive sleep apnea) 06/08/2023 Family History Medical History Relation Name Comments Cancer Brother Heart attack Father Myocardial infa rction; Cancer Mother Cancer, unknown ; Diabetes type II Other Family hist ory of Diabetes -Type II; Breast cancer Sister 1 Cancer, breast ; Cancer Sister 1 Relation Name Status Comments Brother Father Mother Other Sister 1 Sister 2 Social History Tobacco Use Types Packs/Day Years [...] on file Legal Sex Female 10:12 AM UNIVERSITY MANAGER Gender Identity Not on file Sexual Orientation Not on file Obstetrics History Last Filed Vital Signs Vital Sign Reading Time Taken Comments Blood Pressure 116/72 02/04/2024 9:07 AM UNIVERSITY MANAGER Pulse 52 02/04/2024 9:07 AM UNIVERSITY MANAGER Temperature 36.2 C (97.1 F) 02/26/2023 11:10 AM UNIVERSITY MANAGER Respiratory Rate 18 10/23/2023 1:09 PM CDT Oxygen Saturation 97% 02/04/2024 9:07 AM UNIVERSITY MANAGER Inhaled Oxygen Concentration - - Weight 93 kg (205 lb 1.6 oz) 02/04/2024 9:07 AM UNIVERSITY MANAGER Height 162.6 cm (5' 4 ) 02/04/2024 9:07 AM UNIVERSITY MANAGER Body Mass Index 35.21 02/04/2024 9:07 AM UNIVERSITY MANAGER Plan of Treatment Health Maintenance Due Date Last Done Comments Albumin Creatinine Ratio, Urine 1945 Depression Screening 1945 Hemoglobin A1C 1945 Hepatitis C Screening 1945 Osteoporosis Screening-Bone Density Scan 1945 Dilated Eye Exam 1946 Foot Exam 1946 DTaP/Tdap/Td Vaccine (1 - Tdap) 1957 Hepatitis B Screening 1964 Zoster Vaccine (1 of 2) 1996 Well Visit 65+ 08/30/2011 Pneumococcal vaccine 65+ (2 of 2 - PPSV23) 03/22/2015 01/25/2015, 02/05/2010 Influenza Vaccine (#1) 2023 01/25/2015 Lipid Panel 11/14/2023 11/13/2022, 09/05, 11/10/2020, Additional history exists Fall Risk Assessment 02/27/2024 02/26/2023, 02/08/19 24 eGFR 07/04/2024 07/05/2023, 03/09, 02/22/2023, Additional history exists Colon Cancer Screening-CT Colonography Discontinued 10/23/2013 Colon Cancer Screening-Colonoscopy Discontinued 10/23/2013 Colon Cancer Screening-DNA Stool Discontinued 10/24/19 14 Colon Cancer Screening-FIT Discontinued 10/23/2013 Colon Cancer Screening-FOBT Discontinued 10/23/2013 Colon Cancer Screening-Sigmoidoscopy Discontinued 10/23/2013 Colorectal Cancer Screening Discontinued Medical Devices Implanted Type Area Continuous Improvement Analyst Device Identifier Shelf Expiration Date Model / Serial / Lot [employer] Vascade Mvp 6-12fr Venous Closure [id number] - [id number] Implanted:Qty : 1 on 02/26/2023 by Samy Torre MD at [facility] Collagen Right: Femoral Vein [employer] 10/12/2024 800-612C- [id number] / / [id number] [employer] Vascade Mvp 6-12fr Venous Closure [id number] - [id number] Implanted:Qty : 1 on 02/26/2023 by Samy Torre MD at [facility] Collagen Right: Femoral Vein [employer] 11/13/2024 800-612C- 10U / / [id number] [employer] Vascade Mvp 6-12fr Venous Closure [id number] - [id number] Implanted:Qty : 1 on 02/26/2023 by Samy Torre MD at [facility] Collagen Right: Femoral Vein [employer] 11/13/2024 800-612C- 10U / / [id number] Procedures Procedure Name Priority Date/Time Associated Diagnosis Comments EGFR Routine 07/05/2023 1:33 PM CDT At risk for amiodarone toxicity with group home use POCT LIPID PANEL Routine 11/13/2022 4:04 [...] Inclusion of Race in Diagnosing Kidney Disease, JASN 2020). The CKD-EPI equation should not be used for patients with unstable renal function and has not been validated in children and those over 70. Current interpretive data was last reviewed 2020. Testing performed by: [facility], [address] [place], [place] [address], [place] [address] Blood 07/05/2023 1:33 PM CDT 07/05/2023 1:33 PM CDT Samy Torre MD LAB BLOOD ORDERABLES F inal Result [id number] [address] Department [place] [address] * POCT lipid panel (11/13/2022 4:04 PM CDT) Cholesterol, POC 107 mg/dL Comment:GLU = 206 HDL, POC 39 mg/dL Triglycerides, POC 154 mg/dL LDL Cholesterol POC 37 mg/dL Chol/HDL Ratio, POC 1.0 Non-HDL Cholesterol, POC 68 mg/dL Cholesterol Total, POC 107 mg/dL Capillary blood 11/13/2022 4 :04 PM CDT us Flip Cordova MD POINT OF CARE TEST ORDER TRACEY Final Result * CT Virtual Colonoscopy Diagnostic (10/23/2013 10:19 AM CDT) Anatomical Region Laterality Modality Body N/A Computed Tomogra phy 10/23/2013 10:1 9 AM CDT Narrative 10/23/2013 5:38 PM CDT PATRICE OCONNOR M.D. FINAL REPORT [facility]# Date Time Exam [id number] Oct 23, 2013 10:19:[id number] Colonography Dx w/o EXAMINATION: CT COLONOGRAPHY [...] the images were then transferred to a [employer] work station for further 3-dimensional analysis. FINDINGS: [...] OCONNOR M.D. on Oct 23 2013 5:38P [id number] Procedure Note Provider, MD Lavinia - 06/06/2016 PATRICE OCONNOR M.D. FINAL REPORT [facility]# Date Time Exam [id number] Oct 23, 2013 10:19:[id number] Colonography Dx w/o EXAMINATION: CT COLONOGRAPHY [...] the images were then transferred to a [employer] work station for further 3-dimensional analysis. FINDINGS: [...] OCONNOR M.D. on Oct 23 2013 5:38P [id number] us Historical Provider MD AVALOS CT PROCEDURES Final R esult from Last 3 Months or Most Recently Relevant to Health Maintenance Insurance [facility]IC[facility] ADVANT[facility] Address: [address] [address] [place] [address] MEDICARE ADVANTAGE [facility] MEDICARE Address: [address] [address] [place] [address] Care Teams Glass Maker Relationship Specialty Start Date End Date Fer Barcenas MD [address] [place] [id number] PCP - General Family Medicine 05/20/21
--- OUTSIDE RECORDS SUMMARY | 2024-06-02 15:53 | XMS_ITS ---
Author Organization [facility] Support Name Relationship Address Phone Jenni Salinas Guarantor [address] [place] [address] Jenni Salinas Agent [address] [place] [address] Annabelle Salinas Emergency Contact [address] [place] [address] Allergies and adverse reactions Code CodeSystem Substance Reaction Severity StartDate Concern Status [id number] SNOMED CT Sulfa Antibiotics Moderate 4 active Immunizations Immunization Status Vaccine Details Vaccine Code CodeSystem Date Notes Hepatitis B cancelled hepatitis B vaccine, adult dosage 43 CVX created date: 12/24/2013 consent date: 12/24/2013 TB 2 Step Mantoux Skin Test completed tuberculin skin test; unspecified formulation lotNumber: [id number] expiry: 02/05/2015 Mfg: [employer] Given 0.1 ml Right Forearm intradermally Step 2 of Multi-step with next step required 98 CVX created date: 01/08/2014 administer ed date: 01/02/2014 Educated by MLaPean LOCKSTITCH COAT JOINER on 01/02/2014 TB 2 Step Mantoux Skin Test completed tuberculin skin test; unspecified formulation lotNumber: [id number] expiry: 02/05/2015 Mfg: [employer] Given 0.1 ml Left Forearm intradermally Step 1 of Multi-step with next step required 98 CVX created date: 12/24/2013 administer ed date: 12/19/2013 Educated by MLaPean [employer]OCKSTITCH COAT JOINER on 12/19/2013 Mental Status Section Date Assessment Total Score Description 02/12/2014 BIMS 15 cognitively int act PHQ-9 06 mild depression 01/15/2014 BIMS 15 cognitively int act PHQ-9 00 Reason for Referral No Reasons for Referral Entered Social History Social History Observation Description Start Date End Date Code Code System Current Smoking Status Tobacco smoking consumption unknown [id number] SNOMED CT Sex Assigned At Female 1945 18375-1 [facility] Vital Signs Code Code System Vitals Name Values and Units Timing Information 2339-0 [facility] Blood Sugar Value=93.0 Units=mg/dL 02/12/2014 83271-6 [facility] Pain Level Value=7.0 02/12/2014 64503-7 [facility] Weight Vcnho=048.0 Units=Lbs 08/2014 9279-1 [facility] Respiratory Rate Value=18.0 Units=/m in 02/11/2014 8867-4 [facility] Heart rate Value=92.0 Units=/min 08/2014 8310-5 [facility] Body Temperature Value=96.8 Units= F 02/11/2014 8462-4 [facility] Blood Pressure-Diastolic Value=63 Un its=mmHg 02/11/2014 8480-6 [facility] Blood Pressure-Systolic Bxhxd=647 Un its=mmHg 02/11/2014 72755-3 [facility] O2 % BldC Oximetry Value=97.0 Units= % 01/22/2014 8302-2 [facility] Height Value=64.0 Units=Inches 12/19/2013
--- OUTSIDE RECORDS SUMMARY | 2024-06-02 15:53 | XMS_ITS | Clinical Summary ---
Author Organization [facility] Edilma rendon Address [address] [place] [id number] Phone Care Team Providers Care Robotics Engineer Name Role Phone Fer Barcenas MD Primary Care Provider Unavailabl e Allergies Active Allergy Reactions Criticality Noted Date Comments Sulfa Antibiotics 02/12/2024 Medications Empagliflozin (Jardiance) 10 MG tablet Take 10 mg by mouth 1 (one) time each day Active ALPRAZolam (XANAX) 0.25 MG tablet Take 0.25 mg by mouth 3 (three) times a day if needed for anxiety Active ergocalciferol (VITAMIN D-2) 1.25 MG (33089 UT) capsule Take 50,000 Units by mouth 1 (one) time per week Active levothyroxine (SYNTHROID) 100 MCG tablet Take 100 mcg by mouth 1 (one) time each day Active ticagrelor (BRILINTA) 90 MG tablet Take 90 mg by mouth in the morning and 90 mg in the evening. Active amoxicillin (AMOXIL) 500 MG capsule Take 500 mg by mouth in the morning and 500 mg at noon and 500 mg in the evening. Active sotalol (BETAPACE) 80 MG tablet Take 80 mg by mouth in the morning and 80 mg in the evening. Active simvastatin (ZOCOR) 20 MG tablet Take 20 mg by mouth every night Active amLODIPine (NORVASC) 10 MG tablet Take 10 mg by mouth 1 (one) time each day Active VITAMIN D, CHOLECALCIFEROL , PO Take by mouth Active vit A,C and T-nohyaz-yxszsc ls (OCUVITE) tablet Ocuvite Eye Plus Multi [id number] 0mcg tablet Active fluticasone (FLONASE) 50 MCG/ACT nasal spray Administer 1 spray into each nostril 1 (one) time each day Shake gently. Before first use, prime pump. After use, clean tip and replace cap. Active nitroglycerin (NITROSTAT) 0.[address] 0.4 mg under the tongue PRN up to TID Active apixaban (ELIQUIS) 5 MG tablet Take 5 mg by mouth in the morning and 5 mg in the evening. Active montelukast (SINGULAIR) 10 MG tablet Take 10 mg by mouth every night Active fexofenadine (AUSTYN) 180 MG tablet Take 180 mg by mouth 1 (one) time each day Active docusate sodium (COLACE) 50 MG capsule Take 50 mg by mouth Active clopidogrel (PLAVIX) 75 MG tablet Take 75 mg by mouth 1 (one) time each day Active albuterol HFA (PROVENTIL HFA) 108 (90 Base) MCG/ACT inhaler Inhale 2 puffs every 6 (six) hours if needed for wheezing Active Semaglutide,0.2 5 or 0.5MG/DOS, (Ozempic, 0.25 or 0.5 MG/DOSE,) 2 MG/3ML solution pen-injector Inject under the skin every 7 (seven) days Active amLODIPine-vals danna (EXFORGE) 10-160 MG per tablet Take 1 tablet by mouth 1 (one) time each day Active Active Problems Problem Noted Date Diagnosed Date Type 2 diabetes mellitus without complication Atrial fibrillation 02/12/2024 Essential (primary) hypertension 03/07/2014 Hyperlipidemia 03/07/2014 Overview (04/20/2018): Converted unresolved ICD9, potential mismatch. Hypothyroidism 03/07/2014 Chronic obstructive pulmonary disease 03/07/2014 Resolved Problems Problem Noted Date Diagnosed Date Resolved Date Hypertensive chronic kidney disease with stage 1 through stage 4 chronic kidney disease, or unspecified chronic kidney disease 10/20/2014 02/12/2024 Chronic kidney disease, stage 2 (mild) 05/05/2014 02/12/2024 Chronic kidney disease 03/07/201402/11 Type 2 diabetes mellitus wit h other diabetic kidney complication 03/07/2014 02/12/2024 Atherosclerotic heart diseas e of [place] coronary artery without angina pectoris 03/07/2014 02/12/2024 Polyosteoarthritis 03/07/2014 Encounters Date Type Department Care Team Description 04/01/2024 4:20 PM BEAMING INSPECTOR Office Visit [facility] [address] [facility] [address] [place] [address] Otto Alvarez MD Chronic kidney disease stage 4 (CMS-HCC) (Primary Dx); Essential hypertension from Last 3 Months Immunizations Immunization Administration Dates Next Due Influenza TIV (IM) 01/25/2015 Pneumococcal Conjugate 13-Valent 01/25/2015 Family History Medical History Relation Comments Coronary arteriosclerosis Father Heart disease Father Hypertensive disorder Father Diabetes mellitus Mother Malignant neoplastic disease Mother Diabetes mellitus Sibling Hypertensive disorder Sibling Malignant neoplastic disease Sibling Kidney disease Neg Hx Kidney stone Neg Hx Relation Status Comments Father Mother Sibling Social History Tobacco Use Types Packs/Day Years Used Date Smoking Tobacco: Never Smokeless Tobacco: Never Tobacco Cessation:Counseling Given: Not Answered Alcohol Use Standard Drinks/Week Comments Never 0 (1 standard drink = 0.6 oz pur e alcohol) Comments Unknown Sex and Gender Information Value Date Recorded Sex Assigned at Not on file Legal Sex Female 7:47 AM [facility] Gender Identity Not on file Sexual Orientation Not on file Last Filed Vital Signs Vital Sign Reading Time Taken Comments Blood Pressure 178/80 04/01/2024 4:56 PM BEAMING INSPECTOR Pulse 84 04/01/2024 4:56 PM BEAMING INSPECTOR Temperature 37.1 C (98.7 F) 01/26/2016 12:01 AM BEAMING INSPECTOR Respiratory Rate - - Oxygen Saturation - - Inhaled Oxygen Concentration - - Weight 93 kg (205 lb) 04/01/2024 4:56 PM BEAMING INSPECTOR Height 162.6 cm (5' 4 ) 04/01/2024 4:56 PM BEAMING INSPECTOR Body Mass Index 35.19 04/01/2024 4:56 PM BEAMING INSPECTOR Plan of Treatment Upcoming Encounters Date Type Department Care Team (Late st Contact Info) Description 06/03/2024 3:40 PM CDT Office Visit [facility] [address] [facility] [address] [place] [address] Otto Alvarez MD [address] [id number] Health Maintenance Due Date Last Done Comments Diabetic Foot Exam 1955 Ophthalmology Exam 1955 Pneumococcal PPSV23/PCV13 65 + Years / High and Highest Risk (2 of 4 - PPSV23) 03/22/2015 01/25/2015 Influenza Vaccine (Season Ended) 2024 01/26/20 15 Care Teams Robotics Engineer Relationship Specialty Start Date End Date Fer Barcenas MD PCP - General 11/20/23
--- OUTSIDE RECORDS SUMMARY | 2024-06-02 15:54 | XMS_ITS | Clinical Summary ---
Author Organization [facility] Address [address] [place] [address] Care Team Providers Care Plumbing Foreman Name Role Phone Juanita Pendleton MD Primary Care Provider Social History Tobacco Use Types Packs/Day Years Used Date Smoking Tobacco: Never Assessed Comments Unknown Sex and Gender Information Value Date Recorded Sex Assigned at Not on file Legal Sex Female 9:35 PM CDT Gender Identity Not on file Sexual Orientation Not on file Plan of Treatment Health Maintenance Due Date Last Done Comments Hepatitis C 1963 DTaP, Tdap and Td Vaccines ( 1 - Tdap) 1965 Zoster Vaccines (1 of 2) 1996 Dexa Scan (General) 08/30/2011 Pneumococcal Vaccine: 50+ Ye ars (2 of 2 - PPSV23) 01/26/2016 01/25/2015 RSV Immunization or 60+ Years (1 - 1-dose 75+ series) 2021 COVID-19 Vaccine (1 - 2023-2 5 season) 2023 Meningococcal B Vaccine Aged Out No l onger eligible based on patient's age to complete this topic Meningococcal Vaccine Aged Out No karolina peace eligible based on patient's age to complete this topic RSV Immunizations Under 20 Months Aged Out No longer eligible based on patient's age to complete this topic Care Teams Plumbing Foreman Relationship Specialty Start Date End Date Juanita Pendleton MD [address] [place] [address] PCP - General 04/15/13
--- OUTSIDE RECORDS SUMMARY | 2024-06-02 15:54 | XMS_ITS | Encounter Summary ---
Author Organization [facility] Address [address] [place] [address] Care Team Providers Care Family Welfare Social Work Professor Name Role Phone Juanita Pendleton MD Primary Care Provider Encounter Details Date Type Department Care Team (Late st Contact Info) Description 12/12/2023 [facility] [address] [address] Sabrina Sheth MA Social History Tobacco Use Types Packs/Day Years Used Date Smoking Tobacco: Never Assessed Comments Unknown Sex and Gender Information Value Date Recorded Sex Assigned at Not on file Legal Sex Female 9:35 PM CDT Gender Identity Not on file Sexual Orientation Not on file documented as of this encounter Plan of Treatment Not on file documented as of this encounter Procedures Procedure Name Priority Date/Time Associated Diagnosis Comments PROTIME (OUTSIDE LAB) Routine 12/11/2023 COMPREHENSIVE METABOLIC PANEL Routine 12/11/2023 CBC, MANUAL DIFF Routine 12/11/2023 documented in this encounter Results * PROTIME (OUTSIDE LAB) (12/11/2023) PROTIME 13.2 INR 1.0 12/11/2023 us Default History Genericprovider LAB-OUTSIDE/ABST RACTED Final Result * (ABNORMAL) COMPREHENSIVE METABOLIC PANEL (12/11/2023) SODIUM S/P/B 136 GLUCOSE 227 mg/dL AST 43 BUN 27 CREATININE S/P/B 1.40(A) 0.5 - 1.0 CALCIUM S/P/B 9.0 POTASSIUM S/P/B 4.4 CHLORIDE S/P/B 101 ALT 44 GFR ESTIMATE 36 us Default History Genericprovider LABORATORY Final Result * CBC, MANUAL DIFF (12/11/2023) WBC 7.0 HGB 15.2 HCT 45.8 PLT 250 us Default History Genericprovider LABORATORY Final Result documented in this encounter Visit Diagnoses Not on filedocumented in this encounter Care Teams Family Welfare Social Work Professor Relationship Specialty Start Date End Date Juanita Pendleton MD [address], [place] [address] PCP - General 04/15/13 documented as of this encounter
--- OUTSIDE RECORDS SUMMARY | 2024-06-02 15:54 | XMS_ITS | Clinical Summary ---
Author Organization [facility] Address [address] [place] [place] [address] Care Team Providers Care Dial Equipment Engineer Name Role Phone Unavailable Primary Care Provider Unavailabl e Source Comments [facility] [employer],non-owned Affiliates and Associated Physician Practices is amultiple site organization consisting of ambulatory clinics and hospital sitesin [place], [place], [place] and [place]. This disclosure is being madepursuant to the Care Everywhere program and may not contain all information available regarding this patient. Last updated 17.[facility] [employer] Social History Tobacco Use Types Packs/Day Years Used Date Smoking Tobacco: Never Assessed Comments Unknown Sex and Gender Information Value Date Recorded Sex Assigned at Not on file Legal Sex Female 6:56 AM MA[facility]RE D Gender Identity Not on file Sexual Orientation Not on file Last Filed Vital Signs Vital Sign Reading Time Taken Comments Blood Pressure 110/70 03/10/2014 12:47 PM MAITRE D Pulse 83 01/15/2014 9:24 AM MA[facility]RE D Temperature 36.7 C (98 F) 04/21/2014 11:10 AM CDT Respiratory Rate 18 12/18/2013 2:37 PM MA[facility] D Oxygen Saturation 96% 12/18/2013 2:37 PM MAITRE D Inhaled Oxygen Concentration - - Weight 93.9 kg (207 lb) 04/21/2014 11:10 AM CDT Height 162.6 cm (5' 4 ) 04/21/2014 11:10 AM CDT Body Mass Index 35.53 04/21/2014 11:10 AM CDT Plan of Treatment Health Maintenance Due Date Last Done Comments BONE DENSITY TESTING 1945 HEPATITIS C SCREENING 08/24/1963 DTAP/TDAP/TD VACCINES (1 - Tdap) 1965 PNEUMOCOCCAL VACCINE 50+ (1 of 1 - PCV) 1996 ZOSTER VACCINE (1 of 2) 1996 Respiratory Syncytial Virus (RSV) Vaccine Pt: or over 60 yrs (1 - 1-dose 75+ series) 2021 COVID-19 VACCINE (2023-2 5 season) 2023 DEPRESSION SCREENING 02/06/2024 INFLUENZA VACCINE (Season Ended) 2024 HEPATITIS B VACCINE Aged Out No longe r eligible based on patient's age to complete this topic HIB VACCINE Aged Out No longer eligi ble based on patient's age to complete this topic HPV VACCINE Aged Out No longer eligi ble based on patient's age to complete this topic MENINGOCOCCAL (Group B) VACC INE SHARED DECISION-MAKING Aged Out No longer eligibl e based on patient's age to complete this topic MENINGOCOCCAL GROUPS A/C/Y/W VACCINE Aged Out No longer eligible b ased on patient's age to complete this topic
[2024-06-02 16:34] LABS: Creatinine Urine 96.3 mg/dL; Total Protein Urine Random 15 mg/dL
== END 2024-06-02 13:49 | disposition home or self-care (01) ==
LOC: ANHLAB 13:52
PROVIDERS: Visit Provider Hospitalist
DX: I12.9 Hypertensive chronic kidney disease with stage 1 through stage 4 chronic kidney disease, or unspecified chronic kidney disease (principal); N18.4 Chronic kidney disease, stage 4 (severe)
CPT/HCPCS: 36415; 80069; 81003; 81050; 82306; 82570; 84156; 85025